=== PATIENT | female | born 2000 | race Hispanic/Latino ===

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

== ENCOUNTER → 2024-01-19 | Emergency (ER) | payer OTHER, SELFPAY ==
[~2024-01-19] MED LIST: ACETAMINOPHEN 325 MG TABLET ONE; BUPIVACAINE 0.5% PF 10 ML VIAL ONE; DOXYCYCLINE 100 MG CAP PO ONE; HYDROCODONE/APAP 5/325 MG TAB ONE; LIDOCAINE 1% MPF 5 ML VIAL ONE
--- OUTSIDE RECORDS SUMMARY | 2024-01-19 16:02 | XMS REPORT | Continuity of Care Document ---
Author Name Unknown Address [address] [facility] [address] [place] [address] [facility] Address [address] [facility] [place] [address] Care Team Providers Care Medical Field Representative Name Role Phone PCP, PATIENT DOES NOT HAVE A Primary Care Physic kate Unavailable ESPINOZA GONSALES Attending Clinician Unavailable HANDY ARRIAGA Attending Clinician Unavail able MEE DE LA GARZA Attending Clinician Unavail able CAITLYN DE LA VEGA Attending Clinician Unavailab SILIVNA Adkins Attending Clinician Unavaila TRISHA Polo Attending Clinician Unavailable Delmy PACTwanya S Attending Clinician [phone] Espinoza Gonsales MD Attending Clinician [phone] Doctor Unassigned, [place] Attending Clinician U navaillala Nurse, [facility] Attending Clinician Un available IDALIA JAIN Attending Clinician Unavailable Idalia Jain PA-C Attending Clinician [phone] NOVA Attending Clinician Unavailable PINA GONSALES Attending Clinician Unavailable Dru SUPERINTENDENT PRODUCTIONPina Hooks Attending Clinician [phone] Only, Adc Test Attending Clinician Unavailable Peg Ndiaye MD Attending Clinician [phone] Ultrasound, Ang-Mfm Attending Clinician UnavailHardik Solomon MD Attending Clinician [phone], [facility] Attending Clinician Unavailable DR PEG MORRIS Attending Clinician Unavailable ESPINOZA GONSALES Admitting Clinician Unavailable PEG NDIAYE Admitting Clinician Unavailwayne BHATT Admitting Clinician Unavailable Espinoza Gonsales MD Admitting Clinician [phone] Peg Ndiaye MD Admitting Clinician DR PEG MORRIS Admitting Clinician Unavailable Payers Payer Name Policy Type Policy Number Effective Date Expirati on Date Source [facility] JENNIFER SANCHEZ [id number] 2020 00:00:00 [facility] [place] [facility] [id number] 2024 00:00:00 Problems Condition Name Condition Details Condition Category Status Onset Date Resolution Date Last Treatment Date Treating Clinician Comments Source No known active problems No known active problems Disease [facility] Allergies, Adverse Reactions, Alerts Allergy Name Allergy Type Status Severity Reaction(s) Onset Date Inactive Date Treating Clinician Comments Source NO KNOWN ALLERGIE S Drug Class Active [facility] Social History Social Habit Start Date Stop Date Quantity Comments Source [facility] Alcohol Std Drinks [facility] History SDOH Alcohol Binge [facility] History SDOH Alcohol Comment [place] [facility] Alcohol intake 2023-09-06 00:00:00 2023-09-06 00:00:00 Lifetime non-drinker (finding) [facility] Exposure to SARS-CoV-2 (event) 2023-01-16 00:00:00 2023-01-26 09:25:[address] [facility] Tobacco use and exposure 2022-08-04 00:00:00 2022-08-04 00:00:00 Smokeless tobacco non-user [facility] History of Social function 2021-10-21 00:00:00 2021-10-21 00:00:00 [facility] History SDOH Alcohol Frequency 2020-05-07 00:00:00 2020-05-07 00:00:[address] [facility] Sex Assigned At 2002 00:00:00 2002 00:00:00 [facility] Smoking Status Start Date Stop Date Source Never smoked tobacco [facility] Medications Ordered Medication Name Filled Medication Name Start Date Stop Date Current Medication? Ordering Clinician Indication Dosage Frequency Signature (SIG) Comments Components Source oseltamivir (TAMIFLU) 75 mg capsule 2022-11 00:00: 00 Yes [id number] 75mg Take 1 capsule by mouth in the morning and 1 capsule in the evening. [facility] medroxyPROG ESTERone (DEPO-PROVE RA) syringe 150 mg 01-26 17:00: 00 01-26 16:03 :00 No [id number] 150mg [facility] medroxyPROG ESTERone (DEPO-PROVE RA) syringe 150 mg 01-26 17:00: 00 01-26 16:03 :00 No [id number] 150mg 150 mg, Intramuscu lar, ONCE, 1 dose, On Thu01/26/23 at 1200, Routine [facility] medroxyPROG ESTERone (DEPO-PROVE RA) syringe 150 mg 01-26 17:00: 00 01-26 16:03 :00 No [id number] 150mg [facility] medroxyPROG ESTERone (DEPO-PROVE RA) syringe 150 mg 01-26 17:00: 00 01-26 16:03 :00 No [id number] 150mg 150 mg, Intramuscu lar, ONCE, 1 dose, On Thu01/26/23 at 1200, Routine [facility] medroxyPROG ESTERone (DEPO-PROVE RA) syringe 150 mg 2021-11 21:30: 00 10-31 20:44 :00 No [id number] 150mg [facility] medroxyPROG ESTERone (DEPO-PROVE RA) syringe 150 mg 2021-11 21:30: 00 10-31 20:44 :00 No [id number] 150mg 150 mg, Intramuscu lar, ONCE, 1 dose, On Thu10/31/22 at 1530, Routine [facility] medroxyPROG ESTERone (DEPO-PROVE RA) syringe 150 mg 05-02 17:15: 00 05-02 16:17 :00 No [id number] 150mg [facility] (DEPO-PROVE RA) syringe 150 mg 2021-0 - 17:15: 00 05-02 16:17 :00 No [id number] 150mg 150 mg, Intramuscu lar, ONCE, 1 dose, On Thu05/02/22 at 1215, Routine [facility] medroxyPROG ESTERone (DEPO-PROVE RA) syringe 150 mg 01-21 21:45: 00 01-21 20:37 :00 No [id number] 150mg [facility] medroxyPROG ESTERone (DEPO-PROVE RA) syringe 150 mg 01-21 21:45: 00 01-21 20:37 :00 No [id number] 150mg 150 mg, Intramuscu lar, ONCE, 1 dose, On Thu01/21/22 at 1645, Routine [facility] medroxyPROG ESTERone (DEPO-PROVE RA) syringe 150 mg 2020-11 21:45: 00 10-21 20:59 :00 No [id number] 150mg [facility] medroxyPROG ESTERone (DEPO-PROVE RA) syringe 150 mg 2020-11 21:45: 00 10-21 20:59 :00 No [id number] 150mg 150 mg, Intramuscu lar, ONCE, 1 dose, On Thu10/21/21 at 1545, Routine [facility] medroxyPROG ESTERone (DEPO-PROVE RA) syringe 150 mg 2020-11 21:45: 00 10-21 20:59 :00 No [id number] 150mg [facility] medroxyPROG ESTERone (DEPO-PROVE RA) syringe 150 mg 2020-11 21:45: 00 10-21 20:59 :00 No [id number] 150mg 150 mg, Intramuscu lar, ONCE, 1 dose, On Thu10/21/21 at 1545, Routine [facility] vitamin w/FA tablet 2019-11 00:00: 00 Yes [id number] 1{tbl} Take 1 tablet by mouth daily. [facility] docusate calcium 240 mg capsule 2019-11 00:00: 00 Yes [id number] 240mg Take 1 capsule by mouth once daily as needed for Constipati on. [facility] ferrous sulfate 325 mg (65 mg iron) tablet 2019-11 00:00: 00 Yes [id number] 325mg Take 1 tablet by mouth 2 (two) times daily. [facility] ibuprofen 600 mg tablet 2019-11 00:00: 00 Yes [id number] 600mg Take 1 tablet by mouth every 6 (six) hours as needed (Pain). Take with food or milk. [facility] vitamin w/FA tablet 2019-11 00:00: 00 Yes [id number] 1{tbl} Take 1 tablet by mouth daily. [facility] docusate calcium 240 mg capsule 2019-11 00:00: 00 Yes [id number] 240mg Take 1 capsule by mouth once daily as needed for Constipati on. [facility] ferrous sulfate 325 mg (65 mg iron) tablet 2019-11 00:00: 00 Yes [id number] 325mg Take 1 tablet by mouth 2 (two) times daily. [facility] ibuprofen 600 mg tablet 2019-11 00:00: 00 Yes [id number] 600mg Take 1 tablet by mouth every 6 (six) hours as needed (Pain). Take with food or milk. [facility] vitamin w/FA tablet 2019-11 00:00: 00 Yes [id number] 1{tbl} Take 1 tablet by mouth daily. [facility] docusate calcium 240 mg capsule 2019-11 00:00: 00 Yes [id number] 240mg Take 1 capsule by mouth once daily as needed for Constipati on. [facility] ferrous sulfate 325 mg (65 mg iron) tablet 2019-11 00:00: 00 Yes [id number] 325mg Take 1 tablet by mouth 2 (two) times daily. [facility] ibuprofen 600 mg tablet 2019-11 00:00: 00 Yes [id number] 600mg Take 1 tablet by mouth every 6 (six) hours as needed (Pain). Take with food or milk. [facility] vitamin w/FA tablet 2019-11 00:00: 00 Yes [id number] 1{tbl} Take 1 tablet by mouth daily. [facility] docusate calcium 240 mg capsule 2019-11 00:00: 00 Yes [id number] 240mg Take 1 capsule by mouth once daily as needed for Constipati on. [facility] ferrous sulfate 325 mg (65 mg iron) tablet 2019-11 00:00: 00 Yes [id number] 325mg Take 1 tablet by mouth 2 (two) times daily. [facility] ibuprofen 600 mg tablet 2019-11 00:00: 00 Yes [id number] 600mg Take 1 tablet by mouth every 6 (six) hours as needed (Pain). Take with food or milk. [facility] vitamin w/FA tablet 2019-11 00:00: 00 Yes [id number] 1{tbl} Take 1 tablet by mouth daily. [facility] docusate calcium 240 mg capsule 2019-11 00:00: 00 Yes [id number] 240mg Take 1 capsule by mouth once daily as needed for Constipati on. [facility] ferrous sulfate 325 mg (65 mg iron) tablet 2019-11 00:00: 00 Yes [id number] 325mg Take 1 tablet by mouth 2 (two) times daily. [facility] ibuprofen 600 mg tablet 2019-11 00:00: 00 Yes [id number] 600mg Take 1 tablet by mouth every 6 (six) hours as needed (Pain). Take with food or milk. [facility] vitamin w/FA tablet 2019-11 00:00: 00 Yes [id number] 1{tbl} Take 1 tablet by mouth daily. [facility] docusate calcium 240 mg capsule 2019-11 00:00: 00 Yes [id number] 240mg Take 1 capsule by mouth once daily as needed for Constipati on. [facility] ferrous sulfate 325 mg (65 mg iron) tablet 2019-11 00:00: 00 Yes [id number] 325mg Take 1 tablet by mouth 2 (two) times daily. [facility] ibuprofen 600 mg tablet 2019-11 00:00: 00 Yes [id number] 600mg Take 1 tablet by mouth every 6 (six) hours as needed (Pain). Take with food or milk. [facility] vitamin w/FA tablet 2019-11 00:00: 00 Yes [id number] 1{tbl} Take 1 tablet by mouth daily. [facility] docusate calcium 240 mg capsule 2019-11 00:00: 00 Yes [id number] 240mg Take 1 capsule by mouth once daily as needed for Constipati on. [facility] ferrous sulfate 325 mg (65 mg iron) tablet 2019-11 00:00: 00 Yes [id number] 325mg Take 1 tablet by mouth 2 (two) times daily. [facility] ibuprofen 600 mg tablet 2019-11 00:00: 00 Yes [id number] 600mg Take 1 tablet by mouth every 6 (six) hours as needed (Pain). Take with food or milk. [facility] vitamin w/FA tablet 2019-11 00:00: 00 Yes [id number] 1{tbl} Take 1 tablet by mouth daily. [facility] docusate calcium 240 mg capsule 2019-11 00:00: 00 Yes [id number] 240mg Take 1 capsule by mouth once daily as needed for Constipati on. [facility] ferrous sulfate 325 mg (65 mg iron) tablet 2019-11 00:00: 00 Yes [id number] 325mg Take 1 tablet by mouth 2 (two) times daily. [facility] ibuprofen 600 mg tablet 2019-11 00:00: 00 Yes [id number] 600mg Take 1 tablet by mouth every 6 (six) hours as needed (Pain). Take with food or milk. [facility] vitamin w/FA tablet 2019-11 00:00: 00 Yes [id number] 1{tbl} Take 1 tablet by mouth daily. [facility] docusate calcium 240 mg capsule 2019-11 00:00: 00 Yes [id number] 240mg Take 1 capsule by mouth once daily as needed for Constipati on. [facility] ferrous sulfate 325 mg (65 mg iron) tablet 2019-11 00:00: 00 Yes [id number] 325mg Take 1 tablet by mouth 2 (two) times daily. [facility] ibuprofen 600 mg tablet 2019-11 00:00: 00 Yes [id number] 600mg Take 1 tablet by mouth every 6 (six) hours as needed (Pain). Take with food or milk. [facility] vitamin w/FA tablet 2019-11 00:00: 00 Yes [id number] 1{tbl} Take 1 tablet by mouth daily. [facility] docusate calcium 240 mg capsule 2019-11 00:00: 00 Yes [id number] 240mg Take 1 capsule by mouth once daily as needed for Constipati on. [facility] ferrous sulfate 325 mg (65 mg iron) tablet 2019-11 00:00: 00 Yes [id number] 325mg Take 1 tablet by mouth 2 (two) times daily. [facility] ibuprofen 600 mg tablet 2019-11 00:00: 00 Yes [id number] 600mg Take 1 tablet by mouth every 6 (six) hours as needed (Pain). Take with food or milk. [facility] vitamin w/FA tablet 2019-11 00:00: 00 Yes [id number] 1{tbl} Take 1 tablet by mouth daily. [facility] docusate calcium 240 mg capsule 2019-11 00:00: 00 Yes [id number] 240mg Take 1 capsule by mouth once daily as needed for Constipati on. [facility] ferrous sulfate 325 mg (65 mg iron) tablet 2019-11 00:00: 00 Yes [id number] 325mg Take 1 tablet by mouth 2 (two) times daily. [facility] ibuprofen 600 mg tablet 2019-11 00:00: 00 Yes [id number] 600mg Take 1 tablet by mouth every 6 (six) hours as needed (Pain). Take with food or milk. [facility] vitamin w/FA tablet 2019-11 00:00: 00 01-26 00:00 :00 No [id number] 1{tbl} Take 1 tablet by mouth daily. [facility] docusate calcium 240 mg capsule 2019-11 00:00: 01-26 00:00 :00 No [id number] 240mg Take 1 capsule by mouth once daily as needed for Constipati on. [facility] ferrous sulfate 325 mg (65 mg iron) tablet 2019-11 00:00: 01-26 00:00 :00 No [id number] 325mg Take 1 tablet by mouth 2 (two) times daily. [facility] ibuprofen 600 mg tablet 2019-11 00:00: 01-26 00:00 :00 No [id number] 600mg Take 1 tablet by mouth every 6 (six) hours as needed (Pain). Take with food or milk. [facility] vitamin w/FA tablet 2019-11 00:00: 01-26 00:00 :00 No [id number] 1{tbl} Take 1 tablet by mouth daily. [facility] docusate calcium 240 mg capsule 2019-11 00:00: 01-26 00:00 :00 No [id number] 240mg Take 1 capsule by mouth once daily as needed for Constipati on. [facility] ferrous sulfate 325 mg (65 mg iron) tablet 2019-11 00:00: 00 01-26 00:00 :00 No [id number] 325mg Take 1 tablet by mouth 2 (two) times daily. [facility] ibuprofen 600 mg tablet 2019-11 0 00:00: 00 01-26 00:00 :00 No [id number] 600mg Take 1 tablet by mouth every 6 (six) hours as needed (Pain). Take with food or milk. [facility] Immunizations Ordered Immunization Name Filled Immunization Name Date Status Comments Source HPV9 2023-01-26 00:00:[address] [facility] HPV9 2023-01-26 00:00:[address] [facility] TDAP 2020-06-04 00:00:[address] [facility] TDAP 2020-06-04 00:00:[address] [facility] TDAP 2020-06-04 00:00:[address] [facility] TDAP 2020-06-04 00:00:[address] [facility] TDAP 2020-06-04 00:00:[address] [facility] TDAP 2020-06-04 00:00:[address] [facility] TDAP 2020-06-04 00:00:[address] [facility] TDAP 2020-06-04 00:00:[address] [facility] TDAP 2020-06-04 00:00:[address] [facility] TDAP 2020-06-04 00:00:[address] [facility] TDAP 2020-06-04 00:00:[address] [facility] TDAP 2020-06-04 00:00:[address] [facility] TDAP 2020-06-04 00:00:[address] [facility] TDAP 2018-02-26 00:00:[address] [facility] TDAP 2018-02-26 00:00:[address] [facility] TDAP 2018-02-26 00:00:[address] [facility] TDAP 2018-02-26 00:00:[address] [facility] TDAP 2018-02-26 00:00:[address] [facility] TDAP 2018-02-26 00:00:[address] [facility] TDAP 2018-02-26 00:00:[address] [facility] TDAP 2018-02-26 00:00:[address] [facility] TDAP 2018-02-26 00:00:[address] [facility] TDAP 2018-02-26 00:00:[address] [facility] TDAP 2018-02-26 00:00:[address] [facility] TDAP 2018-02-26 00:00:[address] [facility] TDAP 2018-02-26 00:00:[address] [facility] HPV 2015-05-03 00:00:[address] [facility] Meningococcal Polysaccharide (groups A, C, Y and W-135) conjugate vaccine (MCV4P) 2015-05-03 00:00:[address] [facility] TDAP 2015-05-03 00:00:[address] [facility] HPV 2015-05-03 00:00:[address] [facility] Meningococcal Polysaccharide (groups A, C, Y and W-135) conjugate vaccine (MCV4P) 2015-05-03 00:00:[address] [facility] TDAP 2015-05-03 00:00:[address] [facility] HPV 2015-05-03 00:00:[address] [facility] Meningococcal Polysaccharide (groups A, C, Y and W-135) conjugate vaccine (MCV4P) 2015-05-03 00:00:[address] [facility] TDAP 2015-05-03 00:00:[address] [facility] HPV 2015-05-03 00:00:[address] [facility] Meningococcal Polysaccharide (groups A, C, Y and W-135) conjugate vaccine (MCV4P) 2015-05-03 00:00:[address] [facility] TDAP 2015-05-03 00:00:[address] [facility] HPV 2015-05-03 00:00:[address] [facility] Meningococcal Polysaccharide (groups A, C, Y and W-135) conjugate vaccine (MCV4P) 2015-05-03 00:00:[address] [facility] TDAP 2015-05-03 00:00:[address] [facility] HPV 2015-05-03 00:00:[address] [facility] Meningococcal Polysaccharide (groups A, C, Y and W-135) conjugate vaccine (MCV4P) 2015-05-03 00:00:[address] [facility] TDAP 2015-05-03 00:00:[address] [facility] HPV 2015-05-03 00:00:[address] [facility] Meningococcal Polysaccharide (groups A, C, Y and W-135) conjugate vaccine (MCV4P) 2015-05-03 00:00:[address] [facility] TDAP 2015-05-03 00:00:[address] [facility] HPV 2015-05-03 00:00:[address] [facility] Meningococcal Polysaccharide (groups A, C, Y and W-135) conjugate vaccine (MCV4P) 2015-05-03 00:00:[address] [facility] TDAP 2015-05-03 00:00:[address] [facility] HPV 2015-05-03 00:00:[address] [facility] Meningococcal Polysaccharide (groups A, C, Y and W-135) conjugate vaccine (MCV4P) 2015-05-03 00:00:[address] [facility] TDAP 2015-05-03 00:00:[address] [facility] HPV 2015-05-03 00:00:[address] [facility] Meningococcal Polysaccharide (groups A, C, Y and W-135) conjugate vaccine (MCV4P) 2015-05-03 00:00:[address] [facility] TDAP 2015-05-03 00:00:[address] [facility] HPV 2015-05-03 00:00:[address] [facility] Meningococcal Polysaccharide (groups A, C, Y and W-135) conjugate vaccine (MCV4P) 2015-05-03 00:00:[address] [facility] TDAP 2015-05-03 00:00:[address] [facility] HPV 2015-05-03 00:00:[address] [facility] Meningococcal Polysaccharide (groups A, C, Y and W-135) conjugate vaccine (MCV4P) 2015-05-03 00:00:[address] [facility] TDAP 2015-05-03 00:00:[address] [facility] HPV 2015-05-03 00:00:[address] [facility] Meningococcal Polysaccharide (groups A, C, Y and W-135) conjugate vaccine (MCV4P) 2015-05-03 00:00:[address] [facility] TDAP 2015-05-03 00:00:[address] [facility] HEPATITIS A 2008-03-29 00:00:[address] [facility] HEPATITIS A 2008-03-29 00:00:[address] [facility] HEPATITIS A 2008-03-29 00:00:[address] [facility] HEPATITIS A 2008-03-29 00:00:[address] [facility] HEPATITIS A 2008-03-29 00:00:[address] [facility] HEPATITIS A 2008-03-29 00:00:[address] [facility] HEPATITIS A 2008-03-29 00:00:[address] [facility] HEPATITIS A 2008-03-29 00:00:[address] [facility] HEPATITIS A 2008-03-29 00:00:[address] [facility] HEPATITIS A 2008-03-29 00:00:[address] [facility] HEPATITIS A 2008-03-29 00:00:[address] [facility] HEPATITIS A 2008-03-29 00:00:[address] [facility] HEPATITIS A 2008-03-29 00:00:[address] [facility] Polio (IPV/OPV) 2007-06-09 00:00:[address] [facility] Proquad (MMR/VARICELLA) 2007-06-09 00:00:[address] [facility] DTAP 2007-06-09 00:00:[address] [facility] HEPATITIS A 2007-06-09 00:00:[address] [facility] Polio (IPV/OPV) 2007-06-09 00:00:[address] [facility] Proquad (MMR/VARICELLA) 2007-06-09 00:00:[address] [facility] DTAP 2007-06-09 00:00:[address] [facility] HEPATITIS A 2007-06-09 00:00:[address] [facility] Polio (IPV/OPV) 2007-06-09 00:00:[address] [facility] Proquad (MMR/VARICELLA) 2007-06-09 00:00:[address] [facility] DTAP 2007-06-09 00:00:[address] [facility] HEPATITIS A 2007-06-09 00:00:[address] [facility] Polio (IPV/OPV) 2007-06-09 00:00:[address] [facility] Proquad (MMR/VARICELLA) 2007-06-09 00:00:[address] [facility] DTAP 2007-06-09 00:00:[address] [facility] HEPATITIS A 2007-06-09 00:00:[address] [facility] Polio (IPV/OPV) 2007-06-09 00:00:[address] [facility] Proquad (MMR/VARICELLA) 2007-06-09 00:00:[address] [facility] DTAP 2007-06-09 00:00:[address] [facility] HEPATITIS A 2007-06-09 00:00:[address] [facility] Polio (IPV/OPV) 2007-06-09 00:00:[address] [facility] Proquad (MMR/VARICELLA) 2007-06-09 00:00:[address] [facility] DTAP 2007-06-09 00:00:[address] [facility] HEPATITIS A 2007-06-09 00:00:[address] [facility] Polio (IPV/OPV) 2007-06-09 00:00:[address] [facility] Proquad (MMR/VARICELLA) 2007-06-09 00:00:[address] [facility] DTAP 2007-06-09 00:00:[address] [facility] HEPATITIS A 2007-06-09 00:00:[address] [facility] Polio (IPV/OPV) 2007-06-09 00:00:00 Completed [facility] Proquad (MMR/VARICELLA) 2007-06-09 00:00:[address] [facility] DTAP 2007-06-09 00:00:[address] [facility] HEPATITIS A 2007-06-09 00:00:[address] [facility] Polio (IPV/OPV) 2007-06-09 00:00:[address] [facility] Proquad (MMR/VARICELLA) 2007-06-09 00:00:[address] [facility] DTAP 2007-06-09 00:00:[address] [facility] HEPATITIS A 2007-06-09 00:00:[address] [facility] Polio (IPV/OPV) 2007-06-09 00:00:[address] [facility] Proquad (MMR/VARICELLA) 2007-06-09 00:00:[address] [facility] DTAP 2007-06-09 00:00:[address] [facility] HEPATITIS A 2007-06-09 00:00:[address] [facility] Polio (IPV/OPV) 2007-06-09 00:00:[address] [facility] Proquad (MMR/VARICELLA) 2007-06-09 00:00:[address] [facility] DTAP 2007-06-09 00:00:[address] [facility] HEPATITIS A 2007-06-09 00:00:[address] [facility] Polio (IPV/OPV) 2007-06-09 00:00:[address] [facility] Proquad (MMR/VARICELLA) 2007-06-09 00:00:[address] [facility] DTAP 2007-06-09 00:00:[address] [facility] HEPATITIS A 2007-06-09 00:00:[address] [facility] Polio (IPV/OPV) 2007-06-09 00:00:[address] [facility] Proquad (MMR/VARICELLA) 2007-06-09 00:00:[address] [facility] DTAP 2007-06-09 00:00:[address] [facility] HEPATITIS A 2007-06-09 00:00:[address] [facility] MMR 2004-08-26 00:00:[address] [facility] Varicella (varivax)(chicken pox) 2004-08-26 00:00:[address] [facility] Pneumococcal 7 Conjugate, PCV7 (Prevnar7) 2004-08-26 00:00:[address] [facility] MMR 2004-08-26 00:00:[address] [facility] Varicella (varivax)(chicken pox) 2004-08-26 00:00:[address] [facility] Pneumococcal 7 Conjugate, PCV7 (Prevnar7) 2004-08-26 00:00:[address] [facility] MMR 2004-08-26 00:00:[address] [facility] Varicella (varivax)(chicken pox) 2004-08-26 00:00:[address] [facility] Pneumococcal 7 Conjugate, PCV7 (Prevnar7) 2004-08-26 00:00:[address] [facility] MMR 2004-08-26 00:00:[address] [facility] Varicella (varivax)(chicken pox) 2004-08-26 00:00:[address] [facility] Pneumococcal 7 Conjugate, PCV7 (Prevnar7) 2004-08-26 00:00:[address] [facility] MMR 2004-08-26 00:00:[address] [facility] Varicella (varivax)(chicken pox) 2004-08-26 00:00:[address] [facility] Pneumococcal 7 Conjugate, PCV7 (Prevnar7) 2004-08-26 00:00:00 Completed [facility] 2004-08-26 00:00:[address] [facility] Varicella (varivax)(chicken pox) 2004-08-26 00:00:[address] [facility] Pneumococcal 7 Conjugate, PCV7 (Prevnar7) 2004-08-26 00:00:00 Completed [facility] 2004-08-26 00:00:[address] [facility] Varicella (varivax)(chicken pox) 2004-08-26 00:00:[address] [facility] Pneumococcal 7 Conjugate, PCV7 (Prevnar7) 2004-08-26 00:00:00 Completed [facility] 2004-08-26 00:00:[address] [facility] Varicella (varivax)(chicken pox) 2004-08-26 00:00:[address] [facility] Pneumococcal 7 Conjugate, PCV7 (Prevnar7) 2004-08-26 00:00:00 Completed [facility] 2004-08-26 00:00:[address] [facility] Varicella (varivax)(chicken pox) 2004-08-26 00:00:[address] [facility] Pneumococcal 7 Conjugate, PCV7 (Prevnar7) 2004-08-26 00:00:[address] [facility] MMR 2004-08-26 00:00:[address] [facility] Varicella (varivax)(chicken pox) 2004-08-26 00:00:[address] [facility] Pneumococcal 7 Conjugate, PCV7 (Prevnar7) 2004-08-26 00:00:[address] [facility] MMR 2004-08-26 00:00:[address] [facility] Varicella (varivax)(chicken pox) 2004-08-26 00:00:[address] [facility] Pneumococcal 7 Conjugate, PCV7 (Prevnar7) 2004-08-26 00:00:[address] [facility] MMR 2004-08-26 00:00:[address] [facility] Varicella (varivax)(chicken pox) 2004-08-26 00:00:[address] [facility] Pneumococcal 7 Conjugate, PCV7 (Prevnar7) 2004-08-26 00:00:[address] [facility] MMR 2004-08-26 00:00:[address] [facility] Varicella (varivax)(chicken pox) 2004-08-26 00:00:[address] [facility] Pneumococcal 7 Conjugate, PCV7 (Prevnar7) 2004-08-26 00:00:[address] [facility] DTAP 2004-07-18 00:00:[address] [facility] HIB 4 Dose Schedule 2004-07-18 00:00:[address] [facility] DTAP 2004-07-18 00:00:[address] [facility] HIB 4 Dose Schedule 2004-07-18 00:00:[address] [facility] DTAP 2004-07-18 00:00:[address] [facility] HIB 4 Dose Schedule 2004-07-18 00:00:[address] [facility] DTAP 2004-07-18 00:00:[address] [facility] HIB 4 Dose Schedule 2004-07-18 00:00:[address] [facility] DTAP 2004-07-18 00:00:[address] [facility] HIB 4 Dose Schedule 2004-07-18 00:00:[address] [facility] DTAP 2004-07-18 00:00:[address] [facility] HIB 4 Dose Schedule 2004-07-18 00:00:[address] [facility] DTAP 2004-07-18 00:00:[address] [facility] HIB 4 Dose Schedule 2004-07-18 00:00:[address] [facility] DTAP 2004-07-18 00:00:[address] [facility] HIB 4 Dose Schedule 2004-07-18 00:00:[address] [facility] DTAP 2004-07-18 00:00:[address] [facility] HIB 4 Dose Schedule 2004-07-18 00:00:[address] [facility] DTAP 2004-07-18 00:00:[address] [facility] HIB 4 Dose Schedule 2004-07-18 00:00:[address] [facility] DTAP 2004-07-18 00:00:[address] [facility] HIB 4 Dose Schedule 2004-07-18 00:00:[address] [facility] DTAP 2004-07-18 00:00:[address] [facility] HIB 4 Dose Schedule 2004-07-18 00:00:[address] [facility] DTAP 2004-07-18 00:00:[address] [facility] HIB 4 Dose Schedule 2004-07-18 00:00:[address] [facility] Hep B, Adol or Pedi Dosage 2003-07-02 00:00:[address] [facility] Polio (IPV/OPV) 2003-07-02 00:00:[address] [facility] DTAP 2003-07-02 00:00:[address] [facility] HIB 4 Dose Schedule 2003-07-02 00:00:[address] [facility] Hep B, Adol or Pedi Dosage 2003-07-02 00:00:[address] [facility] Polio (IPV/OPV) 2003-07-02 00:00:[address] [facility] DTAP 2003-07-02 00:00:[address] [facility] HIB 4 Dose Schedule 2003-07-02 00:00:[address] [facility] Hep B, Adol or Pedi Dosage 2003-07-02 00:00:[address] [facility] Polio (IPV/OPV) 2003-07-02 00:00:[address] [facility] DTAP 2003-07-02 00:00:[address] [facility] HIB 4 Dose Schedule 2003-07-02 00:00:[address] [facility] Hep B, Adol or Pedi Dosage 2003-07-02 00:00:[address] [facility] Polio (IPV/OPV) 2003-07-02 00:00:[address] [facility] DTAP 2003-07-02 00:00:[address] [facility] HIB 4 Dose Schedule 2003-07-02 00:00:[address] [facility] Hep B, Adol or Pedi Dosage 2003-07-02 00:00:[address] [facility] Polio (IPV/OPV) 2003-07-02 00:00:[address] [facility] DTAP 2003-07-02 00:00:[address] [facility] HIB 4 Dose Schedule 2003-07-02 00:00:[address] [facility] Hep B, Adol or Pedi Dosage 2003-07-02 00:00:[address] [facility] Polio (IPV/OPV) 2003-07-02 00:00:[address] [facility] DTAP 2003-07-02 00:00:[address] [facility] HIB 4 Dose Schedule 2003-07-02 00:00:[address] [facility] Hep B, Adol or Pedi Dosage 2003-07-02 00:00:[address] [facility] Polio (IPV/OPV) 2003-07-02 00:00:[address] [facility] DTAP 2003-07-02 00:00:[address] [facility] HIB 4 Dose Schedule 2003-07-02 00:00:[address] [facility] Hep B, Adol or Pedi Dosage 2003-07-02 00:00:[address] [facility] Polio (IPV/OPV) 2003-07-02 00:00:[address] [facility] DTAP 2003-07-02 00:00:[address] [facility] HIB 4 Dose Schedule 2003-07-02 00:00:[address] [facility] Hep B, Adol or Pedi Dosage 2003-07-02 00:00:[address] [facility] Polio (IPV/OPV) 2003-07-02 00:00:[address] [facility] DTAP 2003-07-02 00:00:[address] [facility] HIB 4 Dose Schedule 2003-07-02 00:00:[address] [facility] Hep B, Adol or Pedi Dosage 2003-07-02 00:00:[address] [facility] Polio (IPV/OPV) 2003-07-02 00:00:[address] [facility] DTAP 2003-07-02 00:00:[address] [facility] HIB 4 Dose Schedule 2003-07-02 00:00:[address] [facility] Hep B, Adol or Pedi Dosage 2003-07-02 00:00:[address] [facility] Polio (IPV/OPV) 2003-07-02 00:00:[address] [facility] DTAP 2003-07-02 00:00:[address] [facility] HIB 4 Dose Schedule 2003-07-02 00:00:[address] [facility] Hep B, Adol or Pedi Dosage 2003-07-02 00:00:[address] [facility] Polio (IPV/OPV) 2003-07-02 00:00:[address] [facility] DTAP 2003-07-02 00:00:[address] [facility] HIB 4 Dose Schedule 2003-07-02 00:00:[address] [facility] Hep B, Adol or Pedi Dosage 2003-07-02 00:00:[address] [facility] Polio (IPV/OPV) 2003-07-02 00:00:[address] [facility] DTAP 2003-07-02 00:00:[address] [facility] HIB 4 Dose Schedule 2003-07-02 00:00:[address] [facility] Polio (IPV/OPV) 2003-05-01 00:00:[address] [facility] DTAP 2003-05-01 00:00:[address] [facility] HIB 4 Dose Schedule 2003-05-01 00:00:[address] [facility] Polio (IPV/OPV) 2003-05-01 00:00:[address] [facility] DTAP 2003-05-01 00:00:[address] [facility] HIB 4 Dose Schedule 2003-05-01 00:00:[address] [facility] Polio (IPV/OPV) 2003-05-01 00:00:[address] [facility] DTAP 2003-05-01 00:00:[address] [facility] HIB 4 Dose Schedule 2003-05-01 00:00:[address] [facility] Polio (IPV/OPV) 2003-05-01 00:00:[address] [facility] DTAP 2003-05-01 00:00:[address] [facility] HIB 4 Dose Schedule 2003-05-01 00:00:[address] [facility] Polio (IPV/OPV) 2003-05-01 00:00:[address] [facility] DTAP 2003-05-01 00:00:[address] [facility] HIB 4 Dose Schedule 2003-05-01 00:00:[address] [facility] Polio (IPV/OPV) 2003-05-01 00:00:[address] [facility] DTAP 2003-05-01 00:00:[address] [facility] HIB 4 Dose Schedule 2003-05-01 00:00:[address] [facility] Polio (IPV/OPV) 2003-05-01 00:00:[address] [facility] DTAP 2003-05-01 00:00:[address] [facility] HIB 4 Dose Schedule 2003-05-01 00:00:[address] [facility] Polio (IPV/OPV) 2003-05-01 00:00:[address] [facility] DTAP 2003-05-01 00:00:[address] [facility] HIB 4 Dose Schedule 2003-05-01 00:00:[address] [facility] Polio (IPV/OPV) 2003-05-01 00:00:[address] [facility] DTAP 2003-05-01 00:00:[address] [facility] HIB 4 Dose Schedule 2003-05-01 00:00:[address] [facility] Polio (IPV/OPV) 2003-05-01 00:00:[address] [facility] DTAP 2003-05-01 00:00:[address] [facility] HIB 4 Dose Schedule 2003-05-01 00:00:[address] [facility] Polio (IPV/OPV) 2003-05-01 00:00:[address] [facility] DTAP 2003-05-01 00:00:[address] [facility] HIB 4 Dose Schedule 2003-05-01 00:00:[address] [facility] Polio (IPV/OPV) 2003-05-01 00:00:[address] [facility] DTAP 2003-05-01 00:00:[address] [facility] HIB 4 Dose Schedule 2003-05-01 00:00:[address] [facility] Polio (IPV/OPV) 2003-05-01 00:00:[address] [facility] DTAP 2003-05-01 00:00:[address] [facility] HIB 4 Dose Schedule 2003-05-01 00:00:[address] [facility] Hep B, Adol or Pedi Dosage 2003-02-27 00:00:[address] [facility] Polio (IPV/OPV) 2003-02-27 00:00:[address] [facility] DTAP 2003-02-27 00:00:[address] [facility] HIB 4 Dose Schedule 2003-02-27 00:00:[address] [facility] Hep B, Adol or Pedi Dosage 2003-02-27 00:00:[address] [facility] Polio (IPV/OPV) 2003-02-27 00:00:[address] [facility] DTAP 2003-02-27 00:00:[address] [facility] HIB 4 Dose Schedule 2003-02-27 00:00:[address] [facility] Hep B, Adol or Pedi Dosage 2003-02-27 00:00:[address] [facility] Polio (IPV/OPV) 2003-02-27 00:00:[address] [facility] DTAP 2003-02-27 00:00:[address] [facility] HIB 4 Dose Schedule 2003-02-27 00:00:[address] [facility] Hep B, Adol or Pedi Dosage 2003-02-27 00:00:[address] [facility] Polio (IPV/OPV) 2003-02-27 00:00:[address] [facility] DTAP 2003-02-27 00:00:[address] [facility] HIB 4 Dose Schedule 2003-02-27 00:00:[address] [facility] Hep B, Adol or Pedi Dosage 2003-02-27 00:00:[address] [facility] Polio (IPV/OPV) 2003-02-27 00:00:[address] [facility] DTAP 2003-02-27 00:00:[address] [facility] HIB 4 Dose Schedule 2003-02-27 00:00:[address] [facility] Hep B, Adol or Pedi Dosage 2003-02-27 00:00:[address] [facility] Polio (IPV/OPV) 2003-02-27 00:00:[address] [facility] DTAP 2003-02-27 00:00:[address] [facility] HIB 4 Dose Schedule 2003-02-27 00:00:[address] [facility] Hep B, Adol or Pedi Dosage 2003-02-27 00:00:[address] [facility] Polio (IPV/OPV) 2003-02-27 00:00:[address] [facility] DTAP 2003-02-27 00:00:[address] [facility] HIB 4 Dose Schedule 2003-02-27 00:00:[address] [facility] Hep B, Adol or Pedi Dosage 2003-02-27 00:00:[address] [facility] Polio (IPV/OPV) 2003-02-27 00:00:[address] [facility] DTAP 2003-02-27 00:00:[address] [facility] HIB 4 Dose Schedule 2003-02-27 00:00:[address] [facility] Hep B, Adol or Pedi Dosage 2003-02-27 00:00:[address] [facility] Polio (IPV/OPV) 2003-02-27 00:00:[address] [facility] DTAP 2003-02-27 00:00:[address] [facility] HIB 4 Dose Schedule 2003-02-27 00:00:[address] [facility] Hep B, Adol or Pedi Dosage 2003-02-27 00:00:[address] [facility] Polio (IPV/OPV) 2003-02-27 00:00:[address] [facility] DTAP 2003-02-27 00:00:[address] [facility] HIB 4 Dose Schedule 2003-02-27 00:00:[address] [facility] Hep B, Adol or Pedi Dosage 2003-02-27 00:00:[address] [facility] Polio (IPV/OPV) 2003-02-27 00:00:[address] [facility] DTAP 2003-02-27 00:00:[address] [facility] HIB 4 Dose Schedule 2003-02-27 00:00:[address] [facility] Hep B, Adol or Pedi Dosage 2003-02-27 00:00:[address] [facility] Polio (IPV/OPV) 2003-02-27 00:00:[address] [facility] DTAP 2003-02-27 00:00:[address] [facility] HIB 4 Dose Schedule 2003-02-27 00:00:[address] [facility] Hep B, Adol or Pedi Dosage 2003-02-27 00:00:[address] [facility] Polio (IPV/OPV) 2003-02-27 00:00:[address] [facility] DTAP 2003-02-27 00:00:[address] [facility] HIB 4 Dose Schedule 2003-02-27 00:00:[address] [facility] Hep B, Adol or Pedi Dosage 2002 00:00:[address] [facility] Hep B, Adol or Pedi Dosage 2002 00:00:[address] [facility] Hep B, Adol or Pedi Dosage 2002 00:00:[address] [facility] Hep B, Adol or Pedi Dosage 2002 00:00:[address] [facility] Hep B, Adol or Pedi Dosage 2002 00:00:[address] [facility] Hep B, Adol or Pedi Dosage 2002 00:00:[address] [facility] Hep B, Adol or Pedi Dosage 2002 00:00:[address] [facility] Hep B, Adol or Pedi Dosage 2002 00:00:[address] [facility] Hep B, Adol or Pedi Dosage 2002 00:00:[address] [facility] Hep B, Adol or Pedi Dosage 2002 00:00:[address] [facility] Hep B, Adol or Pedi Dosage 2002 00:00:[address] [facility] Hep B, Adol or Pedi Dosage 2002 00:00:[address] [facility] Hep B, Adol or Pedi Dosage 2002 00:00:[address] [facility] TDAP Unknown Completed [facility] DTAP Unknown Completed [facility] DTAP Unknown Completed [facility] DTAP Unknown Completed [facility] DTAP Unknown Com[address] [facility] DTAP Unknown Com[address] [facility] HIB 4 Dose Schedule Unknown Completed [facility] HIB 4 Dose Schedule Unknown Completed [facility] HIB 4 Dose Schedule Unknown Completed [facility] HIB 4 Dose Schedule Unknown Completed [facility] HEPATITIS A Unknown Completed [facility] HEPATITIS A Unknown Completed [facility] Hep B, Adol or Pedi Dosage Unknown Completed [facility] Hep B, Adol or Pedi Dosage Unknown Completed [facility] Hep B, Adol or Pedi Dosage Unknown Completed [facility] HPV Unknown Completed [facility] Meningococcal Polysaccharide (groups A, C, Y and W-135) conjugate vaccine (MCV4P) Unknown Completed [facility] MMR Unknown Completed [facility] Polio (IPV/OPV) Unknown Completed [facility] Polio (IPV/OPV) Unknown Completed [facility] Polio (IPV/OPV) Unknown Completed [facility] Polio (IPV/OPV) Unknown Completed [facility] Proquad (MMR/VARICELLA) Unknown Completed [facility] TDAP Unknown Completed [facility] TDAP Unknown Completed [facility] Varicella (varivax)(chicken pox) Unknown Completed [facility] Pneumococcal 7 Conjugate, PCV7 (Prevnar7) Unknown Completed [facility] HPV9 [address] [facility] Vital Signs Vital Name Observation Time Observation Value Comments S ource Systolic blood pressure 2023-09-06 19:35:00 112 mm[Hg] [facility] Diastolic blood pressure 2023-09-06 19:35:00 75 mm[Hg] [facility] Heart rate 2023-09-06 19:35:00 110 /min [facility] Body temperature 2023-09-06 19:35:[address] [facility] Respiratory rate 2023-09-06 19:35:00 14 /min [facility] Oxygen saturation in Arterial blood by Pulse oximetry 2023-09-06 19:35:00 99 /min [facility] Body height 2023-09-06 17:32:00 147.3 cm [facility] [facility] [place] Body weight 2023-09-06 17:32:00 67.132 kg [facility] [place] BMI 2023-09-06 17:32:00 30.93 kg/m2 [facility] [place] Systolic blood pressure 2023-01-26 14:43:00 101 mm[Hg] [facility] Diastolic blood pressure 2023-01-26 14:43:00 60 mm[Hg] [facility] Heart rate 2023-01-26 14:43:00 71 /min [facility] Body temperature 2023-01-26 14:43:[address] [facility] Respiratory rate 2023-01-26 14:43:00 18 /min [facility] Body height 2023-01-26 14:43:00 121.9 cm [facility] [place] Body weight 2023-01-26 14:43:00 65.137 kg [facility] BMI 2023-01-26 14:43:00 43.82 kg/m2 [facility] [place] Systolic blood pressure 2022-10-31 20:42:00 106 mm[Hg] [facility] Diastolic blood pressure 2022-10-31 20:42:00 74 mm[Hg] [facility] Heart rate 2022-10-31 20:42:00 68 /min [facility] Body temperature 2022-10-31 20:42:[address] [facility] Respiratory rate 2022-10-31 20:42:00 18 /min [facility] Body height 2022-10-31 20:42:00 147.3 cm [facility] [place] Body weight 2022-10-31 20:42:00 64.864 kg [facility] BMI 2022-10-31 20:42:00 29.89 kg/m2 [facility] [place] Systolic blood pressure 2022-08-04 21:42:00 108 mm[Hg] [facility] Diastolic blood pressure 2022-08-04 21:42:00 70 mm[Hg] [facility] Heart rate 2022-08-04 21:42:00 74 /min [facility] Body temperature 2022-08-04 21:42:[address] [facility] Respiratory rate 2022-08-04 21:42:00 16 /min [facility] Body height 2022-08-04 21:42:00 147.3 cm [facility] [place] [facility] Body weight 2022-08-04 21:42:00 61.598 kg [facility] [place] BMI 2022-08-04 21:42:00 28.38 kg/m2 [facility] [place] Systolic blood pressure 2022-05-02 16:11:00 109 mm[Hg] [facility] Diastolic blood pressure 2022-05-02 16:11:00 65 mm[Hg] [facility] Heart rate 2022-05-02 16:11:00 76 /min [facility] Body temperature 2022-05-02 16:11:[address] [facility] Respiratory rate 2022-05-02 16:11:00 18 /min [facility] Body height 2022-05-02 16:11:00 147.3 cm [facility] Body weight 2022-05-02 16:11:00 64.864 kg [facility] BMI 2022-05-02 16:11:00 29.89 kg/m2 [facility] Body mass index (BMI) [Percentile] Per age and sex 2022-05-02 16:11:00 93.49 % [facility] Systolic blood pressure 2022-01-21 20:35:00 110 mm[Hg] [facility] Diastolic blood pressure 2022-01-21 20:35:00 71 mm[Hg] [facility] Heart rate 2022-01-21 20:35:00 97 /min [facility] Respiratory rate 2022-01-21 20:35:00 18 /min [facility] Body height 2022-01-21 20:35:00 147.3 cm [facility] 2022-01-21 20:35:00 67.132 kg [facility] BMI 2022-01-21 20:35:00 30.93 kg/m2 [facility] Body mass index (BMI) [Percentile] Per age and sex 2022-01-21 20:35:00 94.89 % [facility] Systolic blood pressure 2021-10-21 20:41:00 107 mm[Hg] [facility] Diastolic blood pressure 2021-10-21 20:41:00 69 mm[Hg] [facility] Heart rate 2021-10-21 20:41:00 80 /min [facility] Body temperature 2021-10-21 20:41:[address] [facility] Respiratory rate 2021-10-21 20:41:00 18 /min [facility] Body height 2021-10-21 20:41:00 147.3 cm [facility] Body weight 2021-10-21 20:41:00 63.957 kg [facility] BMI 2021-10-21 20:41:00 29.47 kg/m2 [facility] Body mass index (BMI) [Percentile] Per age and sex 2021-10-21 20:41:00 93.37 % [facility] Procedures Procedure Date / Time Performed Performing Clinician Source ASSIGNMENT OF BENEFITS 2023-09-06 18:12:54 Marly kapoor Unassigned, [place] [facility] RAPID STREP SCREEN FOR GROUP A 2023-09-06 18:06:[address] [facility] RAPID INFLUENZA A/B 2023-09-06 18:06:[address] [facility] COVID-19 (ID NOW RAPID TESTING) 2023-09-06 18:06:[address] [facility] NOTICE OF PRIVACY PRACTICES 2023-09-06 17:21:21 Doctor Unassigned, [place] [facility] CONSENT/REFUSAL FOR DIAGNOSIS AND TREATMENT 2023-09-06 17:20:14 Doctor Unassigned, [place] [facility] ASSIGNMENT OF BENEFITS 2023-09-06 17:19:46 Docto r Unassigned, [place] [facility] GARDASIL 9 (HPV 9V) VACCINE 2023-01-26 16:02:41 Espinoza Gonsales [facility] PATIENT FINANCIAL POLICY 2023-01-26 14:28:24 Doctor Unassigned, [place] [facility] CONSENT FOR CONTRACEPTION 2022-10-31 06:01:00 Doctor Unassigned, [place] [facility] ASSIGNMENT OF BENEFITS 2022-05-02 15:52:47 Docto r Unassigned, [place] [facility] CONSENT FOR CONTRACEPTION 2021-10-21 06:01:00 Doctor Unassigned, [place] [facility] Encounters Start Date/Time End Date/Time Encounter Type Admission Type Attending [facility] Care Facility Care Department Encounter ID Source 2021-09-06 18:53:45 Outpatient P [facility] [id number] [facility] 2021-09-06 11:21:28 Outpatient P [facility] [id number] [facility] 2021-09-06 11:20:20 Outpatient [facility] [id number] [facility] 2024-02-01 09:30:00 2024-02-01 09:30:00 Outpatient R ESPINOZA GONSALES [facility] [id number] [facility] 2024-01-19 12:45:00 2024-01-19 12:45:00 Outpatient R HANDY ARRIAGA [facility] [id number] [facility] 2024-01-01 06:45:00 2024-01-01 06:45:00 Outpatient R MEE DE LA GARZA [facility] [id number] [facility] 2023-12-25 09:00:00 2023-12-25 09:00:00 Outpatient R SILVINA GREGG [facility] [id number] [facility] 2023-09-06 12:34:00 2023-09-06 14:38:00 Emergency X TRISHA ALANIZ [facility] [id number] [facility] 2023-09-06 12:34:00 2023-09-06 14:38:00 Emergency Trisha Alaniz [facility] 1.2.840.114 350.1.13.10 4.2.7.2.686 [id number] [facility] 2023-07-24 15:00:00 2023-07-24 15:00:[address] [facility] [id number] [facility] 2023-05-29 09:00:00 2023-05-29 09:00:00 Outpatient R ESPINOZA GONSALES [facility] [id number] [facility] 2023-05-05 15:00:00 2023-05-05 15:00:00 Outpatient R ESPINOZA GONS[address] [facility] [id number] [facility] 2023-05-04 15:30:00 2023-05-04 15:30:[address] [facility] [id number] [facility] 2023-04-28 09:00:00 2023-04-28 09:00:[address] [facility] [id number] [facility] 2023-01-26 09:30:00 2023-01-26 10:08:05 Outpatient R ESPINOZA GONS[address] [facility] [id number] [facility] 2023-01-26 09:30:00 2023-01-26 10:08:05 Office Visit Espinoza Gonsales [facility] .840.114 350.1.13.10 4.2.7.2.686 [id number] 134 [id number] [facility] 2023-01-26 00:00:00 2023-01-26 00:00:00 Orders Only Doctor Unassigned, [place] [facility] .84.114 350.1.13.10 4.2.7.2.686 [id number] [id number] [facility] 2022-10-31 14:30:00 2022-10-31 14:44:24 Nurse Visit Nurse, [facility] Espinoza Gonsales [facility] BUILDING 1.840.114 350.1.13.10 4.2.7.2.686 [id number] 134 [id number] [facility] 2022-10-31 14:30:00 2022-10-31 14:30:00 [address] [facility] [id number] [facility] 2022-10-31 00:00:00 2022-10-31 00:00:00 Orders Only Doctor Unassigned, [place] [facility] 1.2.840.114 350.1.13.10 4.2.7.2.686 [id number] [facility] 2022-10-29 10:30:00 2022-10-29 10:30:00 Outpatient R DRU ESPINOZA [facility] [id number] [facility] 2022-08-05 13:00:00 2022-08-05 13:00:[address] [facility] [id number] [facility] 2022-08-04 15:00:00 2022-08-04 16:37:47 Nurse Visit Nurse, [facility] Espinoza Gonsales [facility] 1.2.840.114 350.1.13.10 4.2.7.2.686 [id number] [facility] 2022-08-04 15:00:00 2022-08-04 15:00:00 Outpatient R ESPINOZA GONS[address] [facility] [id number] [facility] 2022-07-25 10:00:00 2022-07-25 10:00:00 Outpatient R DRU ESPINOZA [facility] [id number] [facility] 2022-05-02 10:30:00 2022-05-02 11:11:21 Out[address] [facility] [id number] [facility] 2022-05-02 10:30:00 2022-05-02 11:11:21 Nurse Visit Nurse, [facility] Idalia Jain [facility] 1..840.114 350.1.13.10 4.2.7.2.686 [id number] 134 [id number] [facility] 2022-05-02 00:00:00 2022-05-02 00:00:00 Orders Only Doctor Unassigned, [place] [facility] 1.840.114 350.1.13.10 4.2.7.2.686 [id number] [facility] 2022-04-25 14:00:00 2022-04-25 14:00:[address] [facility] [id number] [facility] 2022-04-23 10:30:00 2022-04-23 10:30:[address] [facility] [id number] [facility] 2022-03-03 02:49:00 2022-03-03 02:49:00 Outpatient [facility]ISTER[facility] [id number] [place] [facility] 2022-01-21 15:00:00 2022-01-21 15:36:32 Outpatient R PINA GONS[address] [facility] [id number] [facility] 2022-01-21 15:00:00 2022-01-21 15:36:32 Nurse Visit Nurse, [facility] Pina Gonsales [facility] 1..840.114 350.1.13.10 4.2.7.2.686 [id number] 134 [id number] [facility] 2022-01-20 10:00:00 2022-01-20 10:00:[address] [facility] [id number] [facility] 2021-10-21 14:30:56 2021-10-21 15:01:51 Office Visit Idalia Jain [facility] 1..840.114 350.1.13.10 4.2.7.2.686 [id number] 134 [id number] [facility] 2021-10-21 14:30:00 2021-10-21 15:01:51 Out[address] [facility] [id number] [facility] 2021-10-21 00:00:00 2021-10-21 00:00:00 Orders Only Doctor Unassigned, [place] [facility] 1..840.114 350.1.13.10 4.2.7.2.686 [id number] [facility] 2021-07-25 14:00:00 2021-07-25 14:00:00 Outpatient R [address]U ESPINOZA [facility] [id number] [facility] 2021-07-25 13:41:25 2021-07-25 13:56:25 Nurse Visit Nurse, [facility] 1..840.114 350.1.13.10 4.2.7.2.686 [id number] 134 [id number] [facility] 2021-07-17 14:30:00 2021-07-17 14:30:[address] [facility] [id number] [facility] 2021-07-16 09:00:00 2021-07-16 09:00:[address] [facility] [id number] [facility] 2021-04-17 10:30:00 2021-04-17 10:30:[address] [facility] [id number] [facility] 2021-04-17 10:12:23 2021-04-17 10:27:27 Nurse Visit Nurse, [facility] Espinoza Gonsales [facility] 1.2.840.114 350.1.13.10 4.2.7.2.686 [id number] 134 [id number] [facility] 2021-04-17 00:00:00 2021-04-17 00:00:00 Orders Only Doctor Unassigned, [place] [facility] 1.2840.114 350.1.13.10 4.2.7.2.686 [id number] [id number] [facility] 2021-04-15 10:00:00 2021-04-15 10:00:[address] [facility] [id number] [facility] 2021-01-21 14:27:19 2021-01-21 14:51:33 Nurse Visit Nurse, [facility] Espinoza Gonsales [facility] 1..840.114 350.1.13.10 4.2.7.2.686 [id number] 134 [id number] [facility] 2021-01-21 14:30:00 2021-01-21 14:30:00 Outpatient R DRU ESPINOZA [facility] [id number] [facility] 2020-12-05 00:00:00 2020-12-05 00:00:00 Telephone Espinoza Gonsales [facility] 1..840.114 350.1.13.10 4.2.7.2.686 [id number] [facility] 2020-10-18 14:23:45 2020-10-18 15:01:18 [facility] 1.2.840.114 350.1.13.10 4.2.7.2.686 [id number] [facility] 2020-10-18 14:30:00 2020-10-18 14:30:00 Outpatient R [facility] [id number] [facility] 2020-10-18 00:00:00 2020-10-18 00:00:00 Orders Only Doctor Unassigned, [place] [facility] 1.2840.114 350.1.13.10 4.2.7.2.686 [id number] [facility] 2020-08-28 11:30:00 2020-08-28 11:30:00 Outpatient R [address] JAIN [facility] [id number] [facility] 2020-08-06 10:36:00 2020-08-09 12:53:00 Hospital Encounter Espinoza Gonsales [facility] 1.2.840.114 350.1.13.10 4.2.7.2.686 [id number] [facility] 2020-08-06 00:00:00 2020-08-06 00:00:00 Telephone Espinoza Gonsales [facility] Professio nal Building 1.2.840.114 350.1.13.10 4.2.7.2.686 [id number] [facility] 2020-08-02 16:02:54 2020-08-02 16:17:54 Laboratory Only Only, Adc Test Espinoza Gonsales [facility] 1.2.840.114 350.1.13.10 4.2.7.2.686 [id number] [facility] 2020-08-02 15:45:00 2020-08-02 15:45:[address] [facility] [id number] [facility] 2020-08-02 11:15:00 2020-08-02 11:15:[address] [facility] [id number] [facility] 2020-07-31 15:57:47 2020-07-31 16:22:49 Routine Visit Espinoza Gonsales [facility] 1.2840.114 350.1.13.10 4.2.7.2.686 [id number] [facility] 2020-07-31 15:45:00 2020-07-31 15:45:00 [facility] [id number] 2020-07-24 16:15:00 2020-07-24 16:15:00 Outpatient R [address]IA JAIN [facility] [id number] [facility] 2020-07-19 11:45:00 2020-07-19 11:45:[address] [facility] [id number] [facility] 2020-07-17 16:32:23 2020-07-17 16:47:23 [facility] 1.2.840.114 350.1.13.10 4.2.7.2.686 [id number] 134 [id number] [facility] 2020-07-17 16:15:00 2020-07-17 16:15:00 [facility] [id number] [facility] 2020-07-10 15:30:00 2020-07-10 15:30:00 Outpatient R ESPINOZA [facility]ONS[address] [facility] [id number] [facility] 2020-07-10 10:15:00 2020-07-10 10:15:[address] [facility] [id number] [facility] 2020-07-09 15:55:06 2020-07-09 17:36:35 Routine Visit Espinoza [facility] 1.2.840.114 350.1.13.10 4.2.7.2.686 [id number] 134 [id number] [facility] 2020-07-09 15:45:00 2020-07-09 15:45:00 Outpatient R [address]U ESPINOZA [facility] [id number] [facility] 2020-07-09 00:00:00 2020-07-09 00:00:00 Orders Only Doctor Unassigned, [place] [facility] 1.2.840.114 350.1.13.10 4.2.7.2.686 [id number] [facility] 2020-07-02 14:00:00 2020-07-02 14:00:00 Outpatient R ESPINOZA [facility]ONS[address] [facility] [id number] [facility] 2020-06-27 00:00:00 2020-06-27 00:00:00 Telephone Idalia Jain [facility] 1.284.114 350.1.13.10 4.2.7.2.686 [id number] [facility] 2020-06-19 00:00:00 2020-06-19 00:00:00 Letter (Out) Gonsales Espinoza Osman [facility] 1.284.114 350.1.13.10 4.2.7.2.686 [id number] 134 [id number] [facility] 2020-06-19 00:00:00 2020-06-19 00:00:00 Orders Only Doctor Unassigned, [place] [facility] 1.2.114 350.1.13.10 4.2.7.2.686 [id number] [id number] [facility] 2020-06-18 15:58:50 2020-06-18 16:39:24 Routine Visit Idalia Jain [facility] 1.284.114 350.1.13.10 4.2.7.2.686 [id number] [facility] 2020-06-18 15:45:00 2020-06-18 15:45:00 Outpatient R SUSY [facility] [id number] [facility] 2020-06-18 00:00:00 2020-06-18 00:00:00 Orders Only Doctor Unassigned, [place] [facility] 1.2.114 350.1.13.10 4.2.7.2.686 [id number] [id number] [facility] 2020-06-15 23:55:00 2020-06-16 10:40:00 Hospital Encounter Peg Ndiaye [facility] 1.2.840.114 350.1.13.10 4.2.7.2.686 [id number] [facility] 2020-06-08 00:00:00 2020-06-08 00:00:00 Telephone Idalia Jain [facility] Building 1.2.840.114 350.1.13.10 4.2.7.2.686 [id number] [facility] 2020-06-06 13:11:28 2020-06-06 14:01:53 [employer] [place] Visit Ultrasound, Hardik Bryant [facility] 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 [id number] [facility] 2020-06-04 13:17:41 2020-06-04 13:48:54 Routine Visit Espinoza Gonsales [facility] 1.2.114 350.1.13.10 4.2.7.2.686 [id number] 134 [id number] [facility] 2020-06-04 13:00:00 2020-06-04 13:00:00 Outpatient R ESPINOZA [facility] [facility] [id number] [facility] 2020-05-29 00:00:00 2020-05-29 00:00:00 Telephone Espinoza Gonsales [facility] Building 1.2840.114 350.1.13.10 4.2.7.2.686 [id number] [facility] 2020-05-25 00:00:00 2020-05-25 00:00:00 Telephone Espinoza Gonsales [facility] Building 1.2840.114 350.1.13.10 4.2.7.2.686 [id number] 134 [id number] [facility] 2020-05-24 00:00:00 2020-05-24 00:00:00 Telephone Espinoza Gonsales nal Building 1.2.840.114 350.1.13.10 4.2.7.2.686 [id number] 134 [id number] [facility] 2020-05-23 00:00:00 2020-05-23 00:00:00 Telephone Espinoza Gonsales [facility] Building 1.2.840.114 350.1.13.10 4.2.7.2.686 [id number] 134 [id number] [facility] 2020-05-09 13:23:12 2020-05-09 13:38:12 [employer] [place] Visit 2, Adc Lab Espionza Gonsales [facility] Building 1.2.840.114 350.1.13.10 4.2.7.2.686 [id number] [facility] 2020-05-09 13:00:00 2020-05-09 13:00:[address] [facility] [id number] [facility] 2020-05-07 15:01:11 2020-05-08 17:04:04 Initial Visit Espinoza Gonsales [facility] 1.2.840.114 350.1.13.10 4.2.7.2.686 [id number] 134 [id number] [facility] 2020-05-08 00:00:00 2020-05-08 00:00:00 Case Management Espinoza Gonsales [facility] Building 1.2.840.114 350.1.13.10 4.2.7.2.686 [id number] [facility] 2020-05-08 00:00:00 2020-05-08 00:00:00 Case Management Espinoza Gonsales [facility] Building 1.2.840.114 350.1.13.10 4.2.7.2.686 [id number] [facility] 2020-05-07 14:15:00 2020-05-07 14:15:00 Outpatient R ESPINOZA [facility]ONS[address]ES [facility] [id number] [facility] 2020-05-07 00:00:00 2020-05-07 00:00:00 Orders Only Doctor Unassigned, [place] [facility] 1.2.840.114 350.1.13.10 4.2.7.2.686 [id number] [facility] 2020-04-23 00:00:00 2020-04-23 00:00:00 Telephone Espinoza Gonsales [facility] Annika Moyer [facility] Building 1.2.840.114 350.1.13.10 4.2.7.2.686 [id number] [facility] 2020-04-16 11:00:00 2020-04-16 11:00:00 Outpatient R ESPINOZA [facility]ES [facility] [id number] [facility] 2018-04-11 20:58:00 2018-04-11 21:43:00 Emergency E [facility] [id number] [facility] Results Test Description Test Time Test Comments Results Resul t Comments Source XR NASAL BONES 3 VIEWS*WW* 2018-04-11 21:33:08 EXAM: Nasal bones , 3 VIEWSINDICATION: PainCOMPARISON: None availableTECHNIQUE: 3 views of the nasal bones.FINDINGS:No acute fracture or dislocation is identified. The nasal bones appear intact.No osseous lesions are identified. The orbits are intact. The paranasal sinusesare clear. The mandible is normal in appearance. The temporomandibular jointsare normal.IMPRESSION:1. No acute fracture is identified.LOCATION: B2
--- NOTE | 2024-01-19 17:37 | RAD REPORT ---
EXAM DESCRIPTION: RAD - Finger-Thumb Right - 01/19/2024 5:20 pm CLINICAL HISTORY: PAIN COMPARISON: No comparisons FINDINGS: Moderate soft tissue swelling is seen affecting the fourth finger. No fracture, dislocatio n or aggressive marrow lesion.
--- NOTE | 2024-01-19 18:09 | ER ---
Nurse's Notes [facility] Name: Vijaya Farooq Age: 23 yrs Sex: Female : 2000 Arrival Date: 01/19/2024 Time: 15:57 Bed 9 Private MD: Diagnosis: Cutaneous abscess of right upper limb-right fourth finger paronychia Presentation: 01/18 16:18 Chief complaint: Patient states: Pain to right fourth finger. Pt reports swelling, ld1 redness and pain X 2 days. Coronavirus screen: At this time, the client does not indicate any symptoms associated with coronavirus-19. Ebola Screen: No symptoms or risks identified at this time. Initial Sepsis Screen: Does the patient meet any 2 criteria? No. Patient's initial sepsis screen is negative. Does the patient have a suspected source of infection? No. Patient's initial sepsis screen is negative. Risk Assessment: Do you want to hurt yourself or someone else? Patient reports no desire to harm self or others. Onset of symptoms was January 19, 2024 at 16:19. 16:18 Method Of Arrival: Ambulatory ld1 16:18 Acuity: ROBI 4 ld1 Triage Assessment: 16:19 General: Appears in no apparent distress. comfortable, Behavior is calm, cooperative, ld1 appropriate for age. Pain: Complains of pain in dorsal aspect of distal phalanx of right ring finger and right ring fingernail Pain does not radiate. Pain currently is 8 out of 10 on a pain scale. EENT: No signs and/or symptoms were reported regarding the EENT system. Neuro: Level of Consciousness is awake, alert, obeys commands, Oriented to person, place, time, situation. Cardiovascular: Capillary refill < 3 seconds Patient's skin is warm and dry. Respiratory: Airway is patent Respiratory effort is even, unlabored. GI: Abdomen is round non-distended. : No signs and/or symptoms were reported regarding the genitourinary system. 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 - Social history:: Smoking status: Patient denies any tobacco usage or history of. Patient/guardian denies using alcohol. Screenin:53 [facility] ED Fall Risk Assessment (Adult) History of falling in the last 3 months, mb9 including since admission No falls in past 3 months (0 pts) Confusion or Disorientation No (0 pts) Intoxicated or Sedated No (0 pts) Impaired Gait No (0 pts) Mobility Assist Device Used No (0 pt) Altered Elimination No (0 pt) Score/Fall Risk Level 0 - 2 = Low Risk Oriented to surroundings, Maintained a safe environment, Educated pt \T\ family on fall prevention, incl call for assistance when getting out of bed. Abuse screen: Denies threats or abuse. Nutritional screening: No deficits noted. Tuberculosis screening: No symptoms or risk factors identified. Assessment: 16:52 General: Appears in no apparent distress. Behavior is calm, cooperative. Pain: mb9 Complains of pain in right ring fingernail Pain currently is 7 out of 10 on a pain scale. Quality of pain is described as throbbing, Pain began 2-3 days ago. Is continuous, Aggravated by increased activity, repositioning. Neuro: Guevara Agitation-Sedation Scale (RASS): 0 - Alert and Calm Level of Consciousness is awake, alert, obeys commands, Oriented to person, place, time, situation, Appropriate for age. Cardiovascular: Patient's skin is warm and dry. Respiratory: Airway is patent Respiratory effort is even, unlabored, Respiratory pattern is regular, symmetrical. GI: No signs and/or symptoms were reported involving the gastrointestinal system. : No signs and/or symptoms were reported regarding the genitourinary system. EENT: No signs and/or symptoms were reported regarding the EENT system. Derm: Skin is pink, warm \T\ dry. Musculoskeletal: Swelling present in right ring fingernail. 17:51 Reassessment: No changes from previously documented assessment. Patient and/or family mb9 updated on plan of care and expected duration. Pain level reassessed. Patient is alert, oriented x 3, equal unlabored respirations, skin warm/dry/pink. Vital Signs: 16:18 Pulse 85; Resp 18; Temp 97.8(TE); Pulse Ox 100% on R/A; Weight 64.41 kg; Height 4 ft. 9 ld1 in. ; Pain 8/10; 16:18 BP 134 / 84; ld1 18:19 BP 124 / 88; Pulse 74; Resp 18; Pulse Ox 100% on R/A; mb9 16:18 Body Mass Index 30.73 (64.41 kg, 144.78 cm) ld1 16:18 Pain Scale: Adult ld1 ED Course: 16:00 Patient arrived in ED. rg4 16:07 [facility]imo [facility]. cp 16:07 Nic Diallo MD is Attending Physician. cp 16:19 Triage completed. ld1 16:19 Arm band placed on right wrist. ld1 16:47 Tracy Prajapati RN is Primary Nurse. mb9 16:53 Placed in gown. Bed in low position. Call light in reach. Side rails up X 1. Client mb9 placed on continuous cardiac and pulse oximetry monitoring. NIBP monitoring applied. Door closed. Noise minimized. Warm blanket given. 16:53 Provided Education on: press call light if needing anything. mb9 18:20 Assist provider with I \T\ D: of an abscess on right Set up I\T\D tray. Performed by Kunal MORENO Dressing with Neosporin and 4X4s, tape Patient tolerated well. 18:21 Patient did not have IV access during this emergency room visit. mb9 Administered Medications: 16:52 Drug: Acetaminophen PO 650 mg PO once Route: PO; mb9 18:16 Follow up: Response: No adverse reaction mb9 16:52 Drug: HYDROcodone-acetaminophen PO 5 mg-325 mg 1 tabs PO once Route: PO; mb9 18:16 Follow up: Response: No adverse reaction mb9 17:52 Drug: Lidocaine Infiltration (1 %) 5 ml 5 ml Infiltration once; to bedside Volume: 5 mb9 ml; Route: Infiltration; 18:17 Follow up: Response: No adverse reaction mb9 17:52 Drug: Bupivacaine Infiltration (0.5 %) 5 ml 10 ml Infiltration once Volume: 10 ml; mb9 Route: Infiltration; 18:17 Follow up: Response: No adverse reaction mb9 18:14 Drug: Doxycycline PO 100 mg PO once Route: PO; mb9 18:17 Follow up: Response: No adverse reaction mb9 Medication: 16:53 VIS not applicable for this client. mb9 Outcome: 18:08 Discharge ordered by . rochelle 18:21 Discharged to home ambulatory, mb9 18:21 Condition: stable 18:21 Discharge instructions given to patient, Instructed on discharge instructions, follow up and referral plans. Demonstrated understanding of instructions, follow-up care, medications, Prescriptions given X 2, 18:21 Patient left the ED. mb9 Signatures: Kunal Geronimo PA PA cp Garcia, Rubi rg4 Ileana Dillard RN RN ld1 Tracy Prajapati RN RN mb9
--- NOTE | 2024-01-19 18:09 | EDPHYS ---
Physician Documentation [facility] Name: Vijaya Farooq Age: 23 yrs Sex: Female : 2000 Arrival Date: 01/19/2024 Time: 15:57 Bed 9 Private MD: ED Physician Nic Diallo HPI: 01/18 17:00 This 23 yrs old Female presents to ER via Ambulatory with complaints of Finger cp Swelling. 17:00 The patient or guardian reports pain, swelling, tenderness. The complaints affect the cp radial side and proximal nailbed of right fourth finger. Context: resulted from an unknown cause. Onset: The symptoms/episode began/occurred 2 day(s) ago. Associated signs and symptoms: Pertinent negatives: cyanosis distally, decreased sensation distally, fever. 17:00 Severity of symptoms: in the emergency department the symptoms are unchanged, despite cp home interventions. 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 - Social history:: Smoking status: Patient denies any tobacco usage or history of. Patient/guardian denies using alcohol. ROS: 17:05 Constitutional: Negative for body aches, chills, fever, poor PO intake, cp 17:05 MS/extremity: Positive for erythema, pain, swelling, tenderness, of the right fourth cp finger, Negative for injury or acute deformity, decreased range of motion, 17:05 All other systems are negative, Exam: 17:10 Constitutional: The patient appears in no acute distress, alert, awake, non-toxic, well cp developed, well nourished, uncomfortable, 17:10 Head/Face: Normocephalic, atraumatic. cp 17:10 Cardiovascular: Rate: normal, 17:10 Respiratory: the patient does not display signs of respiratory distress, Respirations: normal, no use of accessory muscles, no retractions, labored breathing, is not present, 17:10 Musculoskeletal/extremity: Extremities: grossly normal except: noted in the right fourth finger: swelling tenderness, erythema along radial side of nail extending to nail cuticle area, small abscess noted along radial side of nail, Vital Signs: 16:18 Pulse 85; Resp 18; Temp 97.8(TE); Pulse Ox 100% on R/A; Weight 64.41 kg; Height 4 ft. 9 ld1 in. ; Pain 8/10; 16:18 BP 134 / 84; ld1 18:19 BP 124 / 88; Pulse 74; Resp 18; Pulse Ox 100% on R/A; mb9 16:18 Body Mass Index 30.73 (64.41 kg, 144.78 cm) ld1 16:18 Pain Scale: Adult ld1 Procedures: 18:10 I \T\ D: Incision and drainage was performed for an abscess of the right fourth finger cp Prepped with Betadine, Anesthetized with digital block with 6 ccs mixture 1% lidocaine w/o epi and 0.5% marcaine. Incised with 18 gauge needle. Drained small amount purulent fluid. Dressing: sterile 4x4 gauze, the patient tolerated the procedure well. MDM: 16:24 Patient medically screened. 17:00 Differential diagnosis: closed fracture, contusion, abscess, felon, cellulitis. 18:07 Data reviewed: vital signs, nurses notes, radiologic studies, plain films. cp 18:07 I considered the following discharge prescriptions or medication management in the emergency department Medications were administered in the Emergency Department. See MAR. Independent interpretation of the following test(s) in the Emergency Department X-Ray: My interpretation is images of right fourth finger negative for fracture. Counseling: I had a detailed discussion with the patient and/or guardian regarding the historical points, exam findings, and any diagnostic results supporting the discharge/admit diagnosis, radiology results, to return to the emergency department if symptoms worsen or persist or if there are any questions or concerns that arise at home. Response to treatment: the patient's symptoms have markedly improved after treatment, and as a result, I will discharge patient. 01/18 16:31 Order name: XRAY Finger-Thumb RIGHT cp 01/18 17:39 Order name: RAD; Complete Time: 18:06 EDMS 01/18 18:06 Interpretation: Report reviewed. Administered Medications: 16:52 Drug: Acetaminophen PO 650 mg PO once Route: PO; [facility] 18:16 Follow up: Response: No adverse reaction [facility] 16:52 Drug: HYDROcodone-acetaminophen PO 5 mg-325 mg 1 tabs PO once Route: PO; mb9 18:16 Follow up: Response: No adverse reaction mb9 17:52 Drug: Lidocaine Infiltration (1 %) 5 ml 5 ml Infiltration once; to bedside Volume: 5 mb9 ml; Route: Infiltration; 18:17 Follow up: Response: No adverse reaction mb9 17:52 Drug: Bupivacaine Infiltration (0.5 %) 5 ml 10 ml Infiltration once Volume: 10 ml; mb9 Route: Infiltration; 18:17 Follow up: Response: No adverse reaction mb9 18:14 Drug: Doxycycline PO 100 mg PO once Route: PO; mb9 18:17 Follow up: Response: No adverse reaction mb9 Disposition Summary: 01/19/24 18:08 Discharge Ordered Notes: Location: Home cp Problem: new cp Symptoms: have improved cp Condition: Stable cp Diagnosis - Cutaneous abscess of right upper limb - right fourth finger paronychia cp Followup: cp - With: Private Physician - When: 1 - 2 days - Reason: Worsening of condition Discharge Instructions: - Discharge Summary Sheet cp - Skin Abscess cp - Incision and Drainage cp Forms: - Medication Reconciliation Form cp - Thank You Letter cp - Antibiotic Education cp - Prescription Opioid Use cp - Patient Portal Instructions cp - Leadership Thank You Letter cp - Work release form mb9 Prescriptions: - Ibuprofen 800 mg Oral Tablet - take 1 tablet ORAL route every 8 hours As needed take with food; 30 tablet; cp Refills: 0, Product Selection Permitted - Doxycycline Hyclate 100 mg Oral Tablet - take 1 tablet ORAL route every 12 hours; 20 tablet; Refills: 0, Product cp Selection Permitted Signatures: Dispatcher [employer] Kunal Jean Baptiste PA PA cp Ileana Dillard RN RN ld1 Tracy Prajapati RN RN mb9
[2024-01-19 18:52] VITALS: BP 124/88; TEMP 97.8; O2SAT 100
== END ==
LOC: ER 15:57
PROC: 0H9FXZZ Drainage of Right Hand Skin, External Approach (ICD-10-PCS; principal; 2024-01-19)
DX: L03.011 Cellulitis of right finger (principal)
CPT/HCPCS: J2001

== ENCOUNTER 2024-02-12 00:19 | Emergency (ER) | payer SELFPAY ==
--- OUTSIDE RECORDS SUMMARY | 2024-02-12 00:26 | XMS REPORT | Continuity of Care Document ---
Author Name Unknown Address [address] [place] [address] [facility] Address [address] [place] [address] Care Team Providers Care Alpine Guide Name Role Phone PCP, PATIENT DOES NOT HAVE A Primary Care Physic kate Unavailable ESPINOZA GONSALES Attending Clinician Unavailable HADNY ARRIAGA Attending Clinician Unavail able MEE DE LA GARZA Attending Clinician Unavail able CAITLYN DE LA VEGA Attending Clinician Unavailab SILVINA Adkins Attending Clinician Unavaila TRISHA Polo Attending Clinician Unavailable Alaniz PACTwanya S Attending Clinician [phone] Espinoza Gonsales MD Attending Clinician [phone] Doctor Unassigned, [place] Attending Clinician U navailable Nurse, [facility] Attending Clinician Un available IDALIA JAIN Attending Clinician Unavailable Idalia Jain PA-C Attending Clinician [phone] NOVA Attending Clinician Unavailable PINA GONSALES Attending Clinician Unavailable Dru PIPELINE ENGINEERPina Hooks Attending Clinician [phone] Only, Adc Test Attending Clinician Unavailable Peg Ndiaye MD Attending Clinician [phone] Ultrasound, Ang-Mfm Attending Clinician UnavailHardik Solomon MD Attending Clinician [phone], [facility] Attending Clinician Unavailable DR PEG MORRIS Attending Clinician Unavailable ESPINOZA GONSALES Admitting Clinician Unavailable PEG NDIAYE Admitting Clinician Unavailwayne BHATT Admitting Clinician Unavailable Espinoza Gonsales MD Admitting Clinician Peg Ndiaye MD Admitting Clinician [phone] DR PEG MORRIS Admitting Clinician Unavailable Payers Payer Name Policy Type Policy Number Effective Date Expirati on Date Source [facility] JENNIFER SANCHEZ [id number] 2020 00:00:00 [facility] [place] [facility] [id number] 2024 00:00:00 Problems Condition Name Condition Details Condition Category Status Onset Date Resolution Date Last Treatment Date Treating Clinician Comments Source No known active problems No known active problems Disease [facility] Allergies, Adverse Reactions, Alerts Allergy Name Allergy Type Status Severity Reaction(s) Onset Date Inactive Date Treating Clinician Comments Source NO KNOWN ALLERGIE S Drug Class Active [facility] Social History Social Habit Start Date Stop Date Quantity Comments Source Sexual orientation [facility] History SDOH Alcohol Std Drinks [facility] History SDOH Alcohol Binge [facility] History SDOH Alcohol Comment [place] Alcohol intake 2023-09-06 00:00:00 2023-09-06 00:00:00 Lifetime non-drinker (finding) [facility] Exposure to SARS-CoV-2 (event) 2023-01-16 00:00:00 2023-01-26 09:25:00 Not sure [facility] Tobacco use and exposure 2022-08-04 00:00:00 2022-08-04 00:00:00 Smokeless tobacco non-user [facility] History of Social function 2021-10-21 00:00:00 2021-10-21 00:00:00 [facility] History SDOH Alcohol Frequency 2020-05-07 00:00:00 2020-05-07 00:00:00 1 [facility] Sex Assigned At 2002 00:00:00 2000 00:00:00 [facility] Smoking Status Start Date Stop Date Source Never smoked tobacco [facility] Medications Ordered Medication Name Filled Medication Name Start Date Stop Date Current Medication? Ordering Clinician Indication Dosage Frequency Signature (SIG) Comments Components Source oseltamivir (TAMIFLU) 75 mg capsule 2022-11 00:00: 00 Yes [id number] 75mg Take 1 capsule by mouth in the morning and 1 capsule in the evening. [facility] medroxyPROG ESTERone (DEPO-PROVE RA) syringe 150 mg 01-26 17:00: 00 01-26 16:03 :00 No [id number] [facility] medroxyPROG ESTERone (DEPO-PROVE RA) syringe 150 mg 2021-11- 21:30: 00 10-31 20:44 :00 No [id number] [facility] (DEPO-PROVE RA) syringe 150 mg 05-02 17:15: 05-02 16:17 :00 No [id number] 150[facility] medroxyPROG ESTERone (DEPO-PROVE RA) syringe 150 mg 01-21 21:45: 00 01-21 20:37 :00 No [id number] 150mg [facility] s [facility] medroxyPROG ESTERone (DEPO-PROVE RA) syringe 150 mg 2020-11 21:45: 00 10-21 20:59 :00 No [id number] 150mg [facility] vitamin w/FA tablet 2019-11 00:00: 00 01-26 00:00 :00 No [id number] 1{tbl} Take 1 tablet by mouth daily. [facility] docusate calcium 240 mg capsule 2019-11 00:00: 00 01-26 00:00 :00 No [id number] 240mg Take 1 capsule by mouth once daily as needed for Constipati on. [facility] ferrous sulfate 325 mg (65 mg iron) tablet 2019-11:00: 01-26 00:00 :00 No [id number] 325mg Take 1 tablet by mouth 2 (two) times daily. [facility] ibuprofen 600 mg tablet 2019-11 00:00: 01-26 00:00 :00 No [id number] 600mg Take 1 tablet by mouth every 6 (six) hours as needed (Pain). Take with food or milk. [facility] Immunizations Ordered Immunization Name Filled Immunization Name Date Status Comments Source HPV9 2023-01-26 00:00:00 Completed [facility] HPV9 2023-01-26 00:00:00 Completed [facility] TDAP 2020-06-04 00:00:00 Completed [facility] TDAP 2020-06-04 00:00:00 Completed [facility] TDAP 2020-06-04 00:00:00 Completed [facility] TDAP 2020-06-04 00:00:00 Completed [facility] TDAP 2020-06-04 00:00:00 Completed [facility] TDAP 2020-06-04 00:00:00 Completed [facility] TDAP 2020-06-04 00:00:00 Completed [facility] TDAP 2020-06-04 00:00:00 Completed [facility] TDAP 2020-06-04 00:00:00 Completed [facility] TDAP 2020-06-04 00:00:00 Completed [facility] TDAP 2020-06-04 00:00:00 Completed [facility] TDAP 2020-06-04 00:00:00 Completed [facility] TDAP 2020-06-04 00:00:00 Completed [facility] TDAP 2018-02-26 00:00:00 Completed [facility] TDAP 2018-02-26 00:00:00 Completed [facility] TDAP 2018-02-26 00:00:00 Completed [facility] TDAP 2018-02-26 00:00:00 Completed [facility] TDAP 2018-02-26 00:00:00 Completed [facility] TDAP 2018-02-26 00:00:00 Completed [facility] TDAP 2018-02-26 00:00:00 Completed [facility] TDAP 2018-02-26 00:00:00 Completed [facility] TDAP 2018-02-26 00:00:00 Completed [facility] TDAP 2018-02-26 00:00:00 Completed [facility] TDAP 2018-02-26 00:00:00 Completed [facility] TDAP 2018-02-26 00:00:00 Completed [facility] TDAP 2018-02-26 00:00:00 Completed [facility] HPV 2015-05-03 00:00:00 Completed [facility] Meningococcal Polysaccharide (groups A, C, Y and W-135) conjugate vaccine (MCV4P) 2015-05-03 00:00:00 Completed [facility] TDAP 2015-05-03 00:00:00 Completed [facility] HPV 2015-05-03 00:00:00 Completed [facility] Meningococcal Polysaccharide (groups A, C, Y and W-135) conjugate vaccine (MCV4P) 2015-05-03 00:00:00 Completed [facility] TDAP 2015-05-03 00:00:00 Completed [facility] HPV 2015-05-03 00:00:00 Completed [facility] Meningococcal Polysaccharide (groups A, C, Y and W-135) conjugate vaccine (MCV4P) 2015-05-03 00:00:00 Completed [facility] TDAP 2015-05-03 00:00:00 Completed [facility] HPV 2015-05-03 00:00:00 Completed [facility] Meningococcal Polysaccharide (groups A, C, Y and W-135) conjugate vaccine (MCV4P) 2015-05-03 00:00:00 Completed [facility] TDAP 2015-05-03 00:00:00 Completed [facility] HPV 2015-05-03 00:00:00 Completed [facility] Meningococcal Polysaccharide (groups A, C, Y and W-135) conjugate vaccine (MCV4P) 2015-05-03 00:00:00 Completed [facility] TDAP 2015-05-03 00:00:00 Completed [facility] HPV 2015-05-03 00:00:00 Completed [facility] Meningococcal Polysaccharide (groups A, C, Y and W-135) conjugate vaccine (MCV4P) 2015-05-03 00:00:00 Completed [facility] TDAP 2015-05-03 00:00:00 Completed [facility] HPV 2015-05-03 00:00:00 Completed [facility] Meningococcal Polysaccharide (groups A, C, Y and W-135) conjugate vaccine (MCV4P) 2015-05-03 00:00:00 Completed [facility] TDAP 2015-05-03 00:00:00 Completed [facility] HPV 2015-05-03 00:00:00 Completed [facility] Meningococcal Polysaccharide (groups A, C, Y and W-135) conjugate vaccine (MCV4P) 2015-05-03 00:00:00 Completed [facility] TDAP 2015-05-03 00:00:00 Completed [facility] HPV 2015-05-03 00:00:00 Completed [facility] Meningococcal Polysaccharide (groups A, C, Y and W-135) conjugate vaccine (MCV4P) 2015-05-03 00:00:00 Completed [facility] TDAP 2015-05-03 00:00:00 Completed [facility] HPV 2015-05-03 00:00:00 Completed [facility] Meningococcal Polysaccharide (groups A, C, Y and W-135) conjugate vaccine (MCV4P) 2015-05-03 00:00:00 Completed [facility] TDAP 2015-05-03 00:00:00 Completed [facility] HPV 2015-05-03 00:00:00 Completed [facility] Meningococcal Polysaccharide (groups A, C, Y and W-135) conjugate vaccine (MCV4P) 2015-05-03 00:00:00 Completed [facility] TDAP 2015-05-03 00:00:00 Completed [facility] HPV 2015-05-03 00:00:00 Completed [facility] Meningococcal Polysaccharide (groups A, C, Y and W-135) conjugate vaccine (MCV4P) 2015-05-03 00:00:00 Completed [facility] TDAP 2015-05-03 00:00:00 Completed [facility] HPV 2015-05-03 00:00:00 Completed [facility] Meningococcal Polysaccharide (groups A, C, Y and W-135) conjugate vaccine (MCV4P) 2015-05-03 00:00:00 Completed [facility] TDAP 2015-05-03 00:00:00 Completed [facility] HEPATITIS A 2008-03-29 00:00:00 Completed [facility] HEPATITIS A 2008-03-29 00:00:00 Completed [facility] HEPATITIS A 2008-03-29 00:00:00 Completed [facility] HEPATITIS A 2008-03-29 00:00:00 Completed [facility] HEPATITIS A 2008-03-29 00:00:00 Completed [facility] HEPATITIS A 2008-03-29 00:00:00 Completed [facility] HEPATITIS A 2008-03-29 00:00:00 Completed [facility] HEPATITIS A 2008-03-29 00:00:00 Completed [facility] HEPATITIS A 2008-03-29 00:00:00 Completed [facility] HEPATITIS A 2008-03-29 00:00:00 Completed [facility] HEPATITIS A 2008-03-29 00:00:00 Completed [facility] HEPATITIS A 2008-03-29 00:00:00 Completed [facility] HEPATITIS A 2008-03-29 00:00:00 Completed [facility] Polio (IPV/OPV) 2007-06-09 00:00:00 Completed [facility] Proquad (MMR/VARICELLA) 2007-06-09 00:00:00 Completed [facility] DTAP 2007-06-09 00:00:00 Completed [facility] HEPATITIS A 2007-06-09 00:00:00 Completed [facility] Polio (IPV/OPV) 2007-06-09 00:00:00 Completed [facility] Proquad (MMR/VARICELLA) 2007-06-09 00:00:00 Completed [facility] DTAP 2007-06-09 00:00:00 Completed [facility] HEPATITIS A 2007-06-09 00:00:00 Completed [facility] Polio (IPV/OPV) 2007-06-09 00:00:00 Completed [facility] Proquad (MMR/VARICELLA) 2007-06-09 00:00:00 Completed [facility] DTAP 2007-06-09 00:00:00 Completed [facility] HEPATITIS A 2007-06-09 00:00:00 Completed [facility] Polio (IPV/OPV) 2007-06-09 00:00:00 Completed [facility] Proquad (MMR/VARICELLA) 2007-06-09 00:00:00 Completed [facility] DTAP 2007-06-09 00:00:00 Completed [facility] HEPATITIS A 2007-06-09 00:00:00 Completed [facility] Polio (IPV/OPV) 2007-06-09 00:00:00 Completed [facility] Proquad (MMR/VARICELLA) 2007-06-09 00:00:00 Completed [facility] DTAP 2007-06-09 00:00:00 Completed [facility] HEPATITIS A 2007-06-09 00:00:00 Completed [facility] Polio (IPV/OPV) 2007-06-09 00:00:00 Completed [facility] Proquad (MMR/VARICELLA) 2007-06-09 00:00:00 Completed [facility] DTAP 2007-06-09 00:00:00 Completed [facility] HEPATITIS A 2007-06-09 00:00:00 Completed [facility] Polio (IPV/OPV) 2007-06-09 00:00:00 Completed [facility] Proquad (MMR/VARICELLA) 2007-06-09 00:00:00 Completed [facility] DTAP 2007-06-09 00:00:00 Completed [facility] HEPATITIS A 2007-06-09 00:00:00 Completed [facility] Polio (IPV/OPV) 2007-06-09 00:00:00 Completed [facility] Proquad (MMR/VARICELLA) 2007-06-09 00:00:00 Completed [facility] DTAP 2007-06-09 00:00:00 Completed [facility] HEPATITIS A 2007-06-09 00:00:00 Completed [facility] Polio (IPV/OPV) 2007-06-09 00:00:00 Completed [facility] Proquad (MMR/VARICELLA) 2007-06-09 00:00:00 Completed [facility] DTAP 2007-06-09 00:00:00 Completed [facility] HEPATITIS A 2007-06-09 00:00:00 Completed [facility] Polio (IPV/OPV) 2007-06-09 00:00:00 Completed [facility] Proquad (MMR/VARICELLA) 2007-06-09 00:00:00 Completed [facility] DTAP 2007-06-09 00:00:00 Completed [facility] HEPATITIS A 2007-06-09 00:00:00 Completed [facility] Polio (IPV/OPV) 2007-06-09 00:00:00 Completed [facility] Proquad (MMR/VARICELLA) 2007-06-09 00:00:00 Completed [facility] DTAP 2007-06-09 00:00:00 Completed [facility] HEPATITIS A 2007-06-09 00:00:00 Completed [facility] Polio (IPV/OPV) 2007-06-09 00:00:00 Completed [facility] Proquad (MMR/VARICELLA) 2007-06-09 00:00:00 Completed [facility] DTAP 2007-06-09 00:00:00 Completed [facility] HEPATITIS A 2007-06-09 00:00:00 Completed [facility] Polio (IPV/OPV) 2007-06-09 00:00:00 Completed [facility] Proquad (MMR/VARICELLA) 2007-06-09 00:00:00 Completed [facility] DTAP 2007-06-09 00:00:00 Completed [facility] HEPATITIS A 2007-06-09 00:00:00 Completed [facility] MMR 2004-08-26 00:00:00 Completed [facility] Varicella (varivax)(chicken pox) 2004-08-26 00:00:00 Completed [facility] Pneumococcal 7 Conjugate, PCV7 (Prevnar7) 2004-08-26 00:00:00 Completed [facility] MMR 2004-08-26 00:00:00 Completed [facility] Varicella (varivax)(chicken pox) 2004-08-26 00:00:00 Completed [facility] Pneumococcal 7 Conjugate, PCV7 (Prevnar7) 2004-08-26 00:00:00 Completed [facility] MMR 2004-08-26 00:00:00 Completed [facility] Varicella (varivax)(chicken pox) 2004-08-26 00:00:00 Completed [facility] Pneumococcal 7 Conjugate, PCV7 (Prevnar7) 2004-08-26 00:00:00 Completed [facility] MMR 2004-08-26 00:00:00 Completed [facility] Varicella (varivax)(chicken pox) 2004-08-26 00:00:00 Completed [facility] Pneumococcal 7 Conjugate, PCV7 (Prevnar7) 2004-08-26 00:00:00 Completed [facility] MMR 2004-08-26 00:00:00 Completed [facility] Varicella (varivax)(chicken pox) 2004-08-26 00:00:00 Completed [facility] Pneumococcal 7 Conjugate, PCV7 (Prevnar7) 2004-08-26 00:00:00 Completed [facility] MMR 2004-08-26 00:00:00 Completed [facility] Varicella (varivax)(chicken pox) 2004-08-26 00:00:00 Completed [facility] Pneumococcal 7 Conjugate, PCV7 (Prevnar7) 2004-08-26 00:00:00 Completed [facility] 2004-08-26 00:00:00 Completed [facility] Varicella (varivax)(chicken pox) 2004-08-26 00:00:00 Completed [facility] Pneumococcal 7 Conjugate, PCV7 (Prevnar7) 2004-08-26 00:00:00 Completed [facility] MMR 2004-08-26 00:00:00 Completed [facility] Varicella (varivax)(chicken pox) 2004-08-26 00:00:00 Completed [facility] Pneumococcal 7 Conjugate, PCV7 (Prevnar7) 2004-08-26 00:00:00 Completed [facility] MMR 2004-08-26 00:00:00 Completed [facility] Varicella (varivax)(chicken pox) 2004-08-26 00:00:00 Completed [facility] Pneumococcal 7 Conjugate, PCV7 (Prevnar7) 2004-08-26 00:00:00 Completed [facility] MMR 2004-08-26 00:00:00 Completed [facility] Varicella (varivax)(chicken pox) 2004-08-26 00:00:00 Completed [facility] Pneumococcal 7 Conjugate, PCV7 (Prevnar7) 2004-08-26 00:00:00 Completed [facility] MMR 2004-08-26 00:00:00 Completed [facility] Varicella (varivax)(chicken pox) 2004-08-26 00:00:00 Completed [facility] Pneumococcal 7 Conjugate, PCV7 (Prevnar7) 2004-08-26 00:00:00 Completed [facility] MMR 2004-08-26 00:00:00 Completed [facility] Varicella (varivax)(chicken pox) 2004-08-26 00:00:00 Completed [facility] Pneumococcal 7 Conjugate, PCV7 (Prevnar7) 2004-08-26 00:00:00 Completed [facility] MMR 2004-08-26 00:00:00 Completed [facility] Varicella (varivax)(chicken pox) 2004-08-26 00:00:00 Completed [facility] Pneumococcal 7 Conjugate, PCV7 (Prevnar7) 2004-08-26 00:00:00 Completed [facility] DTAP 2004-07-18 00:00:00 Completed [facility] HIB 4 Dose Schedule 2004-07-18 00:00:00 Completed [facility] DTAP 2004-07-18 00:00:00 Completed [facility] HIB 4 Dose Schedule 2004-07-18 00:00:00 Completed [facility] DTAP 2004-07-18 00:00:00 Completed [facility] HIB 4 Dose Schedule 2004-07-18 00:00:00 Completed [facility] DTAP 2004-07-18 00:00:00 Completed [facility] HIB 4 Dose Schedule 2004-07-18 00:00:00 Completed [facility] DTAP 2004-07-18 00:00:00 Completed [facility] HIB 4 Dose Schedule 2004-07-18 00:00:00 Completed [facility] DTAP 2004-07-18 00:00:00 Completed [facility] HIB 4 Dose Schedule 2004-07-18 00:00:00 Completed [facility] DTAP 2004-07-18 00:00:00 Completed [facility] HIB 4 Dose Schedule 2004-07-18 00:00:00 Completed [facility] DTAP 2004-07-18 00:00:00 Completed [facility] HIB 4 Dose Schedule 2004-07-18 00:00:00 Completed [facility] DTAP 2004-07-18 00:00:00 Completed [facility] HIB 4 Dose Schedule 2004-07-18 00:00:00 Completed [facility] DTAP 2004-07-18 00:00:00 Completed [facility] HIB 4 Dose Schedule 2004-07-18 00:00:00 Completed [facility] DTAP 2004-07-18 00:00:00 Completed [facility] HIB 4 Dose Schedule 2004-07-18 00:00:00 Completed [facility] DTAP 2004-07-18 00:00:00 Completed [facility] HIB 4 Dose Schedule 2004-07-18 00:00:00 Completed [facility] DTAP 2004-07-18 00:00:00 Completed [facility] HIB 4 Dose Schedule 2004-07-18 00:00:00 Completed [facility] Hep B, Adol or Pedi Dosage 2003-07-02 00:00:00 Completed [facility] Polio (IPV/OPV) 2003-07-02 00:00:00 Completed [facility] DTAP 2003-07-02 00:00:00 Completed [facility] HIB 4 Dose Schedule 2003-07-02 00:00:00 Completed [facility] Hep B, Adol or Pedi Dosage 2003-07-02 00:00:00 Completed [facility] Polio (IPV/OPV) 2003-07-02 00:00:00 Completed [facility] DTAP 2003-07-02 00:00:00 Completed [facility] HIB 4 Dose Schedule 2003-07-02 00:00:00 Completed [facility] Hep B, Adol or Pedi Dosage 2003-07-02 00:00:00 Completed [facility] Polio (IPV/OPV) 2003-07-02 00:00:00 Completed [facility] DTAP 2003-07-02 00:00:00 Completed [facility] HIB 4 Dose Schedule 2003-07-02 00:00:00 Completed [facility] Hep B, Adol or Pedi Dosage 2003-07-02 00:00:00 Completed [facility] Polio (IPV/OPV) 2003-07-02 00:00:00 Completed [facility] DTAP 2003-07-02 00:00:00 Completed [facility] HIB 4 Dose Schedule 2003-07-02 00:00:00 Completed [facility] Hep B, Adol or Pedi Dosage 2003-07-02 00:00:00 Completed [facility] Polio (IPV/OPV) 2003-07-02 00:00:00 Completed [facility] DTAP 2003-07-02 00:00:00 Completed [facility] HIB 4 Dose Schedule 2003-07-02 00:00:00 Completed [facility] Hep B, Adol or Pedi Dosage 2003-07-02 00:00:00 Completed [facility] Polio (IPV/OPV) 2003-07-02 00:00:00 Completed [facility] DTAP 2003-07-02 00:00:00 Completed [facility] HIB 4 Dose Schedule 2003-07-02 00:00:00 Completed [facility] Hep B, Adol or Pedi Dosage 2003-07-02 00:00:00 Completed [facility] Polio (IPV/OPV) 2003-07-02 00:00:00 Completed [facility] DTAP 2003-07-02 00:00:00 Completed [facility] HIB 4 Dose Schedule 2003-07-02 00:00:00 Completed [facility] Hep B, Adol or Pedi Dosage 2003-07-02 00:00:00 Completed [facility] Polio (IPV/OPV) 2003-07-02 00:00:00 Completed [facility] DTAP 2003-07-02 00:00:00 Completed [facility] HIB 4 Dose Schedule 2003-07-02 00:00:00 Completed [facility] Hep B, Adol or Pedi Dosage 2003-07-02 00:00:00 Completed [facility] Polio (IPV/OPV) 2003-07-02 00:00:00 Completed [facility] DTAP 2003-07-02 00:00:00 Completed [facility] HIB 4 Dose Schedule 2003-07-02 00:00:00 Completed [facility] Hep B, Adol or Pedi Dosage 2003-07-02 00:00:00 Completed [facility] Polio (IPV/OPV) 2003-07-02 00:00:00 Completed [facility] DTAP 2003-07-02 00:00:00 Completed [facility] HIB 4 Dose Schedule 2003-07-02 00:00:00 Completed [facility] Hep B, Adol or Pedi Dosage 2003-07-02 00:00:00 Completed [facility] Polio (IPV/OPV) 2003-07-02 00:00:00 Completed [facility] DTAP 2003-07-02 00:00:00 Completed [facility] HIB 4 Dose Schedule 2003-07-02 00:00:00 Completed [facility] Hep B, Adol or Pedi Dosage 2003-07-02 00:00:00 Completed [facility] Polio (IPV/OPV) 2003-07-02 00:00:00 Completed [facility] DTAP 2003-07-02 00:00:00 Completed [facility] HIB 4 Dose Schedule 2003-07-02 00:00:00 Completed [facility] Hep B, Adol or Pedi Dosage 2003-07-02 00:00:00 Completed [facility] Polio (IPV/OPV) 2003-07-02 00:00:00 Completed [facility] DTAP 2003-07-02 00:00:00 Completed [facility] HIB 4 Dose Schedule 2003-07-02 00:00:00 Completed [facility] Polio (IPV/OPV) 2003-05-01 00:00:00 Completed [facility] DTAP 2003-05-01 00:00:00 Completed [facility] HIB 4 Dose Schedule 2003-05-01 00:00:00 Completed [facility] Polio (IPV/OPV) 2003-05-01 00:00:00 Completed [facility] DTAP 2003-05-01 00:00:00 Completed [facility] HIB 4 Dose Schedule 2003-05-01 00:00:00 Completed [facility] Polio (IPV/OPV) 2003-05-01 00:00:00 Completed [facility] DTAP 2003-05-01 00:00:00 Completed [facility] HIB 4 Dose Schedule 2003-05-01 00:00:00 Completed [facility] Polio (IPV/OPV) 2003-05-01 00:00:00 Completed [facility] DTAP 2003-05-01 00:00:00 Completed [facility] HIB 4 Dose Schedule 2003-05-01 00:00:00 Completed [facility] Polio (IPV/OPV) 2003-05-01 00:00:00 Completed [facility] DTAP 2003-05-01 00:00:00 Completed [facility] HIB 4 Dose Schedule 2003-05-01 00:00:00 Completed [facility] Polio (IPV/OPV) 2003-05-01 00:00:00 Completed [facility] DTAP 2003-05-01 00:00:00 Completed [facility] HIB 4 Dose Schedule 2003-05-01 00:00:00 Completed [facility] Polio (IPV/OPV) 2003-05-01 00:00:00 Completed [facility] DTAP 2003-05-01 00:00:00 Completed [facility] HIB 4 Dose Schedule 2003-05-01 00:00:00 Completed [facility] Polio (IPV/OPV) 2003-05-01 00:00:00 Completed [facility] DTAP 2003-05-01 00:00:00 Completed [facility] HIB 4 Dose Schedule 2003-05-01 00:00:00 Completed [facility] Polio (IPV/OPV) 2003-05-01 00:00:00 Completed [facility] DTAP 2003-05-01 00:00:00 Completed [facility] HIB 4 Dose Schedule 2003-05-01 00:00:00 Completed [facility] Polio (IPV/OPV) 2003-05-01 00:00:00 Completed [facility] DTAP 2003-05-01 00:00:00 Completed [facility] HIB 4 Dose Schedule 2003-05-01 00:00:00 Completed [facility] Polio (IPV/OPV) 2003-05-01 00:00:00 Completed [facility] DTAP 2003-05-01 00:00:00 Completed [facility] HIB 4 Dose Schedule 2003-05-01 00:00:00 Completed [facility] Polio (IPV/OPV) 2003-05-01 00:00:00 Completed [facility] DTAP 2003-05-01 00:00:00 Completed [facility] HIB 4 Dose Schedule 2003-05-01 00:00:00 Completed [facility] Polio (IPV/OPV) 2003-05-01 00:00:00 Completed [facility] DTAP 2003-05-01 00:00:00 Completed [facility] HIB 4 Dose Schedule 2003-05-01 00:00:00 Completed [facility] Hep B, Adol or Pedi Dosage 2003-02-27 00:00:00 Completed [facility] Polio (IPV/OPV) 2003-02-27 00:00:00 Completed [facility] DTAP 2003-02-27 00:00:00 Completed [facility] HIB 4 Dose Schedule 2003-02-27 00:00:00 Completed [facility] Hep B, Adol or Pedi Dosage 2003-02-27 00:00:00 Completed [facility] Polio (IPV/OPV) 2003-02-27 00:00:00 Completed [facility] DTAP 2003-02-27 00:00:00 Completed [facility] HIB 4 Dose Schedule 2003-02-27 00:00:00 Completed [facility] Hep B, Adol or Pedi Dosage 2003-02-27 00:00:00 Completed [facility] Polio (IPV/OPV) 2003-02-27 00:00:00 Completed [facility] DTAP 2003-02-27 00:00:00 Completed [facility] HIB 4 Dose Schedule 2003-02-27 00:00:00 Completed [facility] Hep B, Adol or Pedi Dosage 2003-02-27 00:00:00 Completed [facility] Polio (IPV/OPV) 2003-02-27 00:00:00 Completed [facility] DTAP 2003-02-27 00:00:00 Completed [facility] HIB 4 Dose Schedule 2003-02-27 00:00:00 Completed [facility] Hep B, Adol or Pedi Dosage 2003-02-27 00:00:00 Completed [facility] Polio (IPV/OPV) 2003-02-27 00:00:00 Completed [facility] DTAP 2003-02-27 00:00:00 Completed [facility] HIB 4 Dose Schedule 2003-02-27 00:00:00 Completed [facility] Hep B, Adol or Pedi Dosage 2003-02-27 00:00:00 Completed [facility] Polio (IPV/OPV) 2003-02-27 00:00:00 Completed [facility] DTAP 2003-02-27 00:00:00 Completed [facility] HIB 4 Dose Schedule 2003-02-27 00:00:00 Completed [facility] Hep B, Adol or Pedi Dosage 2003-02-27 00:00:00 Completed [facility] Polio (IPV/OPV) 2003-02-27 00:00:00 Completed [facility] DTAP 2003-02-27 00:00:00 Completed [facility] HIB 4 Dose Schedule 2003-02-27 00:00:00 Completed [facility] Hep B, Adol or Pedi Dosage 2003-02-27 00:00:00 Completed [facility] Polio (IPV/OPV) 2003-02-27 00:00:00 Completed [facility] DTAP 2003-02-27 00:00:00 Completed [facility] HIB 4 Dose Schedule 2003-02-27 00:00:00 Completed [facility] Hep B, Adol or Pedi Dosage 2003-02-27 00:00:00 Completed [facility] Polio (IPV/OPV) 2003-02-27 00:00:00 Completed [facility] DTAP 2003-02-27 00:00:00 Completed [facility] HIB 4 Dose Schedule 2003-02-27 00:00:00 Completed [facility] Hep B, Adol or Pedi Dosage 2003-02-27 00:00:00 Completed [facility] Polio (IPV/OPV) 2003-02-27 00:00:00 Completed [facility] DTAP 2003-02-27 00:00:00 Completed [facility] HIB 4 Dose Schedule 2003-02-27 00:00:00 Completed [facility] Hep B, Adol or Pedi Dosage 2003-02-27 00:00:00 Completed [facility] Polio (IPV/OPV) 2003-02-27 00:00:00 Completed [facility] DTAP 2003-02-27 00:00:00 Completed [facility] HIB 4 Dose Schedule 2003-02-27 00:00:00 Completed [facility] Hep B, Adol or Pedi Dosage 2003-02-27 00:00:00 Completed [facility] Polio (IPV/OPV) 2003-02-27 00:00:00 Completed [facility] DTAP 2003-02-27 00:00:00 Completed [facility] HIB 4 Dose Schedule 2003-02-27 00:00:00 Completed [facility] Hep B, Adol or Pedi Dosage 2003-02-27 00:00:00 Completed [facility] Polio (IPV/OPV) 2003-02-27 00:00:00 Completed [facility] DTAP 2003-02-27 00:00:00 Completed [facility] HIB 4 Dose Schedule 2003-02-27 00:00:00 Completed [facility] Hep B, Adol or Pedi Dosage 2002 00:00:00 Completed [facility] Hep B, Adol or Pedi Dosage 2002 00:00:00 Completed [facility] Hep B, Adol or Pedi Dosage 2002 00:00:00 Completed [facility] Hep B, Adol or Pedi Dosage 2002 00:00:00 Completed [facility] Hep B, Adol or Pedi Dosage 2002 00:00:00 Completed [facility] Hep B, Adol or Pedi Dosage 2002 00:00:00 Completed [facility] Hep B, Adol or Pedi Dosage 2002 00:00:00 Completed [facility] Hep B, Adol or Pedi Dosage 2002 00:00:00 Completed [facility] Hep B, Adol or Pedi Dosage 2002 00:00:00 Completed [facility] Hep B, Adol or Pedi Dosage 2002 00:00:00 Completed [facility] Hep B, Adol or Pedi Dosage 2002 00:00:00 Completed [facility] Hep B, Adol or Pedi Dosage 2002 00:00:00 Completed [facility] Hep B, Adol or Pedi Dosage 2002 00:00:00 Completed [facility] TDAP Unknown Completed [facility] DTAP Unknown Completed [facility] DTAP Unknown Completed [facility] DTAP Unknown Completed [facility] DTAP Unknown Completed [facility] DTAP Unknown Completed [facility] HIB 4 Dose Schedule Unknown Completed [facility] HIB 4 Dose Schedule Unknown Completed [facility] HIB 4 Dose Schedule Unknown Completed [facility] HIB 4 Dose Schedule Unknown Completed [facility] HEPATITIS A Unknown Completed [facility] HEPATITIS A Unknown Completed [facility] Hep B, Adol or Pedi Dosage Unknown Completed [facility] Hep B, Adol or Pedi Dosage Unknown Completed [facility] Hep B, Adol or Pedi Dosage Unknown Completed [facility] HPV Unknown Completed [facility] Meningococcal Polysaccharide (groups A, C, Y and W-135) conjugate vaccine (MCV4P) Unknown Completed [facility] MMR Unknown Completed [facility] Polio (IPV/OPV) Unknown Completed [facility] Polio (IPV/OPV) Unknown Completed [facility] Polio (IPV/OPV) Unknown Completed [facility] Polio (IPV/OPV) Unknown Completed [facility] Proquad (MMR/VARICELLA) Unknown Completed [facility] TDAP Unknown Completed [facility] TDAP Unknown Completed [facility] Varicella (varivax)(chicken pox) Unknown Completed [facility] Pneumococcal 7 Conjugate, PCV7 (Prevnar7) Unknown Completed [facility] HPV9 Unknown Completed [facility] Vital Signs Vital Name Observation Time Observation Value Comments S ource Systolic blood pressure 2023-09-06 19:35:00 112 mm[Hg] [facility] Diastolic blood pressure 2023-09-06 19:35:00 75 mm[Hg] [facility] Heart rate 2023-09-06 19:35:00 110 /min [facility] Body temperature 2023-09-06 19:35:00 37.56 Chari [facility] Respiratory rate 2023-09-06 19:35:00 14 /min [facility] Oxygen saturation in Arterial blood by Pulse oximetry 2023-09-06 19:35:00 99 /min [facility] Body height 2023-09-06 17:32:00 147.3 cm [facility] Body weight 2023-09-06 17:32:00 67.132 kg [facility] BMI 2023-09-06 17:32:00 30.93 kg/m2 [facility] Systolic blood pressure 2023-01-26 14:43:00 101 mm[Hg] [facility] Diastolic blood pressure 2023-01-26 14:43:00 60 mm[Hg] [facility] Heart rate 2023-01-26 14:43:00 71 /min [facility] Body temperature 2023-01-26 14:43:00 36.44 Chari [facility] Respiratory rate 2023-01-26 14:43:00 18 /min [facility] Body height 2023-01-26 14:43:00 121.9 cm [facility] Body weight 2023-01-26 14:43:00 65.137 kg [facility] BMI 2023-01-26 14:43:00 43.82 kg/m2 [facility] Systolic blood pressure 2022-10-31 20:42:00 106 mm[Hg] [facility] Diastolic blood pressure 2022-10-31 20:42:00 74 mm[Hg] [facility] Heart rate 2022-10-31 20:42:00 68 /min [facility] Body temperature 2022-10-31 20:42:00 36.5 Chari [facility] Respiratory rate 2022-10-31 20:42:00 18 /min [facility] Body height 2022-10-31 20:42:00 147.3 cm [facility] Body weight 2022-10-31 20:42:00 64.864 kg [facility] BMI 2022-10-31 20:42:00 29.89 kg/m2 [facility] Systolic blood pressure 2022-08-04 21:42:00 108 mm[Hg] [facility] Diastolic blood pressure 2022-08-04 21:42:00 70 mm[Hg] [facility] Heart rate 2022-08-04 21:42:00 74 /min [facility] Body temperature 2022-08-04 21:42:00 36.61 Chari [facility] Respiratory rate 2022-08-04 21:42:00 16 /min [facility] Body height 2022-08-04 21:42:00 147.3 cm [facility] Body weight 2022-08-04 21:42:00 61.598 kg [facility] BMI 2022-08-04 21:42:00 28.38 kg/m2 [facility] Systolic blood pressure 2022-05-02 16:11:00 109 mm[Hg] [facility] Diastolic blood pressure 2022-05-02 16:11:00 65 mm[Hg] [facility] Heart rate 2022-05-02 16:11:00 76 /min [facility] Body temperature 2022-05-02 16:11:00 36.72 Chari [facility] Respiratory rate 2022-05-02 16:11:00 18 /min [facility] Body height 2022-05-02 16:11:00 147.3 cm [facility] Body weight 2022-05-02 16:11:00 64.864 kg [facility] BMI 2022-05-02 16:11:00 29.89 kg/m2 [facility] Body mass index (BMI) [Percentile] Per age and sex 2022-05-02 16:11:00 93.49 % [facility] Systolic blood pressure 2022-01-21 20:35:00 110 mm[Hg] [facility] Diastolic blood pressure 2022-01-21 20:35:00 71 mm[Hg] [facility] Heart rate 2022-01-21 20:35:00 97 /min [facility] Respiratory rate 2022-01-21 20:35:00 18 /min [facility] Body height 2022-01-21 20:35:00 147.3 cm [facility] Body weight 2022-01-21 20:35:00 67.132 kg [facility] BMI 2022-01-21 20:35:00 30.93 kg/m2 [facility] Body mass index (BMI) [Percentile] Per age and sex 2022-01-21 20:35:00 94.89 % [facility] Systolic blood pressure 2021-10-21 20:41:00 107 mm[Hg] [facility] Diastolic blood pressure 2021-10-21 20:41:00 69 mm[Hg] [facility] Heart rate 2021-10-21 20:41:00 80 /min [facility] Body temperature 2021-10-21 20:41:00 36.83 Chari [facility] Respiratory rate 2021-10-21 20:41:00 18 /min [facility] Body height 2021-10-21 20:41:00 147.3 cm [facility] Body weight 2021-10-21 20:41:00 63.957 kg [facility] BMI 2021-10-21 20:41:00 29.47 kg/m2 [facility] Body mass index (BMI) [Percentile] Per age and sex 2021-10-21 20:41:00 93.37 % [facility] Procedures Procedure Date / Time Performed Performing Clinician Source ASSIGNMENT OF BENEFITS 2023-09-06 18:12:54 Docto r Unassigned, [place] [facility] RAPID STREP SCREEN FOR GROUP A 2023-09-06 18:06:00 Trisha Alaniz [facility] RAPID INFLUENZA A/B 2023-09-06 18:06:00 Trisha Alaniz [facility] COVID-19 (ID NOW RAPID TESTING) 2023-09-06 18:06:00 Trisha Alaniz [facility] NOTICE OF PRIVACY PRACTICES 2023-09-06 17:21:21 Doctor Unassigned, [place] [facility] CONSENT/REFUSAL FOR DIAGNOSIS AND TREATMENT 2023-09-06 17:20:14 Doctor Unassigned, [place] [facility] ASSIGNMENT OF BENEFITS 2023-09-06 17:19:46 Docto r Unassigned, [place] [facility] GARDASIL 9 (HPV 9V) VACCINE 2023-01-26 16:02:41 Espinoza Gonsales [facility] PATIENT FINANCIAL POLICY 2023-01-26 14:28:24 Doctor Unassigned, [place] [facility] CONSENT FOR CONTRACEPTION 2022-10-31 06:01:00 Doctor Unassigned, [place] [facility] ASSIGNMENT OF BENEFITS 2022-05-02 15:52:47 Docto r Unassigned, [place] [facility] CONSENT FOR CONTRACEPTION 2021-10-21 06:01:00 Doctor Unassigned, [place] [facility] Encounters Start Date/Time End Date/Time Encounter Type Admission Type Attending Clinicians Care Facility Care Department Encounter ID Source 2021-09-06 18:53:45 Outpatient P [facility] [id number] [facility] 2021-09-06 11:21:28 Outpatient P [facility] [id number] [facility] 2021-09-06 11:20:20 Outpatient [facility] [id number] [facility] 2024-02-01 09:30:00 2024-02-01 09:30:00 Outpatient R ESPINOZA GONSALES [facility] [id number] [facility] 2024-01-19 12:45:00 2024-01-19 12:45:00 Outpatient R HANDY ARRIAGA [facility] [id number] [facility] 2024-01-01 06:45:00 2024-01-01 06:45:00 Outpatient R MEE DE LA GARZA [facility] [id number] [facility] 2023-12-25 09:00:00 2023-12-25 09:00:00 Outpatient R SILVINA GREGG [facility] [id number] [facility] 2023-09-06 12:34:00 2023-09-06 14:38:00 Emergency X TRISHA ALANIZ [facility] E[facility] [id number] [facility] 2023-09-06 12:34:00 2023-09-06 14:38:00 Emergency Trisha Alaniz S [facility] 1..840.114 350.1.13.10 4.2.7.2.686 [id number] [facility] 2023-07-24 15:00:00 2023-07-24 15:00:00 Outpatient R [facility] [id number] [facility] 2023-05-29 09:00:00 2023-05-29 09:00:00 Outpatient R ESPINOZA GONSALES [facility] [id number] [facility] 2023-05-05 15:00:00 2023-05-05 15:00:00 Outpatient R ESPINOZA GONSALES [facility] [id number] [facility] 2023-05-04 15:30:00 2023-05-04 15:30:00 Outpatient R [facility] [id number] [facility] 2023-04-28 09:00:00 2023-04-28 09:00:00 Outpatient R [facility] [id number] [facility] 2023-01-26 09:30:00 2023-01-26 10:08:05 Outpatient R ESPINOZA GONSALES [facility] [id number] [facility] 2023-01-26 09:30:00 2023-01-26 10:08:05 Office [facility] 1..840.114 350.1.13.10 4.2.7.2.686 [id number] 134 [id number] [facility] 2023-01-26 00:00:00 2023-01-26 00:00:00 Orders Only Doctor Unassigned, [place] [facility] 1.2.840.114 350.1.13.10 4.2.7.2.686 [id number] [id number] [facility] 2022-10-31 14:30:00 2022-10-31 14:44:24 Nurse Visit Nurse, formerly [facility] Dru [facility] 1.2.840.114 350.1.13.10 4.2.7.2.686 [id number] 134 [id number] [facility] 2022-10-31 14:30:00 2022-10-31 14:30:00 [id number] 2022-10-31 00:00:00 2022-10-31 00:00:00 Orders Only Doctor Unassigned, [place] [facility] 1.2.840.114 350.1.13.10 4.2.7.2.686 [id number] [facility] 2022-10-29 10:30:00 2022-10-29 10:30:00 Outpatient R ESPINOZA GONSALES [facility] [id number] [facility] 2022-08-05 13:00:00 2022-08-05 13:00:00 Outpatient R [facility] [id number] [facility] 2022-08-04 15:00:00 2022-08-04 16:37:47 Nurse Visit Nurse, formerly [facility] Dru [facility] 1.2.840.114 350.1.13.10 4.2.7.2.686 [id number] [facility] 2022-08-04 15:00:00 2022-08-04 15:00:00 Outpatient R DRU ESPINOZA [facility] [id number] [facility] 2022-07-25 10:00:00 2022-07-25 10:00:00 Outpatient R GONSALES ESPINOZA [facility] [id number] [facility] 2022-05-02 10:30:00 2022-05-02 11:11:21 Outpatient R SUSY [facility] [id number] [facility] 2022-05-02 10:30:00 2022-05-02 11:11:21 Nurse Visit Nurse, [facility] 1..840.114 350.1.13.10 4.2.7.2.686 [id number] 134 [id number] [facility] 2022-05-02 00:00:00 2022-05-02 00:00:00 Orders Only Doctor Unassigned, [place] [facility] 1..840.114 350.1.13.10 4.2.7.2.686 [id number] [id number] [facility] 2022-04-25 14:00:00 2022-04-25 14:00:00 Outpatient R [facility] [id number] [facility] 2022-04-23 10:30:00 2022-04-23 10:30:00 Outpatient R [facility] [id number] [facility] 2022-03-03 02:49:00 2022-03-03 02:49:00 Outpatient LISTER_MELI TARUN [facility] [id number] [place] [facility] 2022-01-21 15:00:00 2022-01-21 15:36:32 Outpatient R PINA GONSALES [facility] [id number] [facility] 2022-01-21 15:00:00 2022-01-21 15:36:32 Nurse Visit Nurse, formerly [facility] Pina Gonsales [facility] 1..840.114 350.1.13.10 4.2.7.2.686 [id number] 134 [id number] [facility] 2022-01-20 10:00:00 2022-01-20 10:00:00 Outpatient R [facility] [id number] [facility] 2021-10-21 14:30:56 2021-10-21 15:01:51 Office Visit Idalia Jain [facility] 1.2.840.114 350.1.13.10 4.2.7.2.686 [id number] 134 [id number] [facility] 2021-10-21 14:30:00 2021-10-21 15:01:51 [facility] [id number] [facility] 2021-10-21 00:00:00 2021-10-21 00:00:00 Orders Only Doctor Unassigned, [place] [facility] 1.2.840.114 350.1.13.10 4.2.7.2.686 [id number] [id number] [facility] 2021-07-25 14:00:00 2021-07-25 14:00:00 Outpatient R ESPINOZA GONSALES [facility] [id number] [facility] 2021-07-25 13:41:25 2021-07-25 13:56:25 Nurse Visit Nurse, [facility] Espinoza Gonsales [facility] 1.2.840.114 350.1.13.10 4.2.7.2.686 [id number] 134 [id number] [facility] 2021-07-17 14:30:00 2021-07-17 14:30:00 Outpatient R [facility] [id number] [facility] 2021-07-16 09:00:00 2021-07-16 09:00:00 Outpatient R [facility] [id number] [facility] 2021-04-17 10:30:00 2021-04-17 10:30:00 Outpatient R [facility] [id number] [facility] 2021-04-17 10:12:23 2021-04-17 10:27:27 Nurse Visit Nurse, formerly [facility] Espinoza Gonsales [facility] 1.284.114 350.1.13.10 4.2.7.2.686 [id number] 134 [id number] [facility] 2021-04-17 00:00:00 2021-04-17 00:00:00 Orders Only Doctor Unassigned, [place] [facility] 1.2.114 350.1.13.10 4.2.7.2.686 [id number] [facility] 2021-04-15 10:00:00 2021-04-15 10:00:00 Outpatient R [facility] [id number] [facility] 2021-01-21 14:27:19 2021-01-21 14:51:33 Nurse Visit Nurse, formerly [facility] Espinoza Gonsales [facility] 1.84.114 350.1.13.10 4.2.7.2.686 [id number] [facility] 2021-01-21 14:30:00 2021-01-21 14:30:00 Outpatient R ESPINOZA GONSALES [facility] [id number] [facility] 2020-12-05 00:00:00 2020-12-05 00:00:00 Telephone Espinoza Gonsales [facility] 1.84.114 350.1.13.10 4.2.7.2.686 [id number] 134 [id number] [facility] 2020-10-18 14:23:45 2020-10-18 15:01:18 Office Visit Idalia Jain [facility] 1.284.114 350.1.13.10 4.2.7.2.686 [id number] [facility] 2020-10-18 14:30:00 2020-10-18 14:30:00 Outpatient Dean IDALIA JAIN [facility] [id number] [facility] 2020-10-18 00:00:00 2020-10-18 00:00:00 Orders Only Doctor Unassigned, [place] [facility] 1.2840.114 350.1.13.10 4.2.7.2.686 [id number] [facility] 2020-08-28 11:30:00 2020-08-28 11:30:00 Outpatient Dean IDALIA JAIN [facility] [id number] [facility] 2020-08-06 10:36:00 2020-08-09 12:53:00 Hospital Encounter Espinoza Gonsales [place] 1.2840.114 350.1.13.10 4.2.7.2.686 [id number] [facility] 2020-08-06 00:00:00 2020-08-06 00:00:00 Telephone Espinoza Gonsales [facility] 1.284.114 350.1.13.10 4.2.7.2.686 [id number] 134 [id number] [facility] 2020-08-02 16:02:54 2020-08-02 16:17:54 Laboratory Only Only, Adc Test Espinoza Gonsales [facility] 1.2840.114 350.1.13.10 4.2.7.2.686 [id number] [facility] 2020-08-02 15:45:00 2020-08-02 15:45:00 Outpatient R [facility] [id number] [facility] 2020-08-02 11:15:00 2020-08-02 11:15:00 Outpatient R [facility] [id number] [facility] 2020-07-31 15:57:47 2020-07-31 16:22:49 Routine Visit Espinoza Gonsales [facility] 1..840.114 350.1.13.10 4.2.7.2.686 [id number] [facility] 2020-07-31 15:45:00 2020-07-31 15:45:00 [facility] [id number] [facility] 2020-07-24 16:15:00 2020-07-24 16:15:00 [facility] [id number] [facility] 2020-07-19 11:45:00 2020-07-19 11:45:00 Outpatient R [facility] [id number] [facility] 2020-07-17 16:32:23 2020-07-17 16:47:23 Routine Visit Idalia Jain [facility] 1..840.114 350.1.13.10 4.2.7.2.686 [id number] [facility] 2020-07-17 16:15:00 2020-07-17 16:15:00 Outpatient R IDALIA JAIN [facility] [id number] [facility] 2020-07-10 15:30:00 2020-07-10 15:30:00 Outpatient R ESPINOZA GONSALES [facility] [id number] [facility] 2020-07-10 10:15:00 2020-07-10 10:15:00 Outpatient R [facility] [id number] [facility] 2020-07-09 15:55:06 2020-07-09 17:36:35 Routine Visit Espinoza Gonsales [facility] 1.2.840.114 350.1.13.10 4.2.7.2.686 [id number] 134 [id number] [facility] 2020-07-09 15:45:00 2020-07-09 15:45:00 Outpatient R ESPINOZA GONSALES [facility] [id number] [facility] 2020-07-09 00:00:00 2020-07-09 00:00:00 Orders Only Doctor Unassigned, [place] [facility] 1.0.114 350.1.13.10 4.2.7.2.686 [id number] [facility] 2020-07-02 14:00:00 2020-07-02 14:00:00 Outpatient R DRU [facility] [id number] [facility] 2020-06-27 00:00:00 2020-06-27 00:00:00 Telephone Susy Idalia [facility] 1.840.114 350.1.13.10 4.2.7.2.686 [id number] 134 [id number] [facility] 2020-06-19 00:00:00 2020-06-19 00:00:00 Letter (Out) GonsalesEspinoza [facility] 1.84.114 350.1.13.10 4.2.7.2.686 [id number] 134 [id number] [facility] 2020-06-19 00:00:00 2020-06-19 00:00:00 Orders Only Doctor Unassigned, [place] [facility] 1.114 350.1.13.10 4.2.7.2.686 [id number] [id number] [facility] 2020-06-18 15:58:50 2020-06-18 16:39:24 Routine Visit Idalia Jain [facility] 1.84.114 350.1.13.10 4.2.7.2.686 [id number] 134 [id number] [facility] 2020-06-18 15:45:00 2020-06-18 15:45:00 Outpatient R IDALIA JAIN [facility] [id number] [facility] 2020-06-18 00:00:00 2020-06-18 00:00:00 Orders Only Doctor Unassigned, [place] [facility] 1.2.840.114 350.1.13.10 4.2.7.2.686 [id number] [id number] [facility] 2020-06-15 23:55:00 2020-06-16 10:40:00 Hospital Encounter Peg Ndiaye [facility] 1.284.114 350.1.13.10 4.2.7.2.686 [id number] [facility] 2020-06-08 00:00:00 2020-06-08 00:00:00 [facility] 1..840.114 350.1.13.10 4.2.7.2.686 [id number] 134 [id number] [facility] 2020-06-06 13:11:28 2020-06-06 14:01:53 Rn Home Health Visit Ultrasound, Hardik Bryant [facility] CONTINUOUS CONVEYOR SCREEN [facility] 1.284.114 350.1.13.10 4.2.7.2.686 [id number] [facility] 2020-06-06 13:00:00 2020-06-06 13:00:00 Outpatient P [facility] [id number] [facility] 2020-06-04 13:17:41 2020-06-04 13:48:54 [facility] 1..840.114 350.1.13.10 4.2.7.2.686 [id number] [facility] 2020-06-04 13:00:00 2020-06-04 13:00:00 Outpatient R ESPINOZA GONSALES [facility] [id number] [facility] 2020-05-29 00:00:00 2020-05-29 00:00:00 Telephone Espinoza Gonsales [facility] 1.2.840.114 350.1.13.10 4.2.7.2.686 [id number] 134 [id number] [facility] 2020-05-25 00:00:00 2020-05-25 00:00:00 Telephone Espinoza Gonsales [facility] 1.2.840.114 350.1.13.10 4.2.7.2.686 [id number] [facility] 2020-05-24 00:00:00 2020-05-24 00:00:00 Telephone Espinoza Gonsales [facility] Annika Perez [facility] 1.2.840.114 350.1.13.10 4.2.7.2.686 [id number] [facility] 2020-05-23 00:00:00 2020-05-23 00:00:00 Telephone Espinoza Gonsales [facility] 1.2.840.114 350.1.13.10 4.2.7.2.686 [id number] [facility] 2020-05-09 13:23:12 2020-05-09 13:38:12 Rn Home Health Visit 2, Adc Lab Espinoza Gonsales GAHELIO Perez [facility] 1.2.840.114 350.1.13.10 4.2.7.2.686 [id number] [facility] 2020-05-09 13:00:00 2020-05-09 13:00:00 Outpatient R [facility] [id number] [facility] 2020-05-07 15:01:11 2020-05-08 17:04:04 Initial Visit Espinoza Gonsales [facility] Annika [facility] 1.2.840.114 350.1.13.10 4.2.7.2.686 [id number] 134 [id number] [facility] 2020-05-08 00:00:00 2020-05-08 00:00:00 Case Management Espinoza Gonsales [facility] 1.2.840.114 350.1.13.10 4.2.7.2.686 [id number] 134 [id number] [facility] 2020-05-08 00:00:00 2020-05-08 00:00:00 Case Management Espinoza Gonsales [facility] 1.2.840.114 350.1.13.10 4.2.7.2.686 [id number] [facility] 2020-05-07 14:15:00 2020-05-07 14:15:00 Outpatient R ESPINOZA GONSALES [facility] [id number] [facility] 2020-05-07 00:00:00 2020-05-07 00:00:00 Orders Only Doctor Unassigned, [place] [facility] 1.2.840.114 350.1.13.10 4.2.7.2.686 [id number] [facility] 2020-04-23 00:00:00 2020-04-23 00:00:00 Telephone Espinoza Gonsales [facility] 1.2.840.114 350.1.13.10 4.2.7.2.686 [id number] 134 [id number] [facility] 2020-04-16 11:00:00 2020-04-16 11:00:00 Outpatient R ESPINOZA GONSALES [facility] [id number] [facility] 2018-04-11 20:58:00 2018-04-11 21:43:00 Emergency E PEG MORRIS [facility] [id number] [facility] Results Test Description Test Time Test Comments [...]
[2024-02-12 00:59] LABS: Specific Gravity 1.025 (1.005-1.030)
[2024-02-12 01:00] LABS: Specific Gravity 1.025 (1.005-1.030); Sqamous Epithelial <5 /HPF (None Seen); Urine Bacteria None Seen /HPF (<20); Urine Bilirubin NEGATIVE (Negative); Urine Blood Negative (Negative); Urine Clarity Clear (Clear); Urine Color Light-Yellow (Yellow); Urine Culture Reflex Order NOT NEEDED; Urine Glucose NEGATIVE (Negative); Urine Ketones NEGATIVE (Negative); Urine Micro Reflex YN NO BILL MICROSCOPIC; Urine Mucus Slight /HPF (None Seen); Urine Nitrite NEGATIVE (Negative); Urine Protein NEGATIVE (Negative); Urine RBC <5 /HPF (None Seen); Urine Urobilinogen 1+ (Normal); Urine WBC <5 /HPF (<5)
[2024-02-12 01:56] LABS: Absolute Basophils 0.1 K/uL (0-0.5); Absolute Eosinophils 0.8 K/uL (0-0.5); Absolute Lymphocytes (CBC) 3.2 K/uL (0.7-4.9); Absolute Monocytes 0.8 K/uL (0.1-1.3); Absolute Neutrophil 5.2 K/uL (1.8-8.0); Basophils % 0.8 % (0-1.3); Eosinophils % 7.6 % (0-4.4); Hematocrit 36.7 % (36.0-45.0); Hemoglobin 12.7 g/dL (12.0-15.0); MCH 31.3 pg (27.0-35.0); MCHC 34.5 g/dL (32.0-36.0); MCV 90.7 fL (80-100); MPV 10.9 fL (7.6-11.3); Monocytes % 7.7 % (3.3-12.3); Neutrophils % 51.9 % (41.7-73.7); Nucleated Red Blood Cells % 0.1 % (0-0); Platelets 205 thou/uL (152-406); RBC Red Blood Cell Count 4.05 M/uL (3.86-4.86); Red Cell Distribution Width 12.7 % (12.1-15.2)
[2024-02-12 02:12] LABS: Anion Gap 9.6 mEq/L (5.0-15.0); Potassium 3.6 mEq/L (3.5-5.1)
--- NOTE | 2024-02-12 02:41 | EDPHYS ---
Physician Documentation [facility] Name: Vijaya Farooq Age: 23 yrs Sex: Female : 2000 Arrival Date: 02/12/2024 Time: 00:19 Bed 13 Private MD: ED Physician Kian Wells HPI: 02/11 01:03 This 23 yrs old Female presents to ER via Ambulatory with complaints of sp3 Abdominal Pain. 01:03 23-year-old female G2, P2 presents to the ED with vaginal spotting, late menses and sp3 abdominal cramping. Patient believes she may be . She did not take a home test. Symptoms are mild. She denies fever, URI symptoms, chest pain, shortness of breath, back pain, upper abdominal pain, rash, significant bleeding, or any other signs or symptoms on ROS at this time.. Historical: - Allergies: 00:32 No Known Allergies; cm10 - Home Meds: 00:32 None [Active]; cm10 - PMHx: 00:32 None; cm10 - PSHx: 00:32 None; cm10 - Immunization history:: Adult Immunizations up to date. - Infectious Disease History:: Denies. - Social history:: Smoking status: Patient denies any tobacco usage or history of. ROS: 01:04 Constitutional: Negative for fever, chills, and weight loss, Eyes: Negative for injury, sp3 pain, redness, and discharge, ENT: Negative for injury, pain, and discharge, Neck: Negative for injury, pain, and swelling, Cardiovascular: Negative for chest pain, palpitations, and edema, Respiratory: Negative for shortness of breath, cough, wheezing, and pleuritic chest pain, Back: Negative for injury and pain, MS/Extremity: Negative for injury and deformity, Skin: Negative for injury, rash, and discoloration, Neuro: Negative for headache, weakness, numbness, tingling, and seizure, Psych: Negative for depression, anxiety, suicide ideation, homicidal ideation, and hallucinations, Allergy/Immunology: Negative for hives, rash, and allergies, Endocrine: Negative for neck swelling, polydipsia, polyuria, polyphagia, and marked weight changes, 01:04 All other systems are negative, Exam: 01:04 Constitutional: This is a well developed, well nourished patient who is awake, alert, sp3 and in no acute distress. Head/Face: Normocephalic, atraumatic. Eyes: Pupils equal round and reactive to light, extra-ocular motions intact. Lids and lashes normal. Conjunctiva and sclera are non-icteric and not injected. Cornea within normal limits. Periorbital areas with no swelling, redness, or edema. Neck: Trachea midline, no thyromegaly or masses palpated, and no cervical lymphadenopathy. Supple, full range of motion without nuchal rigidity, or vertebral point tenderness. No Meningismus. Chest/axilla: Normal chest wall appearance and motion. Nontender with no deformity. No lesions are appreciated. Cardiovascular: Regular rate and rhythm with a normal S1 and S2. No gallops, murmurs, or rubs. Normal PMI, no JVD. No pulse deficits. Respiratory: Lungs have equal breath sounds bilaterally, clear to auscultation and percussion. No rales, rhonchi or wheezes noted. No increased work of breathing, no retractions or nasal flaring. Abdomen/GI: Soft, non-tender, with normal bowel sounds. No distension or tympany. No guarding or rebound. No evidence of tenderness throughout. Back: No spinal tenderness. No costovertebral tenderness. Full range of motion. Skin: Warm, dry with normal turgor. Normal color with no rashes, no lesions, and no evidence of cellulitis. MS/ Extremity: Pulses equal, no cyanosis. Neurovascular intact. Full, normal range of motion. Neuro: Awake and alert, GCS 15, oriented to person, place, time, and situation. Cranial nerves II-XII grossly intact. Motor strength 5/5 in all extremities. Sensory grossly intact. Cerebellar exam normal. Normal gait. Psych: Awake, alert, with orientation to person, place and time. Behavior, mood, and affect are within normal limits. Vital Signs: 00:30 BP 119 / 64; Pulse 108; Resp 18; Temp 98.3; Pulse Ox 100% on R/A; Weight 69.1 kg; cm10 Height 4 ft. 9 in. ; Pain 6/10; 02:00 BP 119 / 99; Pulse 95; Resp 16; Pulse Ox 99% on R/A; jb4 00:30 Body Mass Index 32.97 (69.10 kg, 144.78 cm) cm10 00:30 Pain Scale: Adult cm10 MDM: 00:23 Patient medically screened. sp3 01:04 Data reviewed: vital signs, nurses notes, lab test result(s), radiologic studies. ED sp3 course: 23-year-old female with symptoms above. Patient's hCG is positive. Will work patient up with ultrasound, laboratory values including quant hCG. Differential diagnosis includes , threatened AB, ectopic , UTI/pyelonephritis spectrum, among others. I am not highly suspicious for GI pathology, sepsis, shock, vascular pathology or any other critical illness. Disposition pending workup and patient course with probable discharge with follow-up to OB and repeat quant hCG as indicated.. 02:39 ED course: Beta-hCG 321 and Rh is positive. Ultrasound demonstrates no findings sp3 consistent with hCG. Patient will need repeat hCG in 48 hours. Will discuss with patient options on this. She may return here if she cannot get it done anywhere else.. 02/11 00:30 Order name: UAM; Complete Time: 01:03 sp3 02/11 00:30 Order name: Test, Urine; Complete Time: 01:00 sp3 02/11 01:01 Order name: Abo/rh Typing; Complete Time: 02:17 sp3 02/11 01:01 Order name: Basic Metabolic Panel; Complete Time: 02:17 sp3 02/11 01:01 Order name: CBC with Diff; Complete Time: 02:17 sp3 02/11 01:01 Order name: Quantitative Hcg; Complete Time: 02:17 sp3 02/11 01:01 Order name: US Transvaginal Ob sp3 02/11 01:01 Order name: IV Saline Lock; Complete Time: 01:45 sp3 02/11 01:01 Order name: Labs collected and sent; Complete Time: 01:45 sp3 02/11 01:01 Order name: NPO; Complete Time: 01:45 sp3 Administered Medications: No medications were administered Disposition Summary: 02/12/24 02:41 Discharge Ordered Notes: Location: Home sp3 Condition: Stable sp3 Diagnosis - , abdominal pain sp3 Followup: sp3 - With: Private Physician - When: Upon discharge from the Emergency Department - Reason: Continuance of care Followup: sp3 - With: Skyla Ramsey MD - When: 48 Hours - Reason: Further diagnostic work-up Discharge Instructions: - Discharge Summary Sheet sp3 - Abdominal Pain During sp3 Forms: - Medication Reconciliation Form sp3 - Thank You Letter sp3 - Antibiotic Education sp3 - Prescription Opioid Use sp3 - Patient Portal Instructions sp3 - Leadership Thank You Letter sp3 Signatures: Dispatcher [employer] EDKian Flowers MD MD sp3 Violeta Estrada RN RN cm10 Corrections: (The following items were deleted from the chart) 01:02 01:01 ABO/RH TYPING+BB.LAB.BRZ ordered. EDMS EDMS 01:02 01:01 BASIC METABOLIC PANEL+C.LAB.BRZ ordered. EDMS EDMS 01:02 01:01 CBC+H.LAB.BRZ ordered. EDMS EDMS 01:02 01:01 QUANTITATIVE HCG+C.LAB.BRZ ordered. EDMS EDMS
--- NOTE | 2024-02-12 02:41 | ER ---
Nurse's Notes [facility] Name: Vijaya Farooq Age: 23 yrs Sex: Female : 2000 Arrival Date: 02/12/2024 Time: 00:19 Bed 13 Private MD: Diagnosis: , abdominal pain Presentation: 02/11 00:30 Chief complaint: Patient states: Lower abdominal pain described as sharp. Pt states cm10 that she has had nausea and vomiting. Pt also reports urinary frequency. Coronavirus screen: Client denies travel out of the [place] in the last 14 days. At this time, the client does not indicate any symptoms associated with coronavirus-19. Ebola Screen: Patient denies travel to an Ebola-affected area in the 21 days before illness onset. No symptoms or risks identified at this time. Initial Sepsis Screen: Does the patient meet any 2 criteria? HR > 90 bpm. Does the patient have a suspected source of infection? No. Patient's initial sepsis screen is negative. Risk Assessment: Do you want to hurt yourself or someone else? Patient reports no desire to harm self or others. Onset of symptoms was February 12, 2024. 00:30 Method Of Arrival: Ambulatory cm10 00:30 Acuity: ROBI 3 cm10 Triage Assessment: 00:32 General: Appears in no apparent distress. comfortable, Behavior is calm, cooperative. cm10 Pain: Complains of pain in suprapubic area Pain does not radiate. Pain currently is 6 out of 10 on a pain scale. Quality of pain is described as crampy, Pain began suddenly, Also complains of nausea. Neuro: No deficits noted. Level of Consciousness is awake, alert, obeys commands, Oriented to person, place, time, situation. Historical: - Allergies: 00:32 No Known Allergies; cm10 - Home Meds: 00:32 None [Active]; cm10 - PMHx: 00:32 None; cm10 - PSHx: 00:32 None; cm10 - Immunization history:: Adult Immunizations up to date. - Infectious Disease History:: Denies. - Social history:: Smoking status: Patient denies any tobacco usage or history of. Screenin:00 [facility] ED Fall Risk Assessment (Adult) History of falling in the last 3 months, jb4 including since admission No falls in past 3 months (0 pts) Confusion or Disorientation No (0 pts) Intoxicated or Sedated No (0 pts) Impaired Gait No (0 pts) Mobility Assist Device Used No (0 pt) Altered Elimination No (0 pt) Score/Fall Risk Level 0 - 2 = Low Risk Oriented to surroundings, Maintained a safe environment. Abuse screen: Denies threats or abuse. Nutritional screening: No deficits noted. Tuberculosis screening: No symptoms or risk factors identified. Assessment: 00:43 General: Appears in no apparent distress. comfortable, Behavior is calm, cooperative, jb4 appropriate for age. Pain: Complains of pain in abdomen Pain does not radiate. Pain currently is 6 out of 10 on a pain scale. Neuro: Level of Consciousness is awake, alert, obeys commands, Oriented to person, place, time, situation. Cardiovascular: Patient's skin is warm and dry. Respiratory: Airway is patent Respiratory effort is even, unlabored, Respiratory pattern is regular, symmetrical. GI: Abdomen is flat, non-distended, Reports lower abdominal pain. : No signs and/or symptoms were reported regarding the genitourinary system. EENT: No signs and/or symptoms were reported regarding the EENT system. Derm: Skin is intact, Skin is pink, warm \T\ dry. Musculoskeletal: Circulation, motion, and sensation intact. Range of motion: intact in all extremities. 01:30 Reassessment: Patient appears in no apparent distress at this time. Patient and/or jb4 family updated on plan of care and expected duration. Pain level reassessed. Patient is alert, oriented x 3, equal unlabored respirations, skin warm/dry/pink. 02:30 Reassessment: Pt resting in bed with eyes closed, respirations are even and unlabored. jb4 03:00 Reassessment: Pt reminded of need to follow up in 48hrs to have Beta HCG redrawn. jb4 Vital Signs: 00:30 BP 119 / 64; Pulse 108; Resp 18; Temp 98.3; Pulse Ox 100% on R/A; Weight 69.1 kg; cm10 Height 4 ft. 9 in. ; Pain 6/10; 02:00 BP 119 / 99; Pulse 95; Resp 16; Pulse Ox 99% on R/A; jb4 00:30 Body Mass Index 32.97 (69.10 kg, 144.78 cm) cm10 00:30 Pain Scale: Adult cm10 ED Course: 00:22 Patient arrived in ED. jj6 00:23 Kian Wells MD is Attending Physician. sp3 00:32 Triage completed. cm10 00:32 Arm band placed on Patient placed in an exam room, on a stretcher. cm10 01:44 US Transvaginal Ob In Process Unspecified. EDMS 01:45 Quantitative Hcg Sent. jb4 01:45 CBC with Diff Sent. jb4 01:45 Basic Metabolic Panel Sent. jb4 01:45 Abo/rh Typing Sent. jb4 02:40 Skyla Ramsey MD is Referral Physician. sp3 03:00 Patient has correct armband on for positive identification. Bed in low position. Call jb4 light in reach. Side rails up X 1. Provided Education on: discharge instructions.. 03:00 No provider procedures requiring assistance completed. IV discontinued, intact, jb4 bleeding controlled, No redness/swelling at site. Pressure dressing applied. Administered Medications: No medications were administered Medication: 03:00 VIS not applicable for this client. jb4 Outcome: 02:41 Discharge ordered by . sp3 03:00 Discharged to home ambulatory, jb4 03:00 Condition: stable 03:00 Discharge instructions given to patient, Instructed on discharge instructions, follow up and referral plans. Demonstrated understanding of instructions, follow-up care, 03:02 Patient left the ED. jb4 Signatures: Dispatcher [employer] Brian South, RN RN jb4 Kian Wells MD MD sp3 Ifeoma Bradford jj6 Violeta Estrada, RN RN cm10 Corrections: (The following items were deleted from the chart) 00:44 00:43 GI: Abdomen is flat, non-distended, Reports lower abdominal pain, upper abdominal jb4 pain, jb4
[2024-02-12 06:55] VITALS: BP 119/99; TEMP 98.3; O2SAT 99
--- NOTE | 2024-02-12 15:57 | RAD REPORT ---
EXAM DESCRIPTION: US - Transvaginal OB - 02/12/2024 1:42 am CLINICAL HISTORY: Female, 23 years old, Vaginal bleeding;Abd cramping, COMPARISON: None. TECHNIQUE: Transabdominal and transvaginal ultrasound of the pelvis. FINDINGS: UTERUS: Measures 9 x 4.5 x 6.1 cm. Homogeneous myometrium without discrete lesion. No visu alized gestational sac. Endometrial stripe thickness measures 11 mm. RIGHT OVARY: Measures 3.2 x 1.5 x 2.1 cm, with volume of 5 mL. Normal morphology. Normal color and sp ectral Doppler flow. LEFT OVARY: Not visualized due to positioning or overlying bowel gas. No visualized adnexal lesion. FREE FLUID: No visualized free fluid. IMPRESSION: No intrauterine gestational sac. In the setting of positive laboratory test for pregnanc y without reported miscarriage the findings are consistent with a of unknown location, a de signation which includes normal early . Follow-up with trending of hCG values is recommended . Follow-up ultrasound may be considered in 2 weeks or sooner if clinically indicated. Electronically signed by: Mahamed Rudd MD 02/12/2024 02:20 AM CDT Due to temporary technical issues with the PACS/Fluency reporting system, reports are being signed by the in house radiologists without review as a courtesy to insure prompt reporting. The interpreting radiologist is fully responsible for the content of the report
== END 2024-02-12 03:02 | disposition home or self-care (01) ==
LOC: ER 00:19
DX: O26.891 Other specified pregnancy related conditions, first trimester (principal); Z3A.00 Weeks of gestation of pregnancy not specified
CPT/HCPCS: 36415; 76817; 80048; 81001; 81025; 84702; 85025; 86900; 86901; 99283

== ENCOUNTER 2024-05-18 19:29 | Emergency (ER) | payer SELFPAY ==
--- OUTSIDE RECORDS SUMMARY | 2024-05-18 19:33 | XMS REPORT | Continuity of Care Document ---
Author Name Unknown Address [address] [id number] [facility] Address [address] [place] [address] Care Team Providers Care Sewing Line Baler Name Role Phone PCP, PATIENT DOES NOT HAVE A Primary Care Physic kate Unavailable MICA CORTEZ Attending Clinician Unavailable HANDY ARRIAGA Attending Clinician Unavail able SILVINA GREGG Attending Clinician Unavaila ESPINOZA Conner Attending Clinician Unavailable MEE DE LA GARZA Attending Clinician Unavail able CAITLYN DE LA VEGA Attending Clinician Unavailab TRISHA Leiva Attending Clinician Unavailable Trisha Sanon S Attending Clinician [phone] Espinoza Gonsales MD Attending Clinician [phone] Doctor Unassigned, [place] Attending Clinician U navailable Nurse, [facility] Attending Clinician Un available IDALIA JAIN Attending Clinician Unavailable Idalia Jain PA-C Attending Clinician [phone] NOVA Attending Clinician Unavailable PINA GONSALES Attending Clinician Unavailable Pina Healy Attending Clinician [phone] Only, Adc Test Attending Clinician Unavailable Peg Ndiaye MD Attending Clinician [phone] Ultrasound, Ang-Mfm Attending Clinician UnavailHardik Solomon MD Attending Clinician [phone], [facility] Attending Clinician Unavailable DR PEG MORRIS Attending Clinician Unavailable ESPINOZA GONSALES Admitting Clinician Unavailable PEG NDIAYE Admitting Clinician Unavaila zhane BHATT Admitting Clinician Unavailable Espinoza Gonsales MD Admitting Clinician [phone] Peg Ndiaye MD Admitting Clinician [phone] DR PEG MORRIS Admitting Clinician Unavailable Payers Payer Name Policy Type Policy Number Effective Date Expirati on Date Source [facility] JENNIFER SANCHEZ [id number] 2020 00:00:00 Celestine-AVERY [id number] 2023 00:00:00 Problems Condition Name Condition Details Condition Category Status Onset Date Resolution Date Last Treatment Date Treating Clinician Comments Source No known active problems No known active problems Disease [facility] Allergies, Adverse Reactions, Alerts Allergy Name Allergy Type Status Severity Reaction(s) Onset Date Inactive Date Treating Clinician Comments Source NO KNOWN ALLERGIE S Drug Class Active [facility] Social History Social Habit Start Date Stop Date Quantity Comments Source [facility]OH Alcohol Std Dr[facility] History SDOH Alcohol Binge [facility] History SDOH Alcohol Comment [place] [facility] Alcohol intake 2023-09-06 00:00:00 2023-09-06 00:00:00 Lifetime non-drinker (finding) [facility] Exposure to SARS-CoV-2 (event) 2023-01-16 00:00:00 2023-01-26 09:25:00 Not sure [facility] Tobacco use and exposure 2022-08-04 00:00:00 2022-08-04 00:00:00 Smokeless tobacco non-user [facility] History of Social function 2021-10-21 00:00:00 2021-10-21 00:00:00 [facility] History SDOH Alcohol Frequency 2020-05-07 00:00:00 2020-05-07 00:00:00 1 [facility] Sex Assigned At 2000 00:00:00 2000 00:00:00 [facility] Smoking Status Start Date Stop Date Source Never smoked tobacco [facility] Medications Ordered Medication Name Filled Medication Name Start Date Stop Date Current Medication? Ordering Clinician Indication Dosage Frequency Signature (SIG) Comments Components Source oseltamivir (TAMIFLU) 75 mg capsule 2022-11 00:00: 00 Yes [id number] 75mg Take 1 capsule by mouth in the morning and 1 capsule in the evening. [facility] medroxyPROG ESTERone (DEPO-PROVE RA) syringe 150 mg - 17:00: 00 01-26 16:03 :00 No [id number] 150mg [facility] medroxyPROG ESTERone (DEPO-PROVE RA) syringe 150 mg 2021-11- 21:30: 00 10-31 20:44 :00 No [id number] [facility] medroxyPROG ESTERone (DEPO-PROVE RA) syringe 150 mg 05-02 17:15: 00 05-02 16:17 :00 No [id number] [facility] medroxyPROG ESTERone (DEPO-PROVE RA) syringe 150 mg 01-21 21:45: 00 01-21 20:37 :00 No [id number] 150mg [facility] medroxyPROG ESTERone (DEPO-PROVE RA) syringe 150 mg 2020-11 21:45: 00 10-21 20:59 :00 No [id number] 150mg [facility] vitamin w/FA tablet 2019-11 00:00: 00 01-26 00:00 :00 No [id number] 1{tbl} Take 1 tablet by mouth daily. [facility] docusate calcium 240 mg capsule 2019-11 00:00: 00 01-26 00:00 :00 No [id number] 240mg Take 1 capsule by mouth once daily as needed for Constipati on. [facility] ferrous sulfate 325 mg (65 mg iron) tablet 2019-11 00:0001-26 00:00 :00 No [id number] 325mg Take 1 tablet by mouth 2 (two) times daily. [facility] ibuprofen 600 mg tablet 2019-11 00:00: 01-26 00:00 :00 No [id number] 600mg Take 1 tablet by mouth every 6 (six) hours as needed (Pain). Take with food or milk. [facility] Immunizations Ordered Immunization Name Filled Immunization Name Date Status Comments Source HPV9 2023-01-26 00:00:00 Completed [facility] HPV9 2023-01-26 00:00:00 Completed [facility] TDAP 2020-06-04 00:00:00 Completed [facility] TDAP 2020-06-04 00:00:00 Completed [facility] TDAP 2020-06-04 00:00:00 Completed [facility] TDAP 2020-06-04 00:00:00 Completed [facility] TDAP 2020-06-04 00:00:00 Completed [facility] TDAP 2020-06-04 00:00:00 Completed [facility] TDAP 2020-06-04 00:00:00 Completed [facility] TDAP 2020-06-04 00:00:00 Completed [facility] TDAP 2020-06-04 00:00:00 Completed [facility] TDAP 2020-06-04 00:00:00 Completed [facility] TDAP 2020-06-04 00:00:00 Completed [facility] TDAP 2020-06-04 00:00:00 Completed [facility] TDAP 2020-06-04 00:00:00 Completed [facility] TDAP 2018-02-26 00:00:00 Completed [facility] TDAP 2018-02-26 00:00:00 Completed [facility] TDAP 2018-02-26 00:00:00 Completed [facility] TDAP 2018-02-26 00:00:00 Completed [facility] TDAP 2018-02-26 00:00:00 Completed [facility] TDAP 2018-02-26 00:00:00 Completed [facility] TDAP 2018-02-26 00:00:00 Completed [facility] TDAP 2018-02-26 00:00:00 Completed [facility] TDAP 2018-02-26 00:00:00 Completed [facility] TDAP 2018-02-26 00:00:00 Completed [facility] TDAP 2018-02-26 00:00:00 Completed [facility] TDAP 2018-02-26 00:00:00 Completed [facility] TDAP 2018-02-26 00:00:00 Completed [facility] HPV 2015-05-03 00:00:00 Completed [facility] Meningococcal Polysaccharide (groups A, C, Y and W-135) conjugate vaccine (MCV4P) 2015-05-03 00:00:00 Completed [facility] TDAP 2015-05-03 00:00:00 Completed [facility] HPV 2015-05-03 00:00:00 Completed [facility] Meningococcal Polysaccharide (groups A, C, Y and W-135) conjugate vaccine (MCV4P) 2015-05-03 00:00:00 Completed [facility] TDAP 2015-05-03 00:00:00 Completed [facility] HPV 2015-05-03 00:00:00 Completed [facility] Meningococcal Polysaccharide (groups A, C, Y and W-135) conjugate vaccine (MCV4P) 2015-05-03 00:00:00 Completed [facility] TDAP 2015-05-03 00:00:00 Completed [facility] HPV 2015-05-03 00:00:00 Completed [facility] Meningococcal Polysaccharide (groups A, C, Y and W-135) conjugate vaccine (MCV4P) 2015-05-03 00:00:00 Completed [facility] TDAP 2015-05-03 00:00:00 Completed [facility] HPV 2015-05-03 00:00:00 Completed [facility] Meningococcal Polysaccharide (groups A, C, Y and W-135) conjugate vaccine (MCV4P) 2015-05-03 00:00:00 Completed [facility] TDAP 2015-05-03 00:00:00 Completed [facility] HPV 2015-05-03 00:00:00 Completed [facility] Meningococcal Polysaccharide (groups A, C, Y and W-135) conjugate vaccine (MCV4P) 2015-05-03 00:00:00 Completed [facility] TDAP 2015-05-03 00:00:00 Completed [facility] HPV 2015-05-03 00:00:00 Completed [facility] Meningococcal Polysaccharide (groups A, C, Y and W-135) conjugate vaccine (MCV4P) 2015-05-03 00:00:00 Completed [facility] TDAP 2015-05-03 00:00:00 Completed [facility] HPV 2015-05-03 00:00:00 Completed [facility] Meningococcal Polysaccharide (groups A, C, Y and W-135) conjugate vaccine (MCV4P) 2015-05-03 00:00:00 Completed [facility] TDAP 2015-05-03 00:00:00 Completed [facility] HPV 2015-05-03 00:00:00 Completed [facility] Meningococcal Polysaccharide (groups A, C, Y and W-135) conjugate vaccine (MCV4P) 2015-05-03 00:00:00 Completed [facility] TDAP 2015-05-03 00:00:00 Completed [facility] HPV 2015-05-03 00:00:00 Completed [facility] Meningococcal Polysaccharide (groups A, C, Y and W-135) conjugate vaccine (MCV4P) 2015-05-03 00:00:00 Completed [facility] TDAP 2015-05-03 00:00:00 Completed [facility] HPV 2015-05-03 00:00:00 Completed [facility] Meningococcal Polysaccharide (groups A, C, Y and W-135) conjugate vaccine (MCV4P) 2015-05-03 00:00:00 Completed [facility] TDAP 2015-05-03 00:00:00 Completed [facility] HPV 2015-05-03 00:00:00 Completed [facility] Meningococcal Polysaccharide (groups A, C, Y and W-135) conjugate vaccine (MCV4P) 2015-05-03 00:00:00 Completed [facility] TDAP 2015-05-03 00:00:00 Completed [facility] HPV 2015-05-03 00:00:00 Completed [facility] Meningococcal Polysaccharide (groups A, C, Y and W-135) conjugate vaccine (MCV4P) 2015-05-03 00:00:00 Completed [facility] TDAP 2015-05-03 00:00:00 Completed [facility] HEPATITIS A 2008-03-29 00:00:00 Completed [facility] HEPATITIS A 2008-03-29 00:00:00 Completed [facility] HEPATITIS A 2008-03-29 00:00:00 Completed [facility] HEPATITIS A 2008-03-29 00:00:00 Completed [facility] HEPATITIS A 2008-03-29 00:00:00 Completed [facility] HEPATITIS A 2008-03-29 00:00:00 Completed [facility] HEPATITIS A 2008-03-29 00:00:00 Completed [facility] HEPATITIS A 2008-03-29 00:00:00 Completed [facility] HEPATITIS A 2008-03-29 00:00:00 Completed [facility] HEPATITIS A 2008-03-29 00:00:00 Completed [facility] HEPATITIS A 2008-03-29 00:00:00 Completed [facility] HEPATITIS A 2008-03-29 00:00:00 Completed [facility] HEPATITIS A 2008-03-29 00:00:00 Completed [facility] Polio (IPV/OPV) 2007-06-09 00:00:00 Completed [facility] Proquad (MMR/VARICELLA) 2007-06-09 00:00:00 Completed [facility] DTAP 2007-06-09 00:00:00 Completed [facility] HEPATITIS A 2007-06-09 00:00:00 Completed [facility] Polio (IPV/OPV) 2007-06-09 00:00:00 Completed [facility] Proquad (MMR/VARICELLA) 2007-06-09 00:00:00 Completed [facility] DTAP 2007-06-09 00:00:00 Completed [facility] HEPATITIS A 2007-06-09 00:00:00 Completed [facility] Polio (IPV/OPV) 2007-06-09 00:00:00 Completed [facility] Proquad (MMR/VARICELLA) 2007-06-09 00:00:00 Completed [facility] DTAP 2007-06-09 00:00:00 Completed [facility] HEPATITIS A 2007-06-09 00:00:00 Completed [facility] Polio (IPV/OPV) 2007-06-09 00:00:00 Completed [facility] Proquad (MMR/VARICELLA) 2007-06-09 00:00:00 Completed [facility] DTAP 2007-06-09 00:00:00 Completed [facility] HEPATITIS A 2007-06-09 00:00:00 Completed [facility] Polio (IPV/OPV) 2007-06-09 00:00:00 Completed [facility] Proquad (MMR/VARICELLA) 2007-06-09 00:00:00 Completed [facility] DTAP 2007-06-09 00:00:00 Completed [facility] HEPATITIS A 2007-06-09 00:00:00 Completed [facility] Polio (IPV/OPV) 2007-06-09 00:00:00 Completed [facility] Proquad (MMR/VARICELLA) 2007-06-09 00:00:00 Completed [facility] DTAP 2007-06-09 00:00:00 Completed [facility] HEPATITIS A 2007-06-09 00:00:00 Completed [facility] Polio (IPV/OPV) 2007-06-09 00:00:00 Completed [facility] Proquad (MMR/VARICELLA) 2007-06-09 00:00:00 Completed [facility] DTAP 2007-06-09 00:00:00 Completed [facility] HEPATITIS A 2007-06-09 00:00:00 Completed [facility] Polio (IPV/OPV) 2007-06-09 00:00:00 Completed [facility] Proquad (MMR/VARICELLA) 2007-06-09 00:00:00 Completed [facility] DTAP 2007-06-09 00:00:00 Completed [facility] HEPATITIS A 2007-06-09 00:00:00 Completed [facility] Polio (IPV/OPV) 2007-06-09 00:00:00 Completed [facility] Proquad (MMR/VARICELLA) 2007-06-09 00:00:00 Completed [facility] DTAP 2007-06-09 00:00:00 Completed [facility] HEPATITIS A 2007-06-09 00:00:00 Completed [facility] Polio (IPV/OPV) 2007-06-09 00:00:00 Completed [facility] Proquad (MMR/VARICELLA) 2007-06-09 00:00:00 Completed [facility] DTAP 2007-06-09 00:00:00 Completed [facility] HEPATITIS A 2007-06-09 00:00:00 Completed [facility] Polio (IPV/OPV) 2007-06-09 00:00:00 Completed [facility] Proquad (MMR/VARICELLA) 2007-06-09 00:00:00 Completed [facility] DTAP 2007-06-09 00:00:00 Completed [facility] HEPATITIS A 2007-06-09 00:00:00 Completed [facility] Polio (IPV/OPV) 2007-06-09 00:00:00 Completed [facility] Proquad (MMR/VARICELLA) 2007-06-09 00:00:00 Completed [facility] DTAP 2007-06-09 00:00:00 Completed [facility] HEPATITIS A 2007-06-09 00:00:00 Completed [facility] Polio (IPV/OPV) 2007-06-09 00:00:00 Completed [facility] Proquad (MMR/VARICELLA) 2007-06-09 00:00:00 Completed [facility] DTAP 2007-06-09 00:00:00 Completed [facility] HEPATITIS A 2007-06-09 00:00:00 Completed [facility] MMR 2004-08-26 00:00:00 Completed [facility] Varicella (varivax)(chicken pox) 2004-08-26 00:00:00 Completed [facility] Pneumococcal 7 Conjugate, PCV7 (Prevnar7) 2004-08-26 00:00:00 Completed [facility] MMR 2004-08-26 00:00:00 Completed [facility] Varicella (varivax)(chicken pox) 2004-08-26 00:00:00 Completed [facility] Pneumococcal 7 Conjugate, PCV7 (Prevnar7) 2004-08-26 00:00:00 Completed [facility] MMR 2004-08-26 00:00:00 Completed [facility] Varicella (varivax)(chicken pox) 2004-08-26 00:00:00 Completed [facility] Pneumococcal 7 Conjugate, PCV7 (Prevnar7) 2004-08-26 00:00:00 Completed [facility] MMR 2004-08-26 00:00:00 Completed [facility] Varicella (varivax)(chicken pox) 2004-08-26 00:00:00 Completed [facility] Pneumococcal 7 Conjugate, PCV7 (Prevnar7) 2004-08-26 00:00:00 Completed [facility] MMR 2004-08-26 00:00:00 Completed [facility] Varicella (varivax)(chicken pox) 2004-08-26 00:00:00 Completed [facility] Pneumococcal 7 Conjugate, PCV7 (Prevnar7) 2004-08-26 00:00:00 Completed [facility] 2004-08-26 00:00:00 Completed [facility] Varicella (varivax)(chicken pox) 2004-08-26 00:00:00 Completed [facility] Pneumococcal 7 Conjugate, PCV7 (Prevnar7) 2004-08-26 00:00:00 Completed [facility] 2004-08-26 00:00:00 Completed [facility] Varicella (varivax)(chicken pox) 2004-08-26 00:00:00 Completed [facility] Pneumococcal 7 Conjugate, PCV7 (Prevnar7) 2004-08-26 00:00:00 Completed [facility] 2004-08-26 00:00:00 Completed [facility] Varicella (varivax)(chicken pox) 2004-08-26 00:00:00 Completed [facility] Pneumococcal 7 Conjugate, PCV7 (Prevnar7) 2004-08-26 00:00:00 Completed [facility] MMR 2004-08-26 00:00:00 Completed [facility] Varicella (varivax)(chicken pox) 2004-08-26 00:00:00 Completed [facility] Pneumococcal 7 Conjugate, PCV7 (Prevnar7) 2004-08-26 00:00:00 Completed [facility] MMR 2004-08-26 00:00:00 Completed [facility] Varicella (varivax)(chicken pox) 2004-08-26 00:00:00 Completed [facility] Pneumococcal 7 Conjugate, PCV7 (Prevnar7) 2004-08-26 00:00:00 Completed [facility] 2004-08-26 00:00:00 Completed [facility] Varicella (varivax)(chicken pox) 2004-08-26 00:00:00 Completed [facility] Pneumococcal 7 Conjugate, PCV7 (Prevnar7) 2004-08-26 00:00:00 Completed [facility] MMR 2004-08-26 00:00:00 Completed [facility] Varicella (varivax)(chicken pox) 2004-08-26 00:00:00 Completed [facility] Pneumococcal 7 Conjugate, PCV7 (Prevnar7) 2004-08-26 00:00:00 Completed [facility] MMR 2004-08-26 00:00:00 Completed [facility] Varicella (varivax)(chicken pox) 2004-08-26 00:00:00 Completed [facility] Pneumococcal 7 Conjugate, PCV7 (Prevnar7) 2004-08-26 00:00:00 Completed [facility] DTAP 2004-07-18 00:00:00 Completed [facility] HIB 4 Dose Schedule 2004-07-18 00:00:00 Completed [facility] DTAP 2004-07-18 00:00:00 Completed [facility] HIB 4 Dose Schedule 2004-07-18 00:00:00 Completed [facility] DTAP 2004-07-18 00:00:00 Completed [facility] HIB 4 Dose Schedule 2004-07-18 00:00:00 Completed [facility] DTAP 2004-07-18 00:00:00 Completed [facility] HIB 4 Dose Schedule 2004-07-18 00:00:00 Completed [facility] DTAP 2004-07-18 00:00:00 Completed [facility] HIB 4 Dose Schedule 2004-07-18 00:00:00 Completed [facility] DTAP 2004-07-18 00:00:00 Completed [facility] HIB 4 Dose Schedule 2004-07-18 00:00:00 Completed [facility] DTAP 2004-07-18 00:00:00 Completed [facility] HIB 4 Dose Schedule 2004-07-18 00:00:00 Completed [facility] DTAP 2004-07-18 00:00:00 Completed [facility] HIB 4 Dose Schedule 2004-07-18 00:00:00 Completed [facility] DTAP 2004-07-18 00:00:00 Completed [facility] HIB 4 Dose Schedule 2004-07-18 00:00:00 Completed [facility] DTAP 2004-07-18 00:00:00 Completed [facility] HIB 4 Dose Schedule 2004-07-18 00:00:00 Completed [facility] DTAP 2004-07-18 00:00:00 Completed [facility] HIB 4 Dose Schedule 2004-07-18 00:00:00 Completed [facility] DTAP 2004-07-18 00:00:00 Completed [facility] HIB 4 Dose Schedule 2004-07-18 00:00:00 Completed [facility] DTAP 2004-07-18 00:00:00 Completed [facility] HIB 4 Dose Schedule 2004-07-18 00:00:00 Completed [facility] Hep B, Adol or Pedi Dosage 2003-07-02 00:00:00 Completed [facility] Polio (IPV/OPV) 2003-07-02 00:00:00 Completed [facility] DTAP 2003-07-02 00:00:00 Completed [facility] HIB 4 Dose Schedule 2003-07-02 00:00:00 Completed [facility] Hep B, Adol or Pedi Dosage 2003-07-02 00:00:00 Completed [facility] Polio (IPV/OPV) 2003-07-02 00:00:00 Completed [facility] DTAP 2003-07-02 00:00:00 Completed [facility] HIB 4 Dose Schedule 2003-07-02 00:00:00 Completed [facility] Hep B, Adol or Pedi Dosage 2003-07-02 00:00:00 Completed [facility] Polio (IPV/OPV) 2003-07-02 00:00:00 Completed [facility] DTAP 2003-07-02 00:00:00 Completed [facility] HIB 4 Dose Schedule 2003-07-02 00:00:00 Completed [facility] Hep B, Adol or Pedi Dosage 2003-07-02 00:00:00 Completed [facility] Polio (IPV/OPV) 2003-07-02 00:00:00 Completed [facility] DTAP 2003-07-02 00:00:00 Completed [facility] HIB 4 Dose Schedule 2003-07-02 00:00:00 Completed [facility] Hep B, Adol or Pedi Dosage 2003-07-02 00:00:00 Completed [facility] Polio (IPV/OPV) 2003-07-02 00:00:00 Completed [facility] [facility] DTAP 2003-07-02 00:00:00 Completed [facility] HIB 4 Dose Schedule 2003-07-02 00:00:00 Completed [facility] Hep B, Adol or Pedi Dosage 2003-07-02 00:00:00 Completed [facility] Polio (IPV/OPV) 2003-07-02 00:00:00 Completed [facility] DTAP 2003-07-02 00:00:00 Completed [facility] HIB 4 Dose Schedule 2003-07-02 00:00:00 Completed [facility] Hep B, Adol or Pedi Dosage 2003-07-02 00:00:00 Completed [facility] Polio (IPV/OPV) 2003-07-02 00:00:00 Completed [facility] DTAP 2003-07-02 00:00:00 Completed [facility] HIB 4 Dose Schedule 2003-07-02 00:00:00 Completed [facility] Hep B, Adol or Pedi Dosage 2003-07-02 00:00:00 Completed [facility] Polio (IPV/OPV) 2003-07-02 00:00:00 Completed [facility] DTAP 2003-07-02 00:00:00 Completed [facility] HIB 4 Dose Schedule 2003-07-02 00:00:00 Completed [facility] Hep B, Adol or Pedi Dosage 2003-07-02 00:00:00 Completed [facility] Polio (IPV/OPV) 2003-07-02 00:00:00 Completed [facility] DTAP 2003-07-02 00:00:00 Completed [facility] HIB 4 Dose Schedule 2003-07-02 00:00:00 Completed [facility] Hep B, Adol or Pedi Dosage 2003-07-02 00:00:00 Completed [facility] Polio (IPV/OPV) 2003-07-02 00:00:00 Completed [facility] DTAP 2003-07-02 00:00:00 Completed [facility] HIB 4 Dose Schedule 2003-07-02 00:00:00 Completed [facility] Hep B, Adol or Pedi Dosage 2003-07-02 00:00:00 Completed [facility] Polio (IPV/OPV) 2003-07-02 00:00:00 Completed [facility] DTAP 2003-07-02 00:00:00 Completed [facility] HIB 4 Dose Schedule 2003-07-02 00:00:00 Completed [facility] Hep B, Adol or Pedi Dosage 2003-07-02 00:00:00 Completed [facility] Polio (IPV/OPV) 2003-07-02 00:00:00 Completed [facility] DTAP 2003-07-02 00:00:00 Completed [facility] HIB 4 Dose Schedule 2003-07-02 00:00:00 Completed [facility] Hep B, Adol or Pedi Dosage 2003-07-02 00:00:00 Completed [facility] Polio (IPV/OPV) 2003-07-02 00:00:00 Completed [facility] DTAP 2003-07-02 00:00:00 Completed [facility] HIB 4 Dose Schedule 2003-07-02 00:00:00 Completed [facility] Polio (IPV/OPV) 2003-05-01 00:00:00 Completed [facility] DTAP 2003-05-01 00:00:00 Completed [facility] HIB 4 Dose Schedule 2003-05-01 00:00:00 Completed [facility] Polio (IPV/OPV) 2003-05-01 00:00:00 Completed [facility] DTAP 2003-05-01 00:00:00 Completed [facility] HIB 4 Dose Schedule 2003-05-01 00:00:00 Completed [facility] Polio (IPV/OPV) 2003-05-01 00:00:00 Completed [facility] DTAP 2003-05-01 00:00:00 Completed [facility] HIB 4 Dose Schedule 2003-05-01 00:00:00 Completed [facility] Polio (IPV/OPV) 2003-05-01 00:00:00 Completed [facility] DTAP 2003-05-01 00:00:00 Completed [facility] HIB 4 Dose Schedule 2003-05-01 00:00:00 Completed [facility] Polio (IPV/OPV) 2003-05-01 00:00:00 Completed [facility] DTAP 2003-05-01 00:00:00 Completed [facility] HIB 4 Dose Schedule 2003-05-01 00:00:00 Completed [facility] Polio (IPV/OPV) 2003-05-01 00:00:00 Completed [facility] DTAP 2003-05-01 00:00:00 Completed [facility] HIB 4 Dose Schedule 2003-05-01 00:00:00 Completed [facility] Polio (IPV/OPV) 2003-05-01 00:00:00 Completed [facility] DTAP 2003-05-01 00:00:00 Completed [facility] HIB 4 Dose Schedule 2003-05-01 00:00:00 Completed [facility] Polio (IPV/OPV) 2003-05-01 00:00:00 Completed [facility] DTAP 2003-05-01 00:00:00 Completed [facility] HIB 4 Dose Schedule 2003-05-01 00:00:00 Completed [facility] Polio (IPV/OPV) 2003-05-01 00:00:00 Completed [facility] DTAP 2003-05-01 00:00:00 Completed [facility] HIB 4 Dose Schedule 2003-05-01 00:00:00 Completed [facility] Polio (IPV/OPV) 2003-05-01 00:00:00 Completed [facility] DTAP 2003-05-01 00:00:00 Completed [facility] HIB 4 Dose Schedule 2003-05-01 00:00:00 Completed [facility] Polio (IPV/OPV) 2003-05-01 00:00:00 Completed [facility] DTAP 2003-05-01 00:00:00 Completed [facility] HIB 4 Dose Schedule 2003-05-01 00:00:00 Completed [facility] Polio (IPV/OPV) 2003-05-01 00:00:00 Completed [facility] DTAP 2003-05-01 00:00:00 Completed [facility] HIB 4 Dose Schedule 2003-05-01 00:00:00 Completed [facility] Polio (IPV/OPV) 2003-05-01 00:00:00 Completed [facility] DTAP 2003-05-01 00:00:00 Completed [facility] HIB 4 Dose Schedule 2003-05-01 00:00:00 Completed [facility] Hep B, Adol or Pedi Dosage 2003-02-27 00:00:00 Completed [facility] Polio (IPV/OPV) 2003-02-27 00:00:00 Completed [facility] DTAP 2003-02-27 00:00:00 Completed [facility] HIB 4 Dose Schedule 2003-02-27 00:00:00 Completed [facility] Hep B, Adol or Pedi Dosage 2003-02-27 00:00:00 Completed [facility] Polio (IPV/OPV) 2003-02-27 00:00:00 Completed [facility] DTAP 2003-02-27 00:00:00 Completed [facility] HIB 4 Dose Schedule 2003-02-27 00:00:00 Completed [facility] Hep B, Adol or Pedi Dosage 2003-02-27 00:00:00 Completed [facility] Polio (IPV/OPV) 2003-02-27 00:00:00 Completed [facility] DTAP 2003-02-27 00:00:00 Completed [facility] HIB 4 Dose Schedule 2003-02-27 00:00:00 Completed [facility] Hep B, Adol or Pedi Dosage 2003-02-27 00:00:00 Completed [facility] Polio (IPV/OPV) 2003-02-27 00:00:00 Completed [facility] DTAP 2003-02-27 00:00:00 Completed [facility] HIB 4 Dose Schedule 2003-02-27 00:00:00 Completed [facility] Hep B, Adol or Pedi Dosage 2003-02-27 00:00:00 Completed [facility] Polio (IPV/OPV) 2003-02-27 00:00:00 Completed [facility] DTAP 2003-02-27 00:00:00 Completed [facility] HIB 4 Dose Schedule 2003-02-27 00:00:00 Completed [facility] Hep B, Adol or Pedi Dosage 2003-02-27 00:00:00 Completed [facility] Polio (IPV/OPV) 2003-02-27 00:00:00 Completed [facility] DTAP 2003-02-27 00:00:00 Completed [facility] HIB 4 Dose Schedule 2003-02-27 00:00:00 Completed [facility] Hep B, Adol or Pedi Dosage 2003-02-27 00:00:00 Completed [facility] Polio (IPV/OPV) 2003-02-27 00:00:00 Completed [facility] DTAP 2003-02-27 00:00:00 Completed [facility] HIB 4 Dose Schedule 2003-02-27 00:00:00 Completed [facility] Hep B, Adol or Pedi Dosage 2003-02-27 00:00:00 Completed [facility] Polio (IPV/OPV) 2003-02-27 00:00:00 Completed [facility] DTAP 2003-02-27 00:00:00 Completed [facility] HIB 4 Dose Schedule 2003-02-27 00:00:00 Completed [facility] Hep B, Adol or Pedi Dosage 2003-02-27 00:00:00 Completed [facility] Polio (IPV/OPV) 2003-02-27 00:00:00 Completed [facility] DTAP 2003-02-27 00:00:00 Completed [facility] HIB 4 Dose Schedule 2003-02-27 00:00:00 Completed [facility] Hep B, Adol or Pedi Dosage 2003-02-27 00:00:00 Completed [facility] Polio (IPV/OPV) 2003-02-27 00:00:00 Completed [facility] DTAP 2003-02-27 00:00:00 Completed [facility] HIB 4 Dose Schedule 2003-02-27 00:00:00 Completed [facility] Hep B, Adol or Pedi Dosage 2003-02-27 00:00:00 Completed [facility] Polio (IPV/OPV) 2003-02-27 00:00:00 Completed [facility] DTAP 2003-02-27 00:00:00 Completed [facility] HIB 4 Dose Schedule 2003-02-27 00:00:00 Completed [facility] Hep B, Adol or Pedi Dosage 2003-02-27 00:00:00 Completed [facility] Polio (IPV/OPV) 2003-02-27 00:00:00 Completed [facility] DTAP 2003-02-27 00:00:00 Completed [facility] HIB 4 Dose Schedule 2003-02-27 00:00:00 Completed [facility] Hep B, Adol or Pedi Dosage 2003-02-27 00:00:00 Completed [facility] Polio (IPV/OPV) 2003-02-27 00:00:00 Completed [facility] DTAP 2003-02-27 00:00:00 Completed [facility] HIB 4 Dose Schedule 2003-02-27 00:00:00 Completed [facility] Hep B, Adol or Pedi Dosage 2002 00:00:00 Completed [facility] Hep B, Adol or Pedi Dosage 2002 00:00:00 Completed [facility] Hep B, Adol or Pedi Dosage 2002 00:00:00 Completed [facility] Hep B, Adol or Pedi Dosage 2002 00:00:00 Completed [facility] Hep B, Adol or Pedi Dosage 2002 00:00:00 Completed [facility] Hep B, Adol or Pedi Dosage 2002 00:00:00 Completed [facility] Hep B, Adol or Pedi Dosage 2002 00:00:00 Completed [facility] Hep B, Adol or Pedi Dosage 2002 00:00:00 Completed [facility] Hep B, Adol or Pedi Dosage 2002 00:00:00 Completed [facility] Hep B, Adol or Pedi Dosage 2002 00:00:00 Completed [facility] Hep B, Adol or Pedi Dosage 2002 00:00:00 Completed [facility] Hep B, Adol or Pedi Dosage 2002 00:00:00 Completed [facility] Hep B, Adol or Pedi Dosage 2002 00:00:00 Completed [facility] TDAP Unknown Completed [facility] DTAP Unknown Completed [facility] DTAP Unknown Completed [facility] DTAP Unknown Completed [facility] DTAP Unknown Completed [facility] DTAP Unknown Completed [facility] HIB 4 Dose Schedule Unknown Completed [facility] HIB 4 Dose Schedule Unknown Completed [facility] HIB 4 Dose Schedule Unknown Completed [facility] HIB 4 Dose Schedule Unknown Completed [facility] HEPATITIS A Unknown Completed [facility] HEPATITIS A Unknown Completed [facility] Hep B, Adol or Pedi Dosage Unknown Completed [facility] Hep B, Adol or Pedi Dosage Unknown Completed [facility] Hep B, Adol or Pedi Dosage Unknown Completed [facility] HPV Unknown Completed [facility] Meningococcal Polysaccharide (groups A, C, Y and W-135) conjugate vaccine (MCV4P) Unknown Completed [facility] MMR Unknown Completed [facility] Polio (IPV/OPV) Unknown Completed [facility] Polio (IPV/OPV) Unknown Completed [facility] Polio (IPV/OPV) Unknown Completed [facility] Polio (IPV/OPV) Unknown Com[address] [facility] Proquad (MMR/VARICELLA) Unknown Completed [facility] TDAP Unknown Completed [facility] TDAP Unknown Completed [facility] Varicella (varivax)(chicken pox) Unknown Completed [facility] Pneumococcal 7 Conjugate, PCV7 (Prevnar7) Unknown Completed [facility] HPV9 Unknown Completed [facility] Vital Signs Vital Name Observation Time Observation Value Comments S ource Systolic blood pressure 2023-09-06 19:35:00 112 mm[Hg] [facility] Diastolic blood pressure 2023-09-06 19:35:00 75 mm[Hg] [facility] Heart rate 2023-09-06 19:35:00 110 /min [facility] Body temperature 2023-09-06 19:35:00 37.56 Chari [facility] Respiratory rate 2023-09-06 19:35:00 14 /min [facility] Oxygen saturation in Arterial blood by Pulse oximetry 2023-09-06 19:35:00 99 /min [facility] Body height 2023-09-06 17:32:00 147.3 cm [facility] Body weight 2023-09-06 17:32:[address] [facility] BMI 2023-09-06 17:32:00 30.93 kg/m2 [facility] Systolic blood pressure 2023-01-26 14:43:00 101 mm[Hg] [facility] Diastolic blood pressure 2023-01-26 14:43:00 60 mm[Hg] [facility] Heart rate 2023-01-26 14:43:00 71 /min [facility] Body temperature 2023-01-26 14:43:00 36.44 Chari [facility] Respiratory rate 2023-01-26 14:43:00 18 /min [facility] Body height 2023-01-26 14:43:[address] [facility] Body weight 2023-01-26 14:43:[address] [facility] BMI 2023-01-26 14:43:00 43.82 kg/m2 [facility] Systolic blood pressure 2022-10-31 20:42:00 106 mm[Hg] [facility] Diastolic blood pressure 2022-10-31 20:42:00 74 mm[Hg] [facility] Heart rate 2022-10-31 20:42:00 68 /min [facility] Body temperature 2022-10-31 20:42:00 36.5 Chari [facility] Respiratory rate 2022-10-31 20:42:00 18 /min [facility] Body height 2022-10-31 20:42:00 147.3 cm [facility] Body weight 2022-10-31 20:42:[address] [facility] BMI 2022-10-31 20:42:00 29.89 kg/m2 [facility] Systolic blood pressure 2022-08-04 21:42:00 108 mm[Hg] [facility] Diastolic blood pressure 2022-08-04 21:42:00 70 mm[Hg] [facility] Heart rate 2022-08-04 21:42:00 74 /min [facility] Body temperature 2022-08-04 21:42:00 36.61 Chari [facility] Respiratory rate 2022-08-04 21:42:00 16 /min [facility] Body height 2022-08-04 21:42:[address] [facility] Body weight 2022-08-04 21:42:[address] [facility] BMI 2022-08-04 21:42:00 28.38 kg/m2 [facility] Systolic blood pressure 2022-05-02 16:11:00 109 mm[Hg] [facility] Diastolic blood pressure 2022-05-02 16:11:00 65 mm[Hg] [facility] Heart rate 2022-05-02 16:11:00 76 /min [facility] Body temperature 2022-05-02 16:11:00 36.72 Chari [facility] Respiratory rate 2022-05-02 16:11:00 18 /min [facility] Body height 2022-05-02 16:11:[address] [facility] Body weight 2022-05-02 16:11:[address] [facility] BMI 2022-05-02 16:11:00 29.89 kg/m2 [facility] Body mass index (BMI) [Percentile] Per age and sex 2022-05-02 16:11:00 93.49 % [facility] Systolic blood pressure 2022-01-21 20:35:00 110 mm[Hg] [facility] Diastolic blood pressure 2022-01-21 20:35:00 71 mm[Hg] [facility] Heart rate 2022-01-21 20:35:00 97 /min [facility] Respiratory rate 2022-01-21 20:35:00 18 /min [facility] Body height 2022-01-21 20:35:[address] [facility] Body weight 2022-01-21 20:35:[address] [facility] BMI 2022-01-21 20:35:00 30.93 kg/m2 [facility] Body mass index (BMI) [Percentile] Per age and sex 2022-01-21 20:35:00 94.89 % [facility] Systolic blood pressure 2021-10-21 20:41:00 107 mm[Hg] [facility] Diastolic blood pressure 2021-10-21 20:41:00 69 mm[Hg] [facility] Heart rate 2021-10-21 20:41:00 80 /min [facility] Body temperature 2021-10-21 20:41:00 36.83 Chari [facility] Respiratory rate 2021-10-21 20:41:00 18 /min [facility] Body height 2021-10-21 20:41:[address] [facility] Body weight 2021-10-21 20:41:[address] [facility] BMI 2021-10-21 20:41:00 29.47 kg/m2 [facility] Body mass index (BMI) [Percentile] Per age and sex 2021-10-21 20:41:00 93.37 % [facility] Procedures Procedure Date / Time Performed Performing Clinician Source ASSIGNMENT OF BENEFITS 2023-09-06 18:12:54 Docto r Unassigned, [place] [facility] RAPID STREP SCREEN FOR GROUP A 2023-09-06 18:06:00 Trisha Alaniz [facility] RAPID INFLUENZA A/B 2023-09-06 18:06:00 Trisha Alaniz [facility] COVID-19 (ID NOW RAPID TESTING) 2023-09-06 18:06:00 Trisha Alaniz [facility] NOTICE OF PRIVACY PRACTICES 2023-09-06 17:21:21 Doctor Unassigned, [place] [facility] CONSENT/REFUSAL FOR DIAGNOSIS AND TREATMENT 2023-09-06 17:20:14 Doctor Unassigned, [place] [facility] ASSIGNMENT OF BENEFITS 2023-09-06 17:19:46 Docto r Unassigned, [place] [facility] GARDASIL 9 (HPV 9V) VACCINE 2023-01-26 16:02:41 Espinoza [facility] PATIENT FINANCIAL POLICY 2023-01-26 14:28:24 Doctor Unassigned, [place] [facility] CONSENT FOR CONTRACEPTION 2022-10-31 06:01:00 Doctor Unassigned, [place] [facility] ASSIGNMENT OF BENEFITS 2022-05-02 15:52:47 Docto r Unassigned, [place] [facility] CONSENT FOR CONTRACEPTION 2021-10-21 06:01:00 Doctor Unassigned, [place] [facility] Encounters Start Date/Time End Date/Time Encounter Type Admission Type Attending [facility] Care Facility Care Department Encounter ID Source 2021-09-06 18:53:45 Outpatient P [facility] [id number] [facility] 2021-09-06 11:21:28 Outpatient P [facility] [id number] [facility] 2021-09-06 11:20:20 Outpatient [facility] [id number] [facility] 2024-05-10 07:15:00 2024-05-10 07:15:00 Outpatient R MICA CORTEZ [facility] [id number] [facility] 2024-02-15 07:45:00 2024-02-15 07:45:00 Outpatient R SILVINA GREGG [facility] [id number] [facility] 2024-02-01 09:30:00 2024-02-01 09:30:00 Outpatient R ESPINOZA GONSALES [facility] [id number] [facility] 2024-01-19 12:45:00 2024-01-19 12:45:00 Outpatient R MINNIE ARRIAGAOLA [facility] [id number] [facility] 2024-01-01 06:45:00 2024-01-01 06:45:00 Outpatient R DAVID DE LA GARZAKISHOREFARRAH [facility] [id number] [facility] 2023-12-25 09:00:00 2023-12-25 09:00:00 Outpatient R SILVINA GREGG [facility] [id number] [facility] 2023-09-06 12:34:00 2023-09-06 14:38:00 Emergency X TRISHA ALANIZ [facility] ERT [id number] [facility] 2023-09-06 12:34:00 2023-09-06 14:38:00 Emergency Trisha Alaniz [facility] [id number] [facility] 2023-07-24 15:00:00 2023-07-24 15:00:00 Outpatient R [facility] [id number] [facility] 2023-05-29 09:00:00 2023-05-29 09:00:00 Outpatient R ESPINOZA GONSALES [facility] [id number] [facility] 2023-05-05 15:00:00 2023-05-05 15:00:00 Outpatient R ESPINOZA GONSALES [facility] [id number] [facility] 2023-05-04 15:30:00 2023-05-04 15:30:00 Outpatient R [facility] [id number] [facility] 2023-04-28 09:00:00 2023-04-28 09:00:00 Outpatient R [facility] [id number] [facility] 2023-01-26 09:30:00 2023-01-26 10:08:05 Outpatient R ESPINOZA GONSALES [facility] [id number] [facility] 2023-01-26 09:30:00 2023-01-26 10:08:05 Office Visit [facility]alesEspino[facility] [id number]..840.114 [id number] 134 [id number] [facility] 2023-01-26 00:00:00 2023-01-26 00:00:00 Orders Only Doctor Unassigned, [place] [facility] 1..840.114 [id number] [facility] 2022-10-31 14:30:00 2022-10-31 14:44:24 Nurse Visit Nurse, [facility] 1..840.114 [id number] [facility] 2022-10-31 14:30:00 2022-10-31 14:30:00 Outpatient R GONSALESORIONEN [facility] [id number] [facility] 2022-10-31 00:00:00 2022-10-31 00:00:00 Orders Only Doctor Unassigned, [place] [facility] 1..840.114 [id number] [facility] 2022-10-29 10:30:00 2022-10-29 10:30:00 Outpatient R ESPINOZA GONSALES [facility] [id number] [facility] 2022-08-05 13:00:00 2022-08-05 13:00:00 Outpatient R [facility] [id number] [facility] 2022-08-04 15:00:00 2022-08-04 16:37:47 [facility] [id number] [facility] 2022-08-04 15:00:00 2022-08-04 15:00:00 Outpatient ESPINOZA HUANG [facility] [id number] [facility] 2022-07-25 10:00:00 2022-07-25 10:00:00 Outpatient ESPINOZA HUANG [facility] [id number] [facility] 2022-05-02 10:30:00 2022-05-02 11:11:21 Outpatient R SUSY [facility] [id number] [facility] 2022-05-02 10:30:00 2022-05-02 11:11:21 Nurse Visit Nurse, [facility] Susy Idalia [facility] 1.2.840.114 350.1.13.10 4.2.7.2.686 [id number] 134 [id number] [facility] 2022-05-02 00:00:00 2022-05-02 00:00:00 Orders Only Doctor Unassigned, [place] [facility] 1.2.840.114 350.1.13.10 4.2.7.2.686 [id number] [id number] [facility] 2022-04-25 14:00:00 2022-04-25 14:00:00 Outpatient R [facility] [id number] [facility] 2022-04-23 10:30:00 2022-04-23 10:30:00 Outpatient R [facility] [id number] [facility] 2022-03-03 02:49:00 2022-03-03 02:49:00 Outpatient BHARAT_VINICIUS REA [facility] [id number] Kelly da [facility] 2022-01-21 15:00:00 2022-01-21 15:36:32 Outpatient R PINA GONSALES [facility] [id number] General acute hospital 2022-01-21 15:00:00 2022-01-21 15:36:32 Nurse Visit Nurse, [facility] Lucy Gonsalesarna [facility] 1..840.114 350.1.13.10 4.2.7.2.686 [id number] 134 [id number] [facility] 2022-01-20 10:00:00 2022-01-20 10:00:00 Outpatient R [facility] [id number] [facility] 2021-10-21 14:30:56 2021-10-21 15:01:51 Office Visit Susy Idalia [facility] 1..840.114 350.1.13.10 4.2.7.2.686 [id number] 134 [id number] [facility] 2021-10-21 14:30:00 2021-10-21 15:01:51 Outpatient R SUSY [facility] [id number] [facility] 2021-10-21 00:00:00 2021-10-21 00:00:00 Orders Only Doctor Unassigned, [place] [facility] 1..840.114 350.1.13.10 4.2.7.2.686 [id number] [facility] 2021-07-25 14:00:00 2021-07-25 14:00:00 Outpatient R ESPINOZA GONSALES [facility] [id number] [facility] 2021-07-25 13:41:25 2021-07-25 13:56:25 Nurse Visit Nurse, [facility] Wagner Espinoza [facility] 1..840.114 350.1.13.10 4.2.7.2.686 [id number] 134 [id number] [facility] 2021-07-17 14:30:00 2021-07-17 14:30:00 Outpatient R [facility] [id number] [facility] 2021-07-16 09:00:00 2021-07-16 09:00:00 Outpatient R [facility] [id number] [facility] 2021-04-17 10:30:00 2021-04-17 10:30:00 Outpatient R [facility] [id number] [facility] 2021-04-17 10:12:23 2021-04-17 10:27:27 Nurse Visit Nurse, [facility] Wagner Espinoza [facility] 1..840.114 350.1.13.10 4.2.7.2.686 [id number] 134 [id number] [facility] 2021-04-17 00:00:00 2021-04-17 00:00:00 Orders Only Doctor Unassigned, [place] [facility] 1..840.114 350.1.13.10 4.2.7.2.686 [id number] [id number] [facility] 2021-04-15 10:00:00 2021-04-15 10:00:00 Outpatient R [facility] [id number] [facility] 2021-01-21 14:27:19 2021-01-21 14:51:33 Nurse Visit Nurse, [facility] Wagner Espinoza [facility] 1..840.114 350.1.13.10 4.2.7.2.686 [id number] 134 [id number] [facility] 2021-01-21 14:30:00 2021-01-21 14:30:00 Outpatient R ESPINOZA GONSALES [facility] [id number] [facility] 2020-12-05 00:00:00 2020-12-05 00:00:00 Telephone Espinoza Gonsales [facility] 1..840.114 350.1.13.10 4.2.7.2.686 [id number] 134 [id number] [facility] 2020-10-18 14:23:45 2020-10-18 15:01:18 Office Visit Idalia Jain [facility] 1.840.114 350.1.13.10 4.2.7.2.686 [id number] [facility] 2020-10-18 14:30:00 2020-10-18 14:30:00 Outpatient R IDALIA JAIN [facility] [id number] [facility] 2020-10-18 00:00:00 2020-10-18 00:00:00 Orders Only Doctor Unassigned, [place] [facility] 1..114 350.1.13.10 4.2.7.2.686 [id number] [id number] [facility] 2020-08-28 11:30:00 2020-08-28 11:30:00 Outpatient R IDALIA JAIN [facility] [id number] [facility] 2020-08-06 10:36:00 2020-08-09 12:53:00 Hospital Encounter Espinoza Gonsales [facility] 1..114 350.1.13.10 4.2.7.2.686 [id number] [facility] 2020-08-06 00:00:00 2020-08-06 00:00:00 Telephone Espinoza Gonsales [facility] Building 1..114 350.1.13.10 4.2.7.2.686 [id number] 134 [id number] [facility] 2020-08-02 16:02:54 2020-08-02 16:17:54 Laboratory Only Only, Adc Test Espinoza Gonsalse [facility] 1.0.114 350.1.13.10 4.2.7.2.686 [id number] [facility] 2020-08-02 15:45:00 2020-08-02 15:45:00 Outpatient R [facility] [id number] [facility] 2020-08-02 11:15:00 2020-08-02 11:15:00 Outpatient R [facility] [id number] [facility] 2020-07-31 15:57:47 2020-07-31 16:22:49 Routine Visit Espinoza Gonsales [facility] Building 1.2.840.114 350.1.13.10 4.2.7.2.686 [id number] 134 [id number] [facility] 2020-07-31 15:45:00 2020-07-31 15:45:00 [facility] [id number] 2020-07-24 16:15:00 2020-07-24 16:15:00 [facility] [id number] [facility] 2020-07-19 11:45:00 2020-07-19 11:45:00 Outpatient R [facility] [id number] [facility] 2020-07-17 16:32:23 2020-07-17 16:47:23 Routine Visit Idalia Jain [facility] 1.2.840.114 350.1.13.10 4.2.7.2.686 [id number] 134 [id number] [facility] 2020-07-17 16:15:00 2020-07-17 16:15:00 [facility] [id number] 2020-07-10 15:30:00 2020-07-10 15:30:00 Outpatient R GONSALES ESPINOZA [facility] [id number] [facility] 2020-07-10 10:15:00 2020-07-10 10:15:00 Outpatient R [facility] [id number] [facility] 2020-07-09 15:55:06 2020-07-09 17:36:35 Routine Visit Espinoza Gonsales [facility] 1.2.840.114 350.1.13.10 4.2.7.2.686 [id number] 134 [id number] [facility] 2020-07-09 15:45:00 2020-07-09 15:45:00 [facility] [id number] 2020-07-09 00:00:00 2020-07-09 00:00:00 Orders Only Doctor Unassigned, [place] [facility] 1.2840.114 350.1.13.10 4.2.7.2.686 [id number] [facility] 2020-07-02 14:00:00 2020-07-02 14:00:00 [facility] [id number] [facility] 2020-06-27 00:00:00 2020-06-27 00:00:00 Telephone Constantineazeem [facility] 1.2.840.114 350.1.13.10 4.2.7.2.686 [id number] 134 [id number] [facility] 2020-06-19 00:00:00 2020-06-19 00:00:00 Letter (Out) Espinoza Gonsales [facility] 1.2.840.114 350.1.13.10 4.2.7.2.686 [id number] 134 [id number] [facility] 2020-06-19 00:00:00 2020-06-19 00:00:00 Orders Only Doctor Unassigned, [place] [facility] 1.2.840.114 350.1.13.10 4.2.7.2.686 [id number] [id number] [facility] 2020-06-18 15:58:50 2020-06-18 16:39:24 Routine Visit Idalia Jain [facility]al Building 1.2.840.114 350.1.13.10 4.2.7.2.686 [id number] [facility] 2020-06-18 15:45:00 2020-06-18 15:45:00 Outpatient R IDALIA JAIN [facility] [id number] [facility] 2020-06-18 00:00:00 2020-06-18 00:00:00 Orders Only Doctor Unassigned, [place] [facility] 1.2.840.114 350.1.13.10 4.2.7.2.686 [id number] [facility] 2020-06-15 23:55:00 2020-06-16 10:40:00 Hospital Encounter Peg Ndiaye [facility] 1.2840.114 350.1.13.10 4.2.7.2.686 [id number] [facility] 2020-06-08 00:00:00 2020-06-08 00:00:00 Telephone Idalia Jain [facility] 1.2.840.114 350.1.13.10 4.2.7.2.686 [id number] 134 [id number] [facility] 2020-06-06 13:11:28 2020-06-06 14:01:53 Workplace Rehabilitation Officer Visit Ultrasound, Hardik Bryant [facility] ROTARY SURFACE [facility] 1.2.840.114 350.1.13.10 4.2.7.2.686 [id number] [facility] 2020-06-06 13:00:00 2020-06-06 13:00:00 Outpatient P [facility] [id number] [facility] 2020-06-04 13:17:41 2020-06-04 13:48:54 [facility] 1.2.840.114 350.1.13.10 4.2.7.2.686 [id number] 134 [id number] [facility] 2020-06-04 13:00:00 2020-06-04 13:00:00 Outpatient R ESPINOZA GONSALES [facility] [id number] [facility] 2020-05-29 00:00:00 2020-05-29 00:00:00 Telephone Espinoza Gonsales [facility] [place] [facility] Building 1.2.840.114 350.1.13.10 4.2.7.2.686 [id number] 134 [id number] [facility] 2020-05-25 00:00:00 2020-05-25 00:00:00 Telephone Espinoza Gonsales [facility] [place] [facility] 1.2.840.114 350.1.13.10 4.2.7.2.686 [id number] 134 [id number] [facility] 2020-05-24 00:00:00 2020-05-24 00:00:00 Telephone Espinoza Gonsales [facility] [place] [facility] 1.2.840.114 350.1.13.10 4.2.7.2.686 [id number] 134 [id number] [facility] 2020-05-23 00:00:00 2020-05-23 00:00:00 Telephone Espinoza Gonsales [facility] Annika Perez [facility] 1.2.840.114 350.1.13.10 4.2.7.2.686 [id number] 134 [id number] [facility] 2020-05-09 13:23:12 2020-05-09 13:38:12 Workplace Rehabilitation Officer Visit 2, Adc Lab Espinoza Gonsales [facility] [place] [facility] 1.2.840.114 350.1.13.10 4.2.7.2.686 [id number] [facility] 2020-05-09 13:00:00 2020-05-09 13:00:00 Outpatient R [facility] [id number] [facility] 2020-05-07 15:01:11 2020-05-08 17:04:04 Initial [facility] 1.2.840.114 350.1.13.10 4.2.7.2.686 [id number] 134 [id number] [facility] 2020-05-08 00:00:00 2020-05-08 00:00:00 Case Management Espinoza Gonsales [facility] Building 1.2.840.114 350.1.13.10 4.2.7.2.686 [id number] 134 [id number] [facility] 2020-05-08 00:00:00 2020-05-08 00:00:00 Case Management Espinoza Gonsales [facility] Building 1.2.840.114 350.1.13.10 4.2.7.2.686 [id number] 134 [id number] [facility] 2020-05-07 14:15:00 2020-05-07 14:15:00 Outpatient R ESPINOZA GONSALES [facility] [id number] [facility] 2020-05-07 00:00:00 2020-05-07 00:00:00 Orders Only Doctor Unassigned, [place] [facility] 1.284.114 350.1.13.10 4.2.7.2.686 [id number] [facility] 2020-04-23 00:00:00 2020-04-23 00:00:00 Telephone Espinoza Gonsales [facility] Building 1.2.840.114 350.1.13.10 4.2.7.2.686 [id number] [facility] 2020-04-16 11:00:00 2020-04-16 11:00:00 [facility] [id number] [facility] 2018-04-11 20:58:00 2018-04-11 21:43:00 Emergency PEG [facility] [id number] [facility] Results Test Description Test Time Test Comments [...]
--- NOTE | 2024-05-18 20:58 | EDPHYS ---
Physician Documentation [facility] Name: Vijaya Farooq Age: 23 yrs Sex: Female : 2000 Arrival Date: 05/18/2024 Time: 19:29 Bed 20 Private MD: ED Physician Deshaun Shaffer HPI: 05/18 20:05 This 23 yrs old Female presents to ER via Unassigned with complaints of PT sp4 STATES SHE HAS A TAMPON STUCK. 05/19 07:32 23-year-old female presents with complaint of vaginal foreign body since yesterday. sp4 Patient states she thinks she may have a retained vaginal tampon. . Historical: - Allergies: 05/18 20:08 No Known Allergies; tl4 - Home Meds: 20:08 None [Active]; tl4 - PMHx: 20:08 None; tl4 - PSHx: 20:08 None; tl4 - Immunization history:: Adult Immunizations unknown. - Infectious Disease History:: Denies. - Social history:: Smoking status: Patient denies any tobacco usage or history of. - Family history:: not pertinent. ROS: 05/19 07:32 Constitutional: Negative for fever, chills, and weight loss, positive for retained sp4 vaginal tampon All other systems are negative, Exam: 07:32 Constitutional: This is a well developed, well nourished patient who is awake, alert, sp4 and in no acute distress. Head/Face: Normocephalic, atraumatic. Eyes: Pupils equal round and reactive to light, extra-ocular motions intact. Lids and lashes normal. Conjunctiva and sclera are not injected. Cornea within normal limits. Periorbital areas with no swelling, redness, or edema. ENT: Nares patent. No nasal discharge, no septal abnormalities noted. Tympanic membranes are normal and external auditory canals are clear. Oropharynx with no redness, swelling, or masses, exudates, or evidence of obstruction, uvula midline. Mucous membranes moist. Neck: Trachea midline, no thyromegaly or masses palpated, and no cervical lymphadenopathy. Supple, full range of motion without nuchal rigidity, or vertebral point tenderness. Chest/axilla: Normal chest wall appearance and motion. Nontender with no deformity. No lesions are appreciated. Cardiovascular: Regular rate and rhythm with a normal S1 and S2. No gallops, murmurs, or rubs. Normal PMI, no JVD. No pulse deficits. Respiratory: Lungs have equal breath sounds bilaterally, clear to auscultation and percussion. No rales, rhonchi or wheezes noted. No increased work of breathing, no retractions or nasal flaring. Abdomen/GI: Soft, with normal bowel sounds. No distension or tympany. No guarding or rebound. No evidence of tenderness throughout. Back: No spinal tenderness. No costovertebral tenderness. Pelvic Exam: Normal external genitalia. Speculum exam -there he is retained vaginal tampon saturated with blood. Tampon was removed with forceps. Finger sweep with bimanual exam reveals no further retained vaginal foreign bodies. Skin: Warm, dry with normal turgor. Normal color with no rashes, no lesions, and no evidence of cellulitis. MS/ Extremity: Pulses equal, no cyanosis. Neurovascular intact. Full, normal range of motion. Neuro: Awake and alert, GCS 15, oriented to person, place, time, and situation. Cranial nerves II-XII grossly intact. Motor strength 5/5 in all extremities. Sensory grossly intact. Vital Signs: 05/18 20:06 BP 124 / 75; Pulse 75; Resp 16; Temp 97.9(TE); Pulse Ox 100% on R/A; Weight 65.32 kg; tl4 Height 4 ft. 9 in. ; Pain 6/10; 21:00 BP 122 / 71; Pulse 70; Resp 16; Temp 97.9; Pulse Ox 100% ; jj7 20:06 Body Mass Index 31.16 (65.32 kg, 144.78 cm) tl4 20:06 Pain Scale: Adult tl4 Struthers Coma Score: 05/19 07:32 Eye Response: spontaneous(4). Motor Response: obeys commands(6). Verbal Response: sp4 oriented(5). Total: 15. Procedures: 07:32 Foreign Body Removal: a tampon, from the vagina, by Forceps . The patient tolerated the sp4 removal well, No complications . MDM: 05/18 20:17 Patient medically screened. sp4 05/19 07:35 Differential Diagnosis Retained vaginal foreign body. Data reviewed: vital signs, sp4 nurses notes. ED course: Patient stable for discharge home. Administered Medications: No medications were administered Disposition Summary: 05/18/24 20:57 Discharge Ordered Notes: Location: Home sp4 Problem: new sp4 Condition: Stable sp4 Diagnosis - Retained vaginal foreign body sp4 Followup: sp4 - With: Private Physician - When: As needed - Reason: Discharge Instructions: - Discharge Summary Sheet sp4 - Vaginal Foreign Body, [id number] sp4 Forms: - Patient Portal Instructions sp4 Signatures: Deshaun Shaffer MD MD sp4 Ubaldo Saba RN RN tl4
--- NOTE | 2024-05-18 20:58 | ER ---
Nurse's Notes [facility] Name: Vijaya Farooq Age: 23 yrs Sex: Female : 2000 Arrival Date: 05/18/2024 Time: 19:29 Bed 20 Private MD: Diagnosis: Retained vaginal foreign body Presentation: 05/18 20:06 Chief complaint: Patient states: Pt states she thinks she has a tampon stuck inside of tl4 her since last night. Pt states she can't feel the string. Pt also c/o pain and strong odor. Coronavirus screen: At this time, the client does not indicate any symptoms associated with coronavirus-19. Ebola Screen: No symptoms or risks identified at this time. Initial Sepsis Screen: Does the patient meet any 2 criteria? No. Patient's initial sepsis screen is negative. Does the patient have a suspected source of infection? No. Patient's initial sepsis screen is negative. Risk Assessment: Do you want to hurt yourself or someone else? Patient reports no desire to harm self or others. Onset of symptoms was May 17, 2024. 20:06 Method Of Arrival: Ambulatory tl4 20:06 Acuity: ROBI 3 tl4 Triage Assessment: 20:09 General: Appears in no apparent distress. Behavior is calm, cooperative. Pain: tl4 Complains of pain in pelvis. EENT: No signs and/or symptoms were reported regarding the EENT system. Neuro: Level of Consciousness is awake, alert, obeys commands, Oriented to person, place, time, situation. Cardiovascular: Capillary refill < 3 seconds Patient's skin is warm and dry. Respiratory: Airway is patent Respiratory effort is even, unlabored, Respiratory pattern is regular, symmetrical. GI: No signs and/or symptoms were reported involving the gastrointestinal system. : Reports tampon in vagina. Derm: No signs and/or symptoms reported regarding the dermatologic system. Musculoskeletal: No signs and/or symptoms reported regarding the musculoskeletal system. Historical: - Allergies: 20:08 No Known Allergies; tl4 - Home Meds: 20:08 None [Active]; tl4 - PMHx: 20:08 None; tl4 - PSHx: 20:08 None; tl4 - Immunization history:: Adult Immunizations unknown. - Infectious Disease History:: Denies. - Social history:: Smoking status: Patient denies any tobacco usage or history of. - Family history:: not pertinent. Screenin:00 [facility] ED Fall Risk Assessment (Adult) History of falling in the last 3 months, jj7 including since admission No falls in past 3 months (0 pts) Confusion or Disorientation No (0 pts) Intoxicated or Sedated Yes (3 pts) Impaired Gait No (0 pts) Mobility Assist Device Used No (0 pt) Altered Elimination No (0 pt) Score/Fall Risk Level 0 - 2 = Low Risk Oriented to surroundings, Maintained a safe environment, Educated pt \T\ family on fall prevention, incl call for assistance when getting out of bed. Abuse screen: Denies threats or abuse. Abuse screen: Denies threats or abuse. Nutritional screening: No deficits noted. Tuberculosis screening: No symptoms or risk factors identified. Assessment: 21:01 General: Appears in no apparent distress. Behavior is calm, cooperative. Pain: Denies tm6 pain. Neuro: Level of Consciousness is awake, alert, obeys commands, Oriented to person, place, time, situation. Cardiovascular: Patient's skin is warm and dry. Respiratory: Airway is patent Respiratory effort is even, unlabored, Respiratory pattern is regular, symmetrical. GI: No signs and/or symptoms were reported involving the gastrointestinal system. Abdomen is flat, non-distended. : Reports foreign body in vagina. EENT: No signs and/or symptoms were reported regarding the EENT system. Derm: No signs and/or symptoms reported regarding the dermatologic system. Musculoskeletal: No signs and/or symptoms reported regarding the musculoskeletal system. Vital Signs: 20:06 BP 124 / 75; Pulse 75; Resp 16; Temp 97.9(TE); Pulse Ox 100% on R/A; Weight 65.32 kg; tl4 Height 4 ft. 9 in. ; Pain 04/18; 21:00 BP 122 / 71; Pulse 70; Resp 16; Temp 97.9; Pulse Ox 100% ; jj7 20:06 Body Mass Index 31.16 (65.32 kg, 144.78 cm) tl4 20:06 Pain Scale: Adult tl4 Emigdio Coma Score: 05/19 07:32 Eye Response: spontaneous(4). Motor Response: obeys commands(6). Verbal Response: sp4 oriented(5). Total: 15. ED Course: 05/18 19:32 Patient arrived in ED. gm2 20:05 Deshaun Shaffer MD is Attending Physician. sp4 20:08 Triage completed. tl4 20:09 Arm band placed on right wrist. tl4 21:00 Patient has correct armband on for positive identification. Placed in gown. Call light lucero in reach. Provided Education on:. 21:00 Assist provider with pelvic exam: Set up pelvic tray. Performed by Deshaun [email or web address] Patient tolerated well. Patient did not have IV access during this emergency room visit. 21:01 Kurt Davis, RN is Primary Nurse. tm6 Administered Medications: No medications were administered Medication: 21:00 VIS not applicable for this client. jj7 Outcome: 20:57 Discharge ordered by . sp4 21:00 Discharged to home ambulatory, jj7 21:00 Condition: improved 21:00 Discharge instructions given to patient, Instructed on discharge instructions, follow up and referral plans. Demonstrated understanding of instructions, follow-up care, 21:03 Patient left the ED. jj7 Signatures: Angélica Mckeon RN RN jjDeshaun Arriaza MD MD sp4 Gemini Salmeron gm2 Kurt Davis, FITZ RN tm6 Ubaldo Saba RN RN tl4
[2024-05-19 02:29] VITALS: BP 122/71; TEMP 97.9; O2SAT 100
== END 2024-05-18 21:03 | disposition home or self-care (01) ==
LOC: ER 19:29
DX: T19.2XXA Foreign body in vulva and vagina, initial encounter (principal)
CPT/HCPCS: 99283

== ENCOUNTER 2024-10-23 11:12 | Emergency (ER) | payer SELFPAY ==
--- OUTSIDE RECORDS SUMMARY | 2024-10-23 11:17 | XMS REPORT | Continuity of Care Document ---
Author Name Unknown Address [address] [facility] [address] [place] [address] [facility] Address [address] [facility] [place] [address] Care Team Providers Care Utility Clerk Name Role Phone Pcp, Patient Does Not Have A Primary Care Physic kate MICA TONY Attending Clinician Unavailable Mica Ambriz Attending Clinician [phone] Alma Wheat Attending Clinician + ALMA BUSCH Attending Clinician Unavail able Visit, [facility] Nurse Attending Clinician Unava ilSymone Byers CNM Attending Clinician [phone] Symone Gregg CNM Attending Clinician [phone] SYMONE GREGG Attending Clinician Unavaila ESPINOZA Conner Attending Clinician Unavailable MEE DE LA GARZA Attending Clinician Unavail able CAITLYN DE LA VEGA Attending Clinician Unavailab TRISHA Leiva Attending Clinician Unavailable Trisha Sanon Attending Clinician [phone] Espinoza Gonsales MD Attending Clinician [phone] Doctor Unassigned, [place] Attending Clinician U yudith Velásquez, [facility] Attending Clinician Un available IDALIA JAIN Attending Clinician Unavailable Idalia Jain PA-C Attending Clinician [phone] NOVA Attending Clinician Unavailable PINA GONSALES Attending Clinician Unavailable Pina Healy Attending Clinician [phone] Only, Adc Test Attending Clinician Unavailable Peg Ndiaye MD Attending Clinician [phone] Ultrasound, Ang-M[facility] Attending Clinician UnavailHardik Solomon MD Attending Clinician [phone], [facility] Lab Attending Clinician Unavailable DR PEG MORRIS Attending Clinician Unavailable ESPINOZA GONSALES Admitting Clinician Unavailable PEG NDIAYE Admitting Clinician Unavailwayne NICHOLSON_COURTNEY Admitting Clinician Unavailable Dru HOOKER, Espinoza Osman Admitting Clinician [phone] Peg Ndiaye MD Admitting Clinician [phone] DR PEG MORRIS Admitting Clinician Unavailable Payers Payer Name Policy Type Policy Number Effective Date Expirati on Date Source [facility] [id number] 2020 00:00:00 [facility] [id number] 2023 00:00:00 Problems Condition Name Condition Details Condition Category Status Onset Date Resolution Date Last Treatment Date Treating Clinician Comments Source Encounter for other general counseling or advice on contracept ion Encounter for other general counseling or advice on contracept ion Disease Active 2023-11 0-23 00:00: 00 [facility] No known active problems No known active problems Disease [facility] Acute urinary retention Acute urinary retention Disease Resolve d 2019-1 0-01 00:00: 00 2020-10-18 00:00:00 2020-10-18 14:30:44 [facility] Anemia, antepartum , third trimester Anemia, antepartum , third trimester Disease Resolve d 2019-0 9-30 00:00: 00 2020-10-18 00:00:00 2020-10-18 14:30:44 [facility] Liveborn , of kw[place] , born in hospital by vaginal delivery Liveborn infant, of kwok , born in hospital by vaginal delivery Disease Resolve d 2019-0 9-29 00:00: 00 2020-10-18 00:00:00 2020-10-18 14:30:44 [facility] Encounter for elective induction of labor Encounter for elective induction of labor Disease Resolve d 2019-0 9-28 00:00: 2020-10-18 00:00:00 2020-10-18 14:49:49 [facility] 40 weeks gestation of 40 weeks gestation of Disease Resolve d 0 9-28 00:00: 00 2020-10-18 00:00:00 2020-10-18 14:30:44 [facility] Supervisio n of high-risk with insufficie nt care, third trimester Supervisio n of high-risk with insufficie nt care, third trimester Disease Resolve d 0 8-31 00:00: 00 2020-10-18 00:00:00 2020-10-18 14:49:48 [facility] Chlamydia trachomati s infection of lower genitourin yesenia sites Chlamydia trachomati s infection of lower genitourin yesenia sites Disease Resolve d 6-30 00:00: 00 2020-08-06 00:00:00 2020-08-06 17:37:49 [facility] Allergies, Adverse Reactions, Alerts Allergy Name Allergy Type Status Severity Reaction(s) Onset Date Inactive Date Treating Clinician Comments Source NO KNOWN ALLERGIE S Drug Class Active [facility] Social History Social Habit Start Date Stop Date Quantity Comments Source [facility]OH Alcohol [facility] History SDOH Alcohol Binge [facility] History SDOH Alcohol Comment [place] [facility] Alcoholic beverage intake 2024-10-21 00:00:00 2024-10-21 00:00:00 Lifetime non-drinker (finding) [facility] History of Social function 2024-07-01 00:00:00 2024-07-01 00:00:[address] [facility] Alcohol intake 2023-09-06 00:00:00 2023-09-06 00:00:00 Lifetime non-drinker (finding) [facility] Exposure to SARS-CoV-2 (event) 2023-01-16 00:00:00 2023-01-26 09:25:[address] [facility] Tobacco use and exposure 2022-08-04 00:00:00 2022-08-04 00:00:00 Smokeless tobacco non-user [facility] History SDOH Alcohol Frequency 2020-05-07 00:00:00 2020-05-07 00:00:[address] [facility] Sex assigned at 2000 00:00:00 2002 00:00:[address] [facility] Smoking Status Start Date Stop Date Source Never smoked tobacco [facility] Medications Ordered Medication Name Filled Medication Name Start Date Stop Date Current Medication? Ordering Clinician Indication Dosage Frequency Signature (SIG) Comments Components Source metroNIDAZO LE 500 mg tablet 2023-11 2- 00:00: 00 Yes [id number] 500mg Take 1 tablet by mouth every 12 (twelve) hours. [facility] metroNIDAZO LE 500 mg tablet 2023-11 024 00:00: 00 10-21 00:00 :00 No [id number] 500mg Take 1 tablet by mouth in the morning and 1 tablet in the evening. [facility] metroNIDAZO LE 500 mg tablet 8- 00:00: 00 10-21 00:00 :00 No [id number] 500mg Take 1 tablet by mouth every 12 (twelve) hours. [facility] metroNIDAZO LE 500 mg tablet 8- 00:00: 00 06-17 04:59 :00 No [id number] 500mg Take 1 tablet by mouth in the morning and 1 tablet in the evening. Do all this for 7 days. [facility] medroxyPROG ESTERone (DEPO-PROVE RA) syringe 150 mg 06-08 14:30: 00 08-02 14:29 :00 No [id number] 150mg 150 mg, Intramuscu lar, [id number], 5 doses, First dose on Thu06/08/24 at 0930, Last dose on Thu05/10/25 at 0930, Routine [facility] oseltamivir (TAMIFLU) 75 mg capsule 2022-11 00:00: 00 06-08 00:00 :00 No [id number] 75mg Take 1 capsule by mouth in the morning and 1 capsule in the evening. [facility] medroxyPROG ESTERone (DEPO-PROVE RA) syringe 150 mg 3-20 17:00: 01-26 16:03 :00 No [id number] [facility] medroxyPROG ESTERone (DEPO-PROVE RA) syringe 150 mg 2021-11 21:30: 00 10-31 20:44 :00 No [id number] [facility] (DEPO-PROVE RA) syringe 150 mg 6-24 17:15: 05-02 16:17 :00 No [id number] [facility]ERone (DEPO-PROVE RA) syringe 150 mg 3-15 21:45: 00 01-21 20:37 :00 No [id number] [facility] medroxyPROG ESTERone (DEPO-PROVE RA) syringe 150 mg 2020-11 21:45: 00 10-21 20:59 :00 No [id number] 150mg [facility] vitamin w/FA tablet 2019-11 00:00: 00 01-26 00:00 :00 No [id number] 1{tbl} Take 1 tablet by mouth daily. [facility] docusate calcium 240 mg capsule 2019-11 0 00:00: 00 01-26 00:00 :00 No [id number] 240mg Take 1 capsule by mouth once daily as needed for Constipati on. [facility] ferrous sulfate 325 mg (65 mg iron) tablet 2019-11 00:00: 01-26 00:00 :00 No [id number] 325mg Take 1 tablet by mouth 2 (two) times daily. [facility] ibuprofen 600 mg tablet 2019-11 0 00:0001-26 00:00 :00 No [id number] 600mg Take 1 tablet by mouth every 6 (six) hours as needed (Pain). Take with food or milk. [facility] Immunizations Ordered Immunization Name Filled Immunization Name Date Status Comments Source HPV9 2023-01-26 00:00:00 Completed [facility] 2023-01-26 00:00:[address] [facility] TDAP 2020-06-04 00:00:[address] [facility] TDAP 2020-06-04 00:00:[address] [facility] TDAP 2020-06-04 00:00:[address] [facility] TDAP 2020-06-04 00:00:[address] [facility] TDAP 2020-06-04 00:00:[address] [facility] TDAP 2020-06-04 00:00:[address] [facility] TDAP 2020-06-04 00:00:[address] [facility] TDAP 2020-06-04 00:00:[address] [facility] TDAP 2020-06-04 00:00:[address] [facility] TDAP 2020-06-04 00:00:[address] [facility] TDAP 2020-06-04 00:00:[address] [facility] TDAP 2018-02-26 00:00:[address] [facility] TDAP 2018-02-26 00:00:[address] [facility] TDAP 2018-02-26 00:00:[address] [facility] TDAP 2018-02-26 00:00:[address] [facility] TDAP 2018-02-26 00:00:[address] [facility] TDAP 2018-02-26 00:00:[address] [facility] TDAP 2018-02-26 00:00:[address] [facility] TDAP 2018-02-26 00:00:[address] [facility] TDAP 2018-02-26 00:00:00 Completed TDAP 2018-02-26 00:00:[address] [facility] TDAP 2018-02-26 00:00:[address] [facility] HPV 2015-05-03 00:00:[address] [facility] Meningococcal Polysaccharide (groups A, C, Y and W-135) conjugate vaccine (MCV4P) 2015-05-03 00:00:[address] [facility] TDAP 2015-05-03 00:00:[address] [facility] HPV 2015-05-03 00:00:[address] [facility] Meningococcal Polysaccharide (groups A, C, Y and W-135) conjugate vaccine (MCV4P) 2015-05-03 00:00:[address] [facility] TDAP 2015-05-03 00:00:[address] [facility] HPV 2015-05-03 00:00:[address] [facility] Meningococcal Polysaccharide (groups A, C, Y and W-135) conjugate vaccine (MCV4P) 2015-05-03 00:00:[address] [facility] TDAP 2015-05-03 00:00:[address] [facility] HPV 2015-05-03 00:00:[address] [facility] Meningococcal Polysaccharide (groups A, C, Y and W-135) conjugate vaccine (MCV4P) 2015-05-03 00:00:[address] [facility] TDAP 2015-05-03 00:00:[address] [facility] HPV 2015-05-03 00:00:[address] [facility] Meningococcal Polysaccharide (groups A, C, Y and W-135) conjugate vaccine (MCV4P) 2015-05-03 00:00:[address] [facility] TDAP 2015-05-03 00:00:[address] [facility] HPV 2015-05-03 00:00:[address] [facility] Meningococcal Polysaccharide (groups A, C, Y and W-135) conjugate vaccine (MCV4P) 2015-05-03 00:00:[address] [facility] TDAP 2015-05-03 00:00:[address] [facility] HPV 2015-05-03 00:00:[address] [facility] Meningococcal Polysaccharide (groups A, C, Y and W-135) conjugate vaccine (MCV4P) 2015-05-03 00:00:[address] [facility] TDAP 2015-05-03 00:00:[address] [facility] HPV 2015-05-03 00:00:[address] [facility] Meningococcal Polysaccharide (groups A, C, Y and W-135) conjugate vaccine (MCV4P) 2015-05-03 00:00:[address] [facility] TDAP 2015-05-03 00:00:[address] [facility] HPV 2015-05-03 00:00:00 Completed Meningococcal Polysaccharide (groups A, C, Y and W-135) conjugate vaccine (MCV4P) 2015-05-03 00:00:00 Completed TDAP 2015-05-03 00:00:00 Completed HPV 2015-05-03 00:00:[address] [facility] Meningococcal Polysaccharide (groups A, C, Y and W-135) conjugate vaccine (MCV4P) 2015-05-03 00:00:[address] [facility] TDAP 2015-05-03 00:00:[address] [facility] HPV 2015-05-03 00:00:[address] [facility] Meningococcal Polysaccharide (groups A, C, Y and W-135) conjugate vaccine (MCV4P) 2015-05-03 00:00:[address] [facility] TDAP 2015-05-03 00:00:[address] [facility] HEPATITIS A 2008-03-29 00:00:[address] [facility] HEPATITIS A 2008-03-29 00:00:[address] [facility] HEPATITIS A 2008-03-29 00:00:[address] [facility] HEPATITIS A 2008-03-29 00:00:[address] [facility] HEPATITIS A 2008-03-29 00:00:[address] [facility] HEPATITIS A 2008-03-29 00:00:[address] [facility] HEPATITIS A 2008-03-29 00:00:[address] [facility] HEPATITIS A 2008-03-29 00:00:00 Completed HEPATITIS A 2008-03-29 00:00:[address] [facility] HEPATITIS A 2008-03-29 00:00:[address] [facility] HEPATITIS A 2008-03-29 00:00:[address] [facility] Polio (IPV/OPV) 2007-06-09 00:00:[address] [facility] Proquad (MMR/VARICELLA) 2007-06-09 00:00:[address] [facility] DTAP 2007-06-09 00:00:[address] [facility] HEPATITIS A 2007-06-09 00:00:[address] [facility] Polio (IPV/OPV) 2007-06-09 00:00:[address] [facility] Proquad (MMR/VARICELLA) 2007-06-09 00:00:[address] [facility] DTAP 2007-06-09 00:00:[address] [facility] HEPATITIS A 2007-06-09 00:00:[address] [facility] Polio (IPV/OPV) 2007-06-09 00:00:[address] [facility] Proquad (MMR/VARICELLA) 2007-06-09 00:00:[address] [facility] DTAP 2007-06-09 00:00:[address] [facility] HEPATITIS A 2007-06-09 00:00:[address] [facility] Polio (IPV/OPV) 2007-06-09 00:00:[address] [facility] Proquad (MMR/VARICELLA) 2007-06-09 00:00:[address] [facility] DTAP 2007-06-09 00:00:[address] [facility] HEPATITIS A 2007-06-09 00:00:[address] [facility] Polio (IPV/OPV) 2007-06-09 00:00:[address] [facility] Proquad (MMR/VARICELLA) 2007-06-09 00:00:[address] [facility] DTAP 2007-06-09 00:00:[address] [facility] HEPATITIS A 2007-06-09 00:00:[address] [facility] Polio (IPV/OPV) 2007-06-09 00:00:[address] [facility] Proquad (MMR/VARICELLA) 2007-06-09 00:00:[address] [facility] DTAP 2007-06-09 00:00:[address] [facility] HEPATITIS A 2007-06-09 00:00:[address] [facility] Polio (IPV/OPV) 2007-06-09 00:00:[address] [facility] Proquad (MMR/VARICELLA) 2007-06-09 00:00:[address] [facility] DTAP 2007-06-09 00:00:[address] [facility] HEPATITIS A 2007-06-09 00:00:[address] [facility] Polio (IPV/OPV) 2007-06-09 00:00:[address] [facility] Proquad (MMR/VARICELLA) 2007-06-09 00:00:[address] [facility] DTAP 2007-06-09 00:00:00 Completed HEPATITIS A 2007-06-09 00:00:00 Completed Polio (IPV/OPV) 2007-06-09 00:00:00 Completed Proquad (MMR/VARICELLA) 2007-06-09 00:00:00 Completed DTAP 2007-06-09 00:00:[address] [facility] HEPATITIS A 2007-06-09 00:00:[address] [facility] Polio (IPV/OPV) 2007-06-09 00:00:[address] [facility] Proquad (MMR/VARICELLA) 2007-06-09 00:00:[address] [facility] DTAP 2007-06-09 00:00:[address] [facility] HEPATITIS A 2007-06-09 00:00:[address] [facility] Polio (IPV/OPV) 2007-06-09 00:00:[address] [facility] Proquad (MMR/VARICELLA) 2007-06-09 00:00:[address] [facility] DTAP 2007-06-09 00:00:[address] [facility] HEPATITIS A 2007-06-09 00:00:[address] [facility] MMR 2004-08-26 00:00:[address] [facility] Varicella (varivax)(chicken pox) 2004-08-26 00:00:[address] [facility] Pneumococcal 7 Conjugate, PCV7 (Prevnar7) 2004-08-26 00:00:[address] [facility] MMR 2004-08-26 00:00:[address] [facility] Varicella (varivax)(chicken pox) 2004-08-26 00:00:[address] [facility] Pneumococcal 7 Conjugate, PCV7 (Prevnar7) 2004-08-26 00:00:[address] [facility] MMR 2004-08-26 00:00:[address] [facility] Varicella (varivax)(chicken pox) 2004-08-26 00:00:[address] [facility] Pneumococcal 7 Conjugate, PCV7 (Prevnar7) 2004-08-26 00:00:[address] [facility] MMR 2004-08-26 00:00:[address] [facility] Varicella (varivax)(chicken pox) 2004-08-26 00:00:[address] [facility] Pneumococcal 7 Conjugate, PCV7 (Prevnar7) 2004-08-26 00:00:[address] [facility] MMR 2004-08-26 00:00:[address] [facility] Varicella (varivax)(chicken pox) 2004-08-26 00:00:[address] [facility] Pneumococcal 7 Conjugate, PCV7 (Prevnar7) 2004-08-26 00:00:[address] [facility] MMR 2004-08-26 00:00:[address] [facility] Varicella (varivax)(chicken pox) 2004-08-26 00:00:[address] [facility] Pneumococcal 7 Conjugate, PCV7 (Prevnar7) 2004-08-26 00:00:[address] [facility] MMR 2004-08-26 00:00:[address] [facility] Varicella (varivax)(chicken pox) 2004-08-26 00:00:[address] [facility] Pneumococcal 7 Conjugate, PCV7 (Prevnar7) 2004-08-26 00:00:[address] [facility] MMR 2004-08-26 00:00:[address] [facility] Varicella (varivax)(chicken pox) 2004-08-26 00:00:[address] [facility] Pneumococcal 7 Conjugate, PCV7 (Prevnar7) 2004-08-26 00:00:[address] [facility] MMR 2004-08-26 00:00:00 Completed Varicella (varivax)(chicken pox) 2004-08-26 00:00:00 Completed Pneumococcal 7 Conjugate, PCV7 (Prevnar7) 2004-08-26 00:00:00 Completed MMR 2004-08-26 00:00:[address] [facility] Varicella (varivax)(chicken pox) 2004-08-26 00:00:[address] [facility] Pneumococcal 7 Conjugate, PCV7 (Prevnar7) 2004-08-26 00:00:[address] [facility] MMR 2004-08-26 00:00:[address] [facility] Varicella (varivax)(chicken pox) 2004-08-26 00:00:[address] [facility] Pneumococcal 7 Conjugate, PCV7 (Prevnar7) 2004-08-26 00:00:[address] [facility] DTAP 2004-07-18 00:00:[address] [facility] HIB 4 Dose Schedule 2004-07-18 00:00:[address] [facility] DTAP 2004-07-18 00:00:[address] [facility] HIB 4 Dose Schedule 2004-07-18 00:00:[address] [facility] DTAP 2004-07-18 00:00:[address] [facility] HIB 4 Dose Schedule 2004-07-18 00:00:[address] [facility] DTAP 2004-07-18 00:00:[address] [facility] HIB 4 Dose Schedule 2004-07-18 00:00:[address] [facility] DTAP 2004-07-18 00:00:[address] [facility] HIB 4 Dose Schedule 2004-07-18 00:00:[address] [facility] DTAP 2004-07-18 00:00:[address] [facility] HIB 4 Dose Schedule 2004-07-18 00:00:[address] [facility] DTAP 2004-07-18 00:00:[address] [facility] HIB 4 Dose Schedule 2004-07-18 00:00:[address] [facility] DTAP 2004-07-18 00:00:00 Completed HIB 4 Dose Schedule 2004-07-18 00:00:00 Completed DTAP 2004-07-18 00:00:[address] [facility] HIB 4 Dose Schedule 2004-07-18 00:00:[address] [facility] DTAP 2004-07-18 00:00:[address] [facility] HIB 4 Dose Schedule 2004-07-18 00:00:[address] [facility] DTAP 2004-07-18 00:00:[address] [facility] HIB 4 Dose Schedule 2004-07-18 00:00:[address] [facility] Hep B, Adol or Pedi Dosage 2003-07-02 00:00:[address] [facility] Polio (IPV/OPV) 2003-07-02 00:00:[address] [facility] DTAP 2003-07-02 00:00:[address] [facility] HIB 4 Dose Schedule 2003-07-02 00:00:[address] [facility] Hep B, Adol or Pedi Dosage 2003-07-02 00:00:[address] [facility] Polio (IPV/OPV) 2003-07-02 00:00:[address] [facility] DTAP 2003-07-02 00:00:[address] [facility] HIB 4 Dose Schedule 2003-07-02 00:00:[address] [facility] Hep B, Adol or Pedi Dosage 2003-07-02 00:00:[address] [facility] Polio (IPV/OPV) 2003-07-02 00:00:[address] [facility] [facility] [facility] DTAP 2003-07-02 00:00:[address] [facility] HIB 4 Dose Schedule 2003-07-02 00:00:[address] [facility] Hep B, Adol or Pedi Dosage 2003-07-02 00:00:[address] [facility] Polio (IPV/OPV) 2003-07-02 00:00:[address] [facility] DTAP 2003-07-02 00:00:[address] [facility] HIB 4 Dose Schedule 2003-07-02 00:00:[address] [facility] Hep B, Adol or Pedi Dosage 2003-07-02 00:00:[address] [facility] Polio (IPV/OPV) 2003-07-02 00:00:[address] [facility] DTAP 2003-07-02 00:00:[address] [facility] HIB 4 Dose Schedule 2003-07-02 00:00:[address] [facility] Hep B, Adol or Pedi Dosage 2003-07-02 00:00:[address] [facility] Polio (IPV/OPV) 2003-07-02 00:00:[address] [facility] DTAP 2003-07-02 00:00:[address] [facility] HIB 4 Dose Schedule 2003-07-02 00:00:[address] [facility] Hep B, Adol or Pedi Dosage 2003-07-02 00:00:[address] [facility] Polio (IPV/OPV) 2003-07-02 00:00:[address] [facility] DTAP 2003-07-02 00:00:[address] [facility] HIB 4 Dose Schedule 2003-07-02 00:00:[address] [facility] Hep B, Adol or Pedi Dosage 2003-07-02 00:00:[address] [facility] Polio (IPV/OPV) 2003-07-02 00:00:[address] [facility] DTAP 2003-07-02 00:00:00 Completed HIB 4 Dose Schedule 2003-07-02 00:00:00 Completed Hep B, Adol or Pedi Dosage 2003-07-02 00:00:00 Completed Polio (IPV/OPV) 2003-07-02 00:00:00 Completed DTAP 2003-07-02 00:00:[address] [facility] HIB 4 Dose Schedule 2003-07-02 00:00:[address] [facility] Hep B, Adol or Pedi Dosage 2003-07-02 00:00:[address] [facility] Polio (IPV/OPV) 2003-07-02 00:00:[address] [facility] DTAP 2003-07-02 00:00:[address] [facility] HIB 4 Dose Schedule 2003-07-02 00:00:[address] [facility] Hep B, Adol or Pedi Dosage 2003-07-02 00:00:[address] [facility] Polio (IPV/OPV) 2003-07-02 00:00:[address] [facility] DTAP 2003-07-02 00:00:[address] [facility] HIB 4 Dose Schedule 2003-07-02 00:00:[address] [facility] Polio (IPV/OPV) 2003-05-01 00:00:[address] [facility] DTAP 2003-05-01 00:00:[address] [facility] HIB 4 Dose Schedule 2003-05-01 00:00:[address] [facility] Polio (IPV/OPV) 2003-05-01 00:00:[address] [facility] DTAP 2003-05-01 00:00:[address] [facility] HIB 4 Dose Schedule 2003-05-01 00:00:[address] [facility] Polio (IPV/OPV) 2003-05-01 00:00:[address] [facility] DTAP 2003-05-01 00:00:[address] [facility] HIB 4 Dose Schedule 2003-05-01 00:00:[address] [facility] Polio (IPV/OPV) 2003-05-01 00:00:[address] [facility] DTAP 2003-05-01 00:00:[address] [facility] HIB 4 Dose Schedule 2003-05-01 00:00:[address] [facility] Polio (IPV/OPV) 2003-05-01 00:00:[address] [facility] DTAP 2003-05-01 00:00:[address] [facility] HIB 4 Dose Schedule 2003-05-01 00:00:[address] [facility] Polio (IPV/OPV) 2003-05-01 00:00:[address] [facility] DTAP 2003-05-01 00:00:[address] [facility] HIB 4 Dose Schedule 2003-05-01 00:00:[address] [facility] Polio (IPV/OPV) 2003-05-01 00:00:[address] [facility] DTAP 2003-05-01 00:00:[address] [facility] HIB 4 Dose Schedule 2003-05-01 00:00:[address] [facility] Polio (IPV/OPV) 2003-05-01 00:00:[address] [facility] DTAP 2003-05-01 00:00:00 Completed HIB 4 Dose Schedule 2003-05-01 00:00:00 Completed Polio (IPV/OPV) 2003-05-01 00:00:00 Completed DTAP 2003-05-01 00:00:[address] [facility] HIB 4 Dose Schedule 2003-05-01 00:00:[address] [facility] Polio (IPV/OPV) 2003-05-01 00:00:[address] [facility] DTAP 2003-05-01 00:00:[address] [facility] HIB 4 Dose Schedule 2003-05-01 00:00:[address] [facility] Polio (IPV/OPV) 2003-05-01 00:00:[address] [facility] DTAP 2003-05-01 00:00:[address] [facility] HIB 4 Dose Schedule 2003-05-01 00:00:[address] [facility] Hep B, Adol or Pedi Dosage 2003-02-27 00:00:[address] [facility] Polio (IPV/OPV) 2003-02-27 00:00:[address] [facility] DTAP 2003-02-27 00:00:[address] [facility] HIB 4 Dose Schedule 2003-02-27 00:00:[address] [facility] Hep B, Adol or Pedi Dosage 2003-02-27 00:00:[address] [facility] Polio (IPV/OPV) 2003-02-27 00:00:[address] [facility] DTAP 2003-02-27 00:00:[address] [facility] HIB 4 Dose Schedule 2003-02-27 00:00:[address] [facility] Hep B, Adol or Pedi Dosage 2003-02-27 00:00:[address] [facility] Polio (IPV/OPV) 2003-02-27 00:00:[address] [facility] DTAP 2003-02-27 00:00:[address] [facility] HIB 4 Dose Schedule 2003-02-27 00:00:[address] [facility] Hep B, Adol or Pedi Dosage 2003-02-27 00:00:[address] [facility] Polio (IPV/OPV) 2003-02-27 00:00:[address] [facility] DTAP 2003-02-27 00:00:[address] [facility] HIB 4 Dose Schedule 2003-02-27 00:00:[address] [facility] Hep B, Adol or Pedi Dosage 2003-02-27 00:00:[address] [facility] Polio (IPV/OPV) 2003-02-27 00:00:[address] [facility] DTAP 2003-02-27 00:00:[address] [facility] HIB 4 Dose Schedule 2003-02-27 00:00:[address] [facility] Hep B, Adol or Pedi Dosage 2003-02-27 00:00:[address] [facility] Polio (IPV/OPV) 2003-02-27 00:00:[address] [facility] DTAP 2003-02-27 00:00:[address] [facility] HIB 4 Dose Schedule 2003-02-27 00:00:[address] [facility] Hep B, Adol or Pedi Dosage 2003-02-27 00:00:[address] [facility] Polio (IPV/OPV) 2003-02-27 00:00:[address] [facility] DTAP 2003-02-27 00:00:[address] [facility] HIB 4 Dose Schedule 2003-02-27 00:00:[address] [facility] Hep B, Adol or Pedi Dosage 2003-02-27 00:00:[address] [facility] Polio (IPV/OPV) 2003-02-27 00:00:[address] [facility] DTAP 2003-02-27 00:00:[address] [facility] HIB 4 Dose Schedule 2003-02-27 00:00:00 Completed Hep B, Adol or Pedi Dosage 2003-02-27 00:00:00 Completed Polio (IPV/OPV) 2003-02-27 00:00:00 Completed DTAP 2003-02-27 00:00:[address] [facility] HIB 4 Dose Schedule 2003-02-27 00:00:[address] [facility] Hep B, Adol or Pedi Dosage 2003-02-27 00:00:[address] [facility] Polio (IPV/OPV) 2003-02-27 00:00:[address] [facility] DTAP 2003-02-27 00:00:[address] [facility] HIB 4 Dose Schedule 2003-02-27 00:00:[address] [facility] Hep B, Adol or Pedi Dosage 2003-02-27 00:00:[address] [facility] Polio (IPV/OPV) 2003-02-27 00:00:[address] [facility] DTAP 2003-02-27 00:00:[address] [facility] HIB 4 Dose Schedule 2003-02-27 00:00:[address] [facility] Hep B, Adol or Pedi Dosage 2002 00:00:[address] [facility] Hep B, Adol or Pedi Dosage 2002 00:00:[address] [facility] Hep B, Adol or Pedi Dosage 2002 00:00:[address] [facility] Hep B, Adol or Pedi Dosage 2002 00:00:[address] [facility] Hep B, Adol or Pedi Dosage 2002 00:00:[address] [facility] Hep B, Adol or Pedi Dosage 2002 00:00:[address] [facility] Hep B, Adol or Pedi Dosage 2002 00:00:[address] [facility] Hep B, Adol or Pedi Dosage 2002 00:00:00 Completed Hep B, Adol or Pedi Dosage 2002 00:00:[address] [facility] Hep B, Adol or Pedi Dosage 2002 00:00:[address] [facility] Hep B, Adol or Pedi Dosage 2002 00:00:[address] [facility] TDAP Unknown Completed [facility] DTAP Unknown Completed [facility] HIB 4 Dose Schedule Unknown Completed [facility] HEPATITIS A Unknown Completed [facility] Hep B, Adol or Pedi Dosage Unknown Completed [facility] HPV Unknown Completed [facility] Meningococcal Polysaccharide (groups A, C, Y and W-135) conjugate vaccine (MCV4P) Unknown Completed [facility] MMR Unknown Completed [facility] Polio (IPV/OPV) Unknown Completed [facility] Proquad (MMR/VARICELLA) Unknown Completed [facility] Varicella (varivax)(chicken pox) Unknown Completed [facility] Pneumococcal 7 Conjugate, PCV7 (Prevnar7) Unknown Completed [facility] HPV9 Unknown Completed [facility] TDAP Unknown Completed [facility] DTAP Unknown Completed [facility] HIB 4 Dose Schedule Unknown Completed [facility] HEPATITIS A Unknown Completed [facility] Hep B, Adol or Pedi Dosage Unknown Completed [facility] HPV Unknown Completed [facility] Meningococcal Polysaccharide (groups A, C, Y and W-135) conjugate vaccine (MCV4P) Unknown Completed [facility] MMR Unknown Completed [facility] Polio (IPV/OPV) Unknown Completed [facility] Proquad (MMR/VARICELLA) Unknown Completed [facility] Varicella (varivax)(chicken pox) Unknown Completed [facility] Pneumococcal 7 Conjugate, PCV7 (Prevnar7) Unknown Completed [facility] HPV9 Unknown Completed [facility] TDAP Unknown Completed [facility] DTAP Unknown Completed [facility] HIB 4 Dose Schedule Unknown Completed [facility] HEPATITIS A Unknown Completed [facility] Hep B, Adol or Pedi Dosage Unknown Completed [facility] HPV Unknown Completed [facility] Meningococcal Polysaccharide (groups A, C, Y and W-135) conjugate vaccine (MCV4P) Unknown Completed [facility] MMR Unknown Completed [facility] Polio (IPV/OPV) Unknown Completed [facility] Proquad (MMR/VARICELLA) Unknown Completed [facility] Varicella (varivax)(chicken pox) Unknown Completed [facility] Pneumococcal 7 Conjugate, PCV7 (Prevnar7) Unknown Completed [facility] HPV9 Unknown Completed [facility] TDAP Unknown Completed [facility] DTAP Unknown Completed [facility] HIB 4 Dose Schedule Unknown Completed [facility] HEPATITIS A Unknown Completed [facility] Hep B, Adol or Pedi Dosage Unknown Completed [facility] HPV Unknown Completed [facility] Meningococcal Polysaccharide (groups A, C, Y and W-135) conjugate vaccine (MCV4P) Unknown Completed [facility] MMR Unknown Completed [facility] Polio (IPV/OPV) Unknown Completed [facility] Proquad (MMR/VARICELLA) Unknown Completed [facility] Varicella (varivax)(chicken pox) Unknown Completed [facility] Pneumococcal 7 Conjugate, PCV7 (Prevnar7) Unknown Completed [facility] HPV9 Unknown Completed [facility] TDAP Unknown Completed [facility] DTAP Unknown Completed [facility] HIB 4 Dose Schedule Unknown Completed [facility] HEPATITIS A Unknown Completed [facility] Hep B, Adol or Pedi Dosage Unknown Completed [facility] HPV Unknown Completed [facility] Meningococcal Polysaccharide (groups A, C, Y and W-135) conjugate vaccine (MCV4P) Unknown Completed [facility] MMR Unknown Completed [facility] Polio (IPV/OPV) Unknown Completed [facility] Proquad (MMR/VARICELLA) Unknown Completed [facility] Varicella (varivax)(chicken pox) Unknown Completed [facility] Pneumococcal 7 Conjugate, PCV7 (Prevnar7) Unknown Completed [facility] HPV9 Unknown Completed [facility] TDAP Unknown Completed [facility] DTAP Unknown Completed [facility] HIB 4 Dose Schedule Unknown Completed [facility] HEPATITIS A Unknown Completed [facility] Hep B, Adol or Pedi Dosage Unknown Completed [facility] HPV Unknown Completed [facility] Meningococcal Polysaccharide (groups A, C, Y and W-135) conjugate vaccine (MCV4P) Unknown Completed [facility] MMR Unknown Completed [facility] Polio (IPV/OPV) Unknown Completed [facility] Proquad (MMR/VARICELLA) Unknown Completed [facility] Varicella (varivax)(chicken pox) Unknown Completed [facility] Pneumococcal 7 Conjugate, PCV7 (Prevnar7) Unknown Completed [facility] HPV9 Unknown Completed [facility] TDAP Unknown Completed [facility] DTAP Unknown Completed [facility] HIB 4 Dose Schedule Unknown Completed [facility] HEPATITIS A Unknown Completed [facility] Hep B, Adol or Pedi Dosage Unknown Completed [facility] HPV Unknown Completed [facility] Meningococcal Polysaccharide (groups A, C, Y and W-135) conjugate vaccine (MCV4P) Unknown Completed [facility] MMR Unknown Completed [facility] Polio (IPV/OPV) Unknown Completed [facility] Proquad (MMR/VARICELLA) Unknown Completed [facility] Varicella (varivax)(chicken pox) Unknown Completed [facility] Pneumococcal 7 Conjugate, PCV7 (Prevnar7) Unknown Completed [facility] HPV9 Unknown Completed [facility] TDAP Unknown Completed [facility] DTAP Unknown Completed [facility] HIB 4 Dose Schedule Unknown Completed [facility] HEPATITIS A Unknown Completed [facility] Hep B, Adol or Pedi Dosage Unknown Completed [facility] HPV Unknown Completed [facility] Meningococcal Polysaccharide (groups A, C, Y and W-135) conjugate vaccine (MCV4P) Unknown Completed [facility] MMR Unknown Completed [facility] Polio (IPV/OPV) Unknown Completed [facility] Proquad (MMR/VARICELLA) Unknown Completed [facility] Varicella (varivax)(chicken pox) Unknown Completed [facility] Pneumococcal 7 Conjugate, PCV7 (Prevnar7) Unknown Completed [facility] HPV9 Unknown Completed [facility] TDAP Unknown Completed [facility] DTAP Unknown Completed [facility] HIB 4 Dose Schedule Unknown Completed [facility] HEPATITIS A Unknown Completed [facility] Hep B, Adol or Pedi Dosage Unknown Completed [facility] HPV Unknown Completed [facility] Meningococcal Polysaccharide (groups A, C, Y and W-135) conjugate vaccine (MCV4P) Unknown Completed [facility] MMR Unknown Completed [facility] Polio (IPV/OPV) Unknown Completed [facility] Proquad (MMR/VARICELLA) Unknown Completed [facility] Varicella (varivax)(chicken pox) Unknown Completed [facility] Pneumococcal 7 Conjugate, PCV7 (Prevnar7) Unknown Completed [facility] HPV9 Unknown Completed [facility] Vital Signs Vital Name Observation Time Observation Value Comments S ource Systolic blood pressure 2024-10-21 18:57:00 121 mm[Hg] [facility] Diastolic blood pressure 2024-10-21 18:57:00 67 mm[Hg] [facility] Heart rate 2024-10-21 18:57:00 88 /min [facility] Body temperature 2024-10-21 18:57:[address] [facility] Respiratory rate 2024-10-21 18:57:00 18 /min [facility] Body height 2024-10-21 18:57:00 147.3 cm [facility] Body weight 2024-10-21 18:57:00 72.666 kg [facility] BMI 2024-10-21 18:57:00 33.48 kg/m2 [facility] Systolic blood pressure 2024-08-31 16:28:00 125 mm[Hg] [facility] Diastolic blood pressure 2024-08-31 16:28:00 75 mm[Hg] [facility] Heart rate 2024-08-31 16:28:00 74 /min [facility] Body temperature 2024-08-31 16:28:[address] [facility] Respiratory rate 2024-08-31 16:28:00 18 /min [facility] Body height 2024-08-31 16:28:00 147.3 cm [facility] Body weight 2024-08-31 16:28:00 71.215 kg [facility] BMI 2024-08-31 16:28:00 32.81 kg/m2 [facility] Systolic blood pressure 2024-07-01 13:40:00 124 mm[Hg] [facility] Diastolic blood pressure 2024-07-01 13:40:00 74 mm[Hg] [facility] Heart rate 2024-07-01 13:40:00 76 /min [facility] Body temperature 2024-07-01 13:40:[address] [facility] Respiratory rate 2024-07-01 13:40:00 16 /min [facility] Body height 2024-07-01 13:40:00 147.3 cm [facility] Body weight 2024-07-01 13:40:00 70.308 kg [facility] BMI 2024-07-01 13:40:00 32.40 kg/m2 [facility] Systolic blood pressure 2024-06-08 13:48:00 128 mm[Hg] [facility] Diastolic blood pressure 2024-06-08 13:48:00 78 mm[Hg] [facility] Heart rate 2024-06-08 13:48:00 72 /min [facility] Body temperature 2024-06-08 13:48:[address] [facility] Respiratory rate 2024-06-08 13:48:00 18 /min [facility] Body height 2024-06-08 13:48:00 147.3 cm [facility] Body weight 2024-06-08 13:48:00 70.398 kg [facility] BMI 2024-06-08 13:48:00 32.44 kg/m2 [facility] Systolic blood pressure 2023-09-06 19:35:00 112 mm[Hg] [facility] Diastolic blood pressure 2023-09-06 19:35:00 75 mm[Hg] [facility] Heart rate 2023-09-06 19:35:00 110 /min [facility] Body temperature 2023-09-06 19:35:[address] [facility] Respiratory rate 2023-09-06 19:35:00 14 /min [facility] Oxygen saturation in Arterial blood by Pulse oximetry 2023-09-06 19:35:00 99 /min [facility] Body height 2023-09-06 17:32:00 147.3 cm [facility] Body weight 2023-09-06 17:32:00 67.132 kg [facility] BMI 2023-09-06 17:32:00 30.93 kg/m2 [facility] Systolic blood pressure 2023-01-26 14:43:00 101 mm[Hg] [facility] Diastolic blood pressure 2023-01-26 14:43:00 60 mm[Hg] [facility] Heart rate 2023-01-26 14:43:00 71 /min [facility] Body temperature 2023-01-26 14:43:[address] [facility] Respiratory rate 2023-01-26 14:43:00 18 /min [facility] Body height 2023-01-26 14:43:00 121.9 cm [facility] Body weight 2023-01-26 14:43:00 65.137 kg [facility] BMI 2023-01-26 14:43:00 43.82 kg/m2 [facility] Systolic blood pressure 2022-10-31 20:42:00 106 mm[Hg] [place] [facility] Diastolic blood pressure 2022-10-31 20:42:00 74 mm[Hg] [facility] Heart rate 2022-10-31 20:42:00 68 /min [facility] Body temperature 2022-10-31 20:42:[address] [facility] Respiratory rate 2022-10-31 20:42:00 18 /min [facility] Body height 2022-10-31 20:42:00 147.3 cm [facility] Body weight 2022-10-31 20:42:00 64.864 kg [facility] BMI 2022-10-31 20:42:00 29.89 kg/m2 [facility] Systolic blood pressure 2022-08-04 21:42:00 108 mm[Hg] [facility] Diastolic blood pressure 2022-08-04 21:42:00 70 mm[Hg] [facility] Heart rate 2022-08-04 21:42:00 74 /min [facility] Body temperature 2022-08-04 21:42:[address] [facility] Respiratory rate 2022-08-04 21:42:00 16 /min [facility] Body height 2022-08-04 21:42:00 147.3 cm [facility] Body weight 2022-08-04 21:42:00 61.598 kg [facility] BMI 2022-08-04 21:42:00 28.38 kg/m2 [facility] Systolic blood pressure 2022-05-02 16:11:00 109 mm[Hg] [facility] Diastolic blood pressure 2022-05-02 16:11:00 65 mm[Hg] [facility] Heart rate 2022-05-02 16:11:00 76 /min [facility] Body temperature 2022-05-02 16:11:[address] [facility] Respiratory rate 2022-05-02 16:11:00 18 /min [facility] Body height 2022-05-02 16:11:00 147.3 cm [facility] Body weight 2022-05-02 16:11:00 64.864 kg [facility] BMI 2022-05-02 16:11:00 29.89 kg/m2 [facility] Body mass index (BMI) [Percentile] Per age and sex 2022-05-02 16:11:00 93.49 % [facility] Systolic blood pressure 2022-01-21 20:35:00 110 mm[Hg] [facility] Diastolic blood pressure 2022-01-21 20:35:00 71 mm[Hg] [facility] Heart rate 2022-01-21 20:35:00 97 /min [facility] Respiratory rate 2022-01-21 20:35:00 18 /min [facility] Body height 2022-01-21 20:35:00 147.3 cm [facility] Body weight 2022-01-21 20:35:00 67.132 kg [facility] BMI 2022-01-21 20:35:00 30.93 kg/m2 [facility] Body mass index (BMI) [Percentile] Per age and sex 2022-01-21 20:35:00 94.89 % [facility] Systolic blood pressure 2021-10-21 20:41:00 107 mm[Hg] [facility] Diastolic blood pressure 2021-10-21 20:41:00 69 mm[Hg] [facility] Heart rate 2021-10-21 20:41:00 80 /min [facility] Body temperature 2021-10-21 20:41:[address] [facility] Respiratory rate 2021-10-21 20:41:00 18 /min [facility] Body height 2021-10-21 20:41:00 147.3 cm [facility] Body weight 2021-10-21 20:41:00 63.957 kg [facility] BMI 2021-10-21 20:41:00 29.47 kg/m2 [facility] Body mass index (BMI) [Percentile] Per age and sex 2021-10-21 20:41:00 93.37 % [place] [facility] Procedures Procedure Date / Time Performed Performing Clinician Source POCT TEST 2024-06-08 14:05:[address] [facility] ASSIGNMENT OF BENEFITS 2023-09-06 18:12:54 Docto r Unassigned, Glenvil [facility] RAPID STREP SCREEN FOR GROUP A 2023-09-06 18:06:[address] [facility] RAPID INFLUENZA A/B 2023-09-06 18:06:[address] [facility] COVID-19 (ID NOW RAPID TESTING) 2023-09-06 18:06:[address] [facility] NOTICE OF PRIVACY PRACTICES 2023-09-06 17:21:21 Doctor Unassigned, Glenvil [facility] CONSENT/REFUSAL FOR DIAGNOSIS AND TREATMENT 2023-09-06 17:20:14 Doctor Unassigned, Glenvil [facility] ASSIGNMENT OF BENEFITS 2023-09-06 17:19:46 Docto r Unassigned, Glenvil [facility] GARDASIL 9 (HPV 9V) VACCINE 2023-01-26 16:02:41 Espinoza Gonsales [facility] PATIENT FINANCIAL POLICY 2023-01-26 14:28:24 Doctor Unassigned, Glenvil [facility] CONSENT FOR CONTRACEPTION 2022-10-31 06:01:00 Doctor Unassigned, Glenvil [facility] ASSIGNMENT OF BENEFITS 2022-05-02 15:52:47 Docto r Unassigned, Glenvil [facility] CONSENT FOR CONTRACEPTION 2021-10-21 06:01:00 Doctor Unassigned, Glenvil [facility] Encounters Start Date/Time End Date/Time Encounter Type Admission Type Attending Clinicians Care Facility Care Department Encounter ID Source 2021-09-06 18:53:45 Outpatient P [facility] [id number] [facility] 2021-09-06 11:21:28 Outpatient P [facility] [id number] [facility] 2021-09-06 11:20:20 Outpatient [facility] [id number] [facility] 2024-10-21 12:45:00 2024-10-21 13:17:22 Outpatient R MICA TONY [facility] [id number] [facility] 2024-10-21 12:45:00 2024-10-21 13:17:22 Office Visit Mica Tony [facility] [employer] SCOUT [facility] & CHILD [facility] 1.2840.114 350.1.13.10 4.2.7.2.686 [id number] [facility] 2024-10-11 07:45:00 2024-10-11 07:45:00 Outpatient R MICA TONY [facility] [id number] [facility] 2024-09-01 00:00:00 2024-09-01 16:41:08 Telephone Alma Busch [facility] [employer] SCOUT [facility] & CHILD [facility] 1.2840.114 350.1.13.10 4.2.7.2.686 [id number] [facility] 2024-08-31 11:00:00 2024-08-31 12:17:23 Office Visit Alma Busch [facility] [employer] SCOUT [facility] & CHILD [facility] 1.2.840.114 350.1.13.10 4.2.7.2.686 [id number] [facility] 2024-08-31 09:00:00 2024-08-31 09:15:00 Nurse Visit Visit, Ang-Rmchp Nurse Mica Tony Visit, Pamchrajat Nurse [facility] [employer] SCOUT [facility] CHILD [facility] 1.2.840.114 350.1.13.10 4.2.7.2.686 [id number] [facility] 2024-08-31 09:00:00 2024-08-31 09:00:00 Outpatient R [facility] [id number] [facility] 2024-08-31 09:00:00 2024-08-31 09:00:00 Outpatient R DANAMICA [facility] [id number] [facility] 2024-06-09 00:00:00 2024-07-16 18:24:55 Patient Secure Msg Mica Tony [facility] [employer] SCOUT [facility] MATERNAL & CHILD [facility] 1.2.840.114 350.1.13.10 4.2.7.2.686 [id number] [facility] 2024-07-03 00:00:00 2024-07-03 13:34:24 Telephone Mica Tony [facility] [employer] SCOUT [facility] & CHILD [facility] 1.2840.114 350.1.13.10 4.2.7.2.686 [id number] [facility] 2024-07-01 08:30:00 2024-07-01 09:04:41 Outpatient R MICA TONY [facility] [id number] [facility] 2024-07-01 08:30:00 2024-07-01 09:04:41 Office Visit Mica Tony [facility] [employer] SCOUT [facility] & CHILD [facility] 1.2.840.114 350.1.13.10 4.2.7.2.686 [id number] [facility] 2024-06-29 00:00:00 2024-06-30 07:28:06 Symone Pendleton [facility] [employer] SCOUT [facility] & CHILD [facility] 1.2.840.114 350.1.13.10 4.2.7.2.686 [id number] [facility] 2024-06-09 00:00:00 2024-06-09 15:27:28 Telephone Mica Tony [facility] [employer] SCOUT [facility] & CHILD [facility] 1.2.840.114 350.1.13.10 4.2.7.2.686 [id number] [facility] 2024-06-09 00:00:00 2024-06-09 13:34:25 Telephone Mica Tony [facility] [employer] SCOUT [facility] & CHILD [facility] 1.2.840.114 350.1.13.10 4.2.7.2.686 [id number] [facility] 2024-06-09 00:00:00 2024-06-09 00:00:00 Telephone Symone Gregg [facility] [employer] SCOUT [facility] & CHILD [facility] 1.2.840.114 350.1.13.10 4.2.7.2.686 [id number] [facility] 2024-06-08 08:45:00 2024-06-08 09:32:18 Outpatient R MICA TONY [facility] [id number] [facility] 2024-06-08 08:45:00 2024-06-08 09:32:18 Office Visit Mica Tony [facility] [employer] SCOUT [facility] & CHILD [facility] 1.2.840.114 350.1.13.10 4.2.7.2.686 [id number] [facility] 2024-05-10 07:15:00 2024-05-10 07:15:00 Outpatient R MICA TONY [facility] [id number] [facility] 2024-02-15 07:45:00 2024-02-15 07:45:00 Outpatient R SYMONE GREGG [facility] [id number] [facility] 2024-02-01 09:30:00 2024-02-01 09:30:00 Outpatient R ESPINOZA GONSALES [facility] [id number] [facility] 2024-01-19 12:45:00 2024-01-19 12:45:00 Outpatient R ALMA BUSCH [facility] [id number] [facility] 2024-01-01 06:45:00 2024-01-01 06:45:00 Outpatient R DAVID DE LA GARZAKISHOREFARRAH [facility] [id number] [facility] 2023-12-25 09:00:00 2023-12-25 09:00:00 Outpatient R SYMONE GREGG [facility] [id number] [facility] 2023-09-06 12:34:00 2023-09-06 14:38:00 Emergency X ALANIZTRISHA [facility] ERT [id number] [facility] 2023-09-06 12:34:00 2023-09-06 14:38:00 Emergency Alaniz, Trisha S [facility] 1.2.840.114 350.1.13.10 4.2.7.2.686 [id number] [facility] 2023-07-24 15:00:00 2023-07-24 15:00:00 Outpatient R [facility] [id number] [facility] 2023-05-29 09:00:00 2023-05-29 09:00:00 Outpatient R ESPINOZA GONSALES [facility] [id number] [facility] 2023-05-05 15:00:00 2023-05-05 15:00:00 Outpatient R ESPINOZA GONSALES [facility] [id number] [facility] 2023-05-04 15:30:00 2023-05-04 15:30:00 Outpatient R [facility] [id number] [facility] 2023-04-28 09:00:00 2023-04-28 09:00:00 Outpatient R [facility] [id number] [facility] 2023-01-26 09:30:00 2023-01-26 10:08:05 Outpatient R ESPINOZA GONSALES [facility] [id number] [facility] 2023-01-26 09:30:00 2023-01-26 10:08:05 Office Visit Espinoza Gonsales [facility] 1.840.114 350.1.13.10 4.2.7.2.686 [id number] [facility] 2023-01-26 00:00:00 2023-01-26 00:00:00 Orders Only Doctor Unassigned, Glenvil [facility] 1.284.114 350.1.13.10 4.2.7.2.686 [id number] [facility] 2022-10-31 14:30:00 2022-10-31 14:44:24 Nurse Visit Nurse, [facility] Dru [facility] 1..840.114 350.1.13.10 4.2.7.2.686 [id number] [facility] 2022-10-31 14:30:00 2022-10-31 14:30:00 Outpatient R DRU [facility] [id number] [facility] 2022-10-31 00:00:00 2022-10-31 00:00:00 Orders Only Doctor Unassigned, Glenvil [facility] 1.840.114 350.1.13.10 4.2.7.2.686 [id number] [facility] 2022-10-29 10:30:00 2022-10-29 10:30:00 Outpatient R ESPINOZA GONSALES [facility] [id number] [facility] 2022-08-05 13:00:00 2022-08-05 13:00:00 Outpatient R [facility] [id number] [facility] 2022-08-04 15:00:00 2022-08-04 16:37:47 Nurse Visit Nurse, [facility] Dru [facility] 1..840.114 350.1.13.10 4.2.7.2.686 [id number] [facility] 2022-08-04 15:00:00 2022-08-04 15:00:00 Outpatient ESPINOZA HUANG [facility] [id number] [facility] 2022-07-25 10:00:00 2022-07-25 10:00:00 Outpatient ESPINOZA HUANG [facility] [id number] [facility] 2022-05-02 10:30:00 2022-05-02 11:11:21 Outpatient R SUSY [facility] [id number] [facility] 2022-05-02 10:30:00 2022-05-02 11:11:21 Nurse Visit Nurse, [facility] Susy Idalia [facility] 1..840.114 350.1.13.10 4.2.7.2.686 [id number] [facility] 2022-05-02 00:00:00 2022-05-02 00:00:00 Orders Only Doctor Unassigned, Glenvil [facility] 1..840.114 350.1.13.10 4.2.7.2.686 [id number] [facility] 2022-04-25 14:00:00 2022-04-25 14:00:00 Outpatient R [facility] [id number] [facility] 2022-04-23 10:30:00 2022-04-23 10:30:00 Outpatient R [facility] [id number] [facility] 2022-03-03 02:49:00 2022-03-03 02:49:00 Outpatient BUFFY REA [id number] [facility] 2022-01-21 15:00:00 2022-01-21 15:36:32 Outpatient PINA HUANG [facility] [id number] [facility] 2022-01-21 15:00:00 2022-01-21 15:36:32 Nurse Visit Nurse, [facility] Pina Gonsales [facility] 1.2.840.114 350.1.13.10 4.2.7.2.686 [id number] [facility] 2022-01-20 10:00:00 2022-01-20 10:00:00 Outpatient R [facility] [id number] [facility] 2021-10-21 14:30:56 2021-10-21 15:01:51 Office Visit Susy Idalia [facility] 1.2.840.114 350.1.13.10 4.2.7.2.686 [id number] [facility] 2021-10-21 14:30:00 2021-10-21 15:01:51 [id number] 2021-10-21 00:00:00 2021-10-21 00:00:00 Orders Only Doctor Unassigned, Glenvil [facility] 1.2.840.114 350.1.13.10 4.2.7.2.686 [id number] [facility] 2021-07-25 14:00:00 2021-07-25 14:00:00 Outpatient R ESPINOZA GONSALES [facility] [id number] [facility] 2021-07-25 13:41:25 2021-07-25 13:56:25 Nurse Visit Nurse, [facility] Espinoza Gonsales [facility] 1.2.840.114 350.1.13.10 4.2.7.2.686 [id number] [facility] 2021-07-17 14:30:00 2021-07-17 14:30:00 Outpatient R [facility] [id number] [facility] 2021-07-16 09:00:00 2021-07-16 09:00:00 Outpatient R [facility] [id number] [facility] 2021-04-17 10:30:00 2021-04-17 10:30:00 Outpatient R [facility] [id number] [facility] 2021-04-17 10:12:23 2021-04-17 10:27:27 Nurse Visit Nurse, [facility]840.114 350.1.13.10 4.2.7.2.686 [id number] [facility] 2021-04-17 00:00:00 2021-04-17 00:00:00 Orders Only Doctor Unassigned, Glenvil [facility] 1..840.114 350.1.13.10 4.2.7.2.686 [id number] [facility] 2021-04-15 10:00:00 2021-04-15 10:00:00 Outpatient R [facility] [id number] [facility] 2021-01-21 14:27:19 2021-01-21 14:51:33 Nurse Visit Nurse, [facility] 1.2.840.114 350.1.13.10 4.2.7.2.686 [id number] [facility] 2021-01-21 14:30:00 2021-01-21 14:30:00 Outpatient R DRU ESPINOZA [facility] [id number] [facility] 2020-12-05 00:00:00 2020-12-05 00:00:00 Telephone Dru Espinoza [facility] 1.2.840.114 350.1.13.10 4.2.7.2.686 [id number] [facility] 2020-10-18 14:23:45 2020-10-18 15:01:18 Office Visit Idalia Jain [facility] 1.284.114 350.1.13.10 4.2.7.2.686 [id number] [facility] 2020-10-18 14:30:00 2020-10-18 14:30:00 Outpatient R IDALIA JAIN [facility] [id number] [facility] 2020-10-18 00:00:00 2020-10-18 00:00:00 Orders Only Doctor Unassigned, Glenvil [facility] 1.2.114 350.1.13.10 4.2.7.2.686 [id number] [facility] 2020-08-28 11:30:00 2020-08-28 11:30:00 Outpatient R IDALIA JAIN [facility] [id number] [facility] 2020-08-06 10:36:00 2020-08-09 12:53:00 Hospital Encounter Espinoza Gonsales [facility] 1..114 350.1.13.10 4.2.7.2.686 [id number] [facility] 2020-08-06 00:00:00 2020-08-06 00:00:00 Telephone Espinoza Gonsales [facility] 1.2.114 350.1.13.10 4.2.7.2.686 [id number] 134 [id number] [facility] 2020-08-02 16:02:54 2020-08-02 16:17:54 Laboratory Only Only, Adc Test Espinoza Gonsales [facility] 1.2.114 350.1.13.10 4.2.7.2.686 [id number] [facility] 2020-08-02 15:45:00 2020-08-02 15:45:00 Outpatient R [facility] [id number] [facility] 2020-08-02 11:15:00 2020-08-02 11:15:00 Outpatient R [facility] [id number] [facility] 2020-07-31 15:57:47 2020-07-31 16:22:49 Routine Visit Espinoza Gonsales Nancy [facility] 1.2.840.114 350.1.13.10 4.2.7.2.686 [id number] [facility] 2020-07-31 15:45:00 2020-07-31 15:45:00 Outpatient R SUSY IDALIA [facility] [id number] [facility] 2020-07-24 16:15:00 2020-07-24 16:15:00 [facility] [id number] 2020-07-19 11:45:00 2020-07-19 11:45:00 Outpatient R [facility] [id number] [facility] 2020-07-17 16:32:23 2020-07-17 16:47:23 [facility] 1.2.840.114 350.1.13.10 4.2.7.2.686 [id number] [facility] 2020-07-17 16:15:00 2020-07-17 16:15:00 Outpatient R PATRICIACHUNGGUERITACY [facility] [id number] [facility] 2020-07-10 15:30:00 2020-07-10 15:30:00 Outpatient R ESPINOZA GONSALES [facility] [id number] [facility] 2020-07-10 10:15:00 2020-07-10 10:15:00 Outpatient R [facility] [id number] [facility] 2020-07-09 15:55:06 2020-07-09 17:36:35 Routine Visit Gonsales, Espinoza [facility] 1.840.114 350.1.13.10 4.2.7.2.686 [id number] [facility] 2020-07-09 15:45:00 2020-07-09 15:45:00 [facility] [id number] [facility] 2020-07-09 00:00:00 2020-07-09 00:00:00 Orders Only Doctor Unassigned, Glenvil [facility] 1..114 350.1.13.10 4.2.7.2.686 [id number] [facility] 2020-07-02 14:00:00 2020-07-02 14:00:00 Outpatient Dean DRU [facility] [id number] [facility] 2020-06-27 00:00:00 2020-06-27 00:00:00 Telephone Patriciachung [facility] 1.84.114 350.1.13.10 4.2.7.2.686 [id number] [facility] 2020-06-19 00:00:00 2020-06-19 00:00:00 Letter (Out) Espinoza Gonsales [facility] 1.84.114 350.1.13.10 4.2.7.2.686 [id number] [facility] 2020-06-19 00:00:00 2020-06-19 00:00:00 Orders Only Doctor Unassigned, Glenvil [facility] 1.2.114 350.1.13.10 4.2.7.2.686 [id number] [facility] 2020-06-18 15:58:50 2020-06-18 16:39:24 Routine Visit Constantineazeem [facility] 1.284.114 350.1.13.10 4.2.7.2.686 [id number] [facility] 2020-06-18 15:45:00 2020-06-18 15:45:00 Outpatient R IDALIA JAIN [facility] [id number] [facility] 2020-06-18 00:00:00 2020-06-18 00:00:00 Orders Only Doctor Unassigned, Glenvil [facility] 1.2.840.114 350.1.13.10 4.2.7.2.686 [id number] [facility] 2020-06-15 23:55:00 2020-06-16 10:40:00 Hospital Encounter Peg Ndiaye [facility] 1.2.114 350.1.13.10 4.2.7.2.686 [id number] [facility] 2020-06-08 00:00:00 2020-06-08 00:00:00 Tele[facility] 1.2.114 350.1.13.10 4.2.7.2.686 [id number] [facility] 2020-06-06 13:11:28 2020-06-06 14:01:53 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, Hardik Bryant [facility] [employer] SCOUT [facility] 1.2.114 350.1.13.10 4.2.7.2.686 [id number] [facility] 2020-06-06 13:00:00 2020-06-06 13:00:00 Outpatient P [facility] [id number] [facility] 2020-06-04 13:17:41 2020-06-04 13:48:54 Routine Visit Espinoza Gonsales [facility] Professio nal Building 1.2.114 350.1.13.10 4.2.7.2.686 [id number] [facility] 2020-06-04 13:00:00 2020-06-04 13:00:00 Outpatient R ESPINOZA GONSALES [facility] [id number] [facility] 2020-05-29 00:00:00 2020-05-29 00:00:00 Telephone Espinoza Gonsales [facility] [place] Profess[facility] nal Building 1.2.840.114 350.1.13.10 4.2.7.2.686 [id number] [facility] 2020-05-25 00:00:00 2020-05-25 00:00:00 Telephone Espinoza Gonsales [facility] nal [facility] 1.2.840.114 350.1.13.10 4.2.7.2.686 [id number] [facility] 2020-05-24 00:00:00 2020-05-24 00:00:00 Telephone Espinoza Gonsales [facility] Building 1.2.840.114 350.1.13.10 4.2.7.2.686 [id number] [facility] 2020-05-23 00:00:00 2020-05-23 00:00:00 Telephone Espinoza Gonsales [facility] nal Building 1.2.840.114 350.1.13.10 4.2.7.2.686 [id number] 134 [id number] [facility] 2020-05-09 13:23:12 2020-05-09 13:38:12 [employer] Visit 2, Adc Lab Espinoza Gonsales [facility] Building 1.2.840.114 350.1.13.10 4.2.7.2.686 [id number] [facility] 2020-05-09 13:00:00 2020-05-09 13:00:00 Outpatient R [facility] [id number] [facility] 2020-05-07 15:01:11 2020-05-08 17:04:04 Initial Visit Espinoza Gonsales [facility] Building 1.2.840.114 350.1.13.10 4.2.7.2.686 [id number] [facility] 2020-05-08 00:00:00 2020-05-08 00:00:00 Case Management Espinoza Gonsales [facility] Building 1.2.840.114 350.1.13.10 4.2.7.2.686 [id number] 134 [id number] [facility] 2020-05-08 00:00:00 2020-05-08 00:00:00 Case Management Espinoza G[place]ales [place] [facility] [id number] [facility] 2020-05-07 14:15:00 2020-05-07 14:15:00 Outpatient R ESPINOZA [facility]ONS[facility]ES [facility] [id number] [facility] 2020-05-07 00:00:00 2020-05-07 00:00:00 Orders Only Doctor Unassigned, [place] [facility] [id number] [facility] 2020-04-23 00:00:00 2020-04-23 00:00:00 Telephone Espinoza Gonsales [facility] [id number] [facility] 2020-04-16 11:00:00 2020-04-16 11:00:00 Outpatient R ESPINOZA [facility] [id number] [facility] 2018-04-11 20:58:00 2018-04-11 21:43:00 Emergency E PEG [facility] [id number] [facility] Results Test Description Test Time Test Comments Results Result Co mments [facility]*WW*2018-04-11 21:33:08 EXAM: Nasal bones , 3 VIEWSINDICATION: PainCOMPARISON: None availableTECHNIQUE: 3 views of the nasal bones.FINDINGS:No acute fracture or dislocation is identified. The nasal bones appear intact.No osseous lesions are identified. The orbits are intact. The paranasal sinusesare clear. The mandible isnormal in appearance. The temporomandibular jointsare normal.IMPRESSION:1. No acute fracture is identified.LOCATION: B2
[2024-10-23] MEDS ORDERED: ONDANSETRON 4 MG (ODT) TAB ONE (12:29)
[2024-10-23] MEDS ORDERED: PROMETHAZINE INJ 25 MG/ML AMP ONE (13:16)
[2024-10-23] MEDS ORDERED: NA CHLORIDE 0.9% 1,000 ML ONE (13:16)
[2024-10-23] MEDS ORDERED: KETOROLAC 30 MG/ML INJ ONE (15:25)
[2024-10-23] MEDS ORDERED: CEFTRIAXONE 500 MG/VIAL ONE (17:12)
[2024-10-23] MEDS ORDERED: AZITHROMYCIN 250 MG TAB ONE (17:13)
[2024-10-23 17:17] LABS: Albumin 3.9 g/dL (3.4-5.0); Albumin/Globulin Ratio 1.1 (1.1-1.8); Anion Gap 9.5 mEq/L (5.0-15.0); Bilirubin Total 0.4 mg/dL (0.2-1.0); Globulin 3.4 g/dL (2.3-3.5); Potassium 3.5 mEq/L (3.5-5.1); Protein, Total 7.3 g/dL (6.4-8.2)
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
--- NOTE | 2024-10-23 18:50 | RAD REPORT ---
EXAMINATION: Neck Angio CLINICAL INDICATION: Neck pain. Headache. Injury TECHNIQUE: Axial CT images were obtained from the aortic arch to the skull base after intravenous adm inistration of 100 cc Isovue-370 utilizing angiographic protocol. Multiplanar reformats, as well as 3D post-processing (maximum intensity projection images, volume rendered images and/or shaded surface rendered images) were generated and reviewed. One or more of the following dose reduction techniques were used: Automated exposure control, adjustment of the mA and/or kV according to patient size, and/or iterative reconstruction. Unless otherwise specified, incidental findings do not require dedicated imaging follow-up. COMPARISON: No prior exam. FINDINGS: The visualized aortic arch and great vessels do not demonstrate a significant abnormality The common carotid, internal carotid and external carotid arteries bilaterally unremarkable Vertebral arteries bilaterally unremarkable No significant stenosis noted. A dissection is not seen. Methods for NASCET criteria: Mild stenosis, 0% to 49%; Moderate stenosis 50% to 69%; Severe stenosis, 70% to 99% IMPRESSION: No acute vascular abnormality displayed
[2024-10-23 19:21] VITALS: TEMP 97; O2SAT 96
[2024-10-23 19:22] VITALS: BP 118/72
== END 2024-10-23 18:54 | disposition home or self-care (01) ==
LOC: ER 11:12
DX: T76.21XA Adult sexual abuse, suspected, initial encounter (principal)
CPT/HCPCS: 36415; 70450; 70496; 70498; 80053; 84703; 96372; 99284; J2550; J7030; Q0162; Q9967